=== PATIENT | female | born 1965 | race Caucasian/White ===

== ENCOUNTER → 2016-05-09 | Outpatient (CLI) | payer MEDICARE, MEDICAID | LOC: OD 12:26 | PROVIDERS: ATTEND Internal Medicine | DX: M25.551 Pain in right hip (principal); M25.552 Pain in left hip | CPT/HCPCS: 73522; 73552 ==

== ENCOUNTER → 2016-11-21 | Outpatient (CLI) | payer MEDICARE, MEDICAID ==
--- NOTE | 2016-11-21 16:10 | RADIOLOGY REPORT (SQ) ---
EXAM DESCRIPTION: CT HEAD WITHOUT COMPLETED DATE/TIME: 11/21/2016 3:54 pm REASON FOR STUDY: TREMOR R25.1 TREMOR, UNSPECIFIED COMPARISON: 12/11/2011 TECHNIQUE: Axial images acquired through the brain without intravenous contrast. Images reviewed wi th bone, brain and subdural windows. Images stored on PACS. All CT scanners at this facility use dose modulation, iterative reconstruction, and/or weight based d osing when appropriate to reduce radiation dose to as low as reasonably achievable (ALARA). [facility]: Dose Right [facility]: CareDose [facility]: Dose Right [facility]: Teradose 4D [facility]: Smart [facility] RADIATION DOSE: Up-to-date CT equipment and radiation dose reduction techniques were employed. CTDIv ol: 49.0 mGy. DLP: 783 mGy-cm. mGy. LIMITATIONS: None. FINDINGS: VENTRICLES: Normal size and contour. CEREBRUM: No masses. No hemorrhage. No midline shift. No evidence for acute infarction. Normal gra y/white matter differentiation. No areas of low density in the white matter. CEREBELLUM: No masses. No hemorrhage. No alteration of density. No evidence for acute infarction. EXTRAAXIAL SPACES: No fluid collections. No masses. ORBITS AND GLOBE: No intra- or extraconal masses. Normal contour of globe without masses. CALVARIUM: No fracture. PARANASAL SINUSES: No fluid or mucosal thickening. SOFT TISSUES: No mass or hematoma. OTHER: No other significant finding. IMPRESSION: NORMAL BRAIN CT WITHOUT CONTRAST. EVIDENCE OF ACUTE STROKE: NO. COMMENT: Quality ID # [id number]: Final reports with documentation of one or more dose reduction techniques (e.g., Automated exposure control, adjustment of the mA and/or kV according to patient size, use of iterative reconstruction technique) TECHNICAL DOCUMENTATION: JOB ID: [id number] [employer]- All Rights Reserved
== END ==
LOC: RAD 15:25
PROVIDERS: ATTEND Internal Medicine
DX: R25.1 Tremor, unspecified (principal)
CPT/HCPCS: 70450

== ENCOUNTER 2016-12-16 13:08 | Emergency (ER) | payer MEDICARE, MEDICAID ==
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
[2016-12-16] MEDS ORDERED: DIPH/PERTUSS(ACELL)/TETANUS VAC/PF 0.5 ML SYR (>=10YO) IM ONE (14:40)
[2016-12-16] MEDS ORDERED: RABIES VACCINE (PCEC)/PF 2.5 UNIT/1 ML KIT IM ONE (15:00)
[2016-12-16] MEDS ORDERED: RABIES IMMUNE GLOBULIN INJ/PF 300 UNIT/2 ML SDV IM ONE (15:00)
[2016-12-16] MEDS ORDERED: ONDANSETRON HCL INJ/PF 4 MG/2 ML SDV IV ONE (17:17)
[2016-12-16 17:47] VITALS: BP 112/68
== END 2016-12-16 17:39 | disposition home or self-care (01) ==
LOC: ER 13:08
DX: S61.452A Open bite of left hand, initial encounter (principal); W55.01XA Bitten by cat, initial encounter; F17.210 Nicotine dependence, cigarettes, uncomplicated; Z20.3 Contact with and (suspected) exposure to rabies
CPT/HCPCS: 90376; 90471; 90675; 90715; 96372; 99283

== ENCOUNTER 2017-02-17 10:23 | Inpatient (IN) | payer MEDICARE, MEDICAID ==
--- NOTE | 2017-02-17 11:50 | ER Document Report ---
ED Medical Screen (RME) - General Chief Complaint: Shortness Of Breath Stated Complaint: BREATHING PROBLEMS Time Seen by Provider: 02/17/17 11:39 Notes: 51-year-old female patient with COPD and multiple medical problems has a few day history of pain productive cough, developing laryngitis, has developed dyspnea on exertion. Went to see her primary care provider he was not in the office, went to see her pulmonary medicine doctor the check pulse ox told to come the emergency room. He has been doing doing nebs at home without benefit. She saw her primary care provider last and was treated with probably Tamiflu and Zithromax pack without any improvement. I have greeted and performed a rapid initial assessment of this patient. A comprehensive ED assessment and evaluation of the patient, analysis of test results and completion of the medical decision making process will be conducted by additional ED providers. TRAVEL OUTSIDE OF THE [place] IN LAST 30 DAYS: No - Related Data Allergies/Adverse Reactions: levofloxacin [From Levaquin] Allergy (Severe, Verified 12/18/16 13:24) Swelling of Throat lisinopril [Lisinopril] Allergy (Severe, Verified 12/18/16 13:24) sob, throat swelling acetaminophen [From Tylenol] Allergy (Verified 12/18/16 13:24) shock atorvastatin calcium [From Lipitor] Adverse Reaction (Severe, Verified 12/18/16 13:24) muscle cramps adhesive tape [Adhesive Tape] Adverse Reaction (Intermediate, Verified 12/18/16 13:24) Hives Past Medical History - Social History Chew tobacco use (# tins/day): No Frequency of alcohol use: None Drug Abuse: None - Past Medical History Cardiac Medical History: Reports: Hx Congestive Heart Failure, Hx Coronary Artery Disease - ANGINA, stent, Hx Heart Attack - 2011, Hx Hypercholesterolemia , Hx Hypertension - on meds Denies: Hx Atrial Fibrillation, Hx Peripheral Vascular Disease, Hx Pulmonary Embolism, Hx Heart Murmur Pulmonary Medical History: Reports: Hx Asthma, Hx Bronchitis - hx of, Hx COPD, Hx Pneumonia, Hx Respiratory Failure Denies: Hx Sleep Apnea, Hx Tuberculosis Neurological Medical History: Denies: Hx Cerebrovascular Accident, Hx Seizures Endocrine Medical History: Denies: Hx Graves' Disease, Hx Hyperthyroidism, Hx Hypothyroidism Renal/ Medical History: Reports: Hx Kidney Stones, Hx Ovarian Cysts. Denies: Hx End Stage Renal Disease, Hx Peritoneal Dialysis, Hx Pelvic Inflammatory Disease Malignancy Medical History: Denies: Hx Breast Cancer, Hx Cervical Cancer, Hx Leukemia, Hx Lung Cancer, Hx Ovarian Cancer GI Medical History: Denies: Hx Crohn's Disease, Hx Gastroesophageal Reflux Disease, Hx Hiatal Hernia, Hx Irritable Bowel, Hx Liver Failure, Hx Pancreatitis , Hx Ulcer Musculoskeltal Medical History: Reports Hx Arthritis, Denies Hx Fibromyalgia, Denies Hx Multiple Sclerosis, Denies Hx Muscular Dystrophy Psychiatric Medical History: Denies: Hx Bipolar Disorder, Hx Dementia, Hx Depression, Hx Post Traumatic Stress Disorder, Hx Schizophrenia Traumatic Medical History: Reports: Hx Fractures - right ankle fracture 1990 Infectious Medical History: Denies: Hx HIV Past Surgical History: Reports: Hx Cardiac Catheterization - with stents, Hx Cardiac Surgery - cardiac stent, Hx Section, Hx Pacemaker, Hx Tonsillectomy. Denies: Hx Appendectomy, Hx Bowel Surgery, Hx Cholecystectomy, Hx Colostomy, Hx Coronary Artery Bypass Graft, Hx Gastric Bypass Surgery, Hx Herniorrhaphy, Hx Hysterectomy, Hx Mastectomy, Hx Tubal Ligation - Immunizations Immunizations up to date: Yes Hx Diphtheria, Pertussis, Tetanus Vaccination: Yes History of Influenza Vaccine for 11/2016 - 04/2017 Season: No Physical Exam - Vital signs Vitals: Temp Pulse Resp BP Pulse Ox 98.1 F 84 16 134/92 H 96 02/17/17 10:41 02/17/17 10:41 02/17/17 10:41 02/17/17 10:41 02/17/17 10:41 Course - Vital Signs Vital signs: Temp Pulse Resp BP Pulse Ox 98.1 F 84 22 H 134/92 H 96 02/17/17 10:41 02/17/17 10:41 02/17/17 11:07 02/17/17 10:41 02/17/17 10:41
[2017-02-17 12:44] LABS: ABSOLUTE LYMPHOCYTES (AUTO) 1.2 10^3/uL (0.5-4.7); ABSOLUTE MONOCYTES (AUTO) 0.4 10^3/uL (0.1-1.4); ABSOLUTE NEUT (AUTO) 5.3 10^3/uL (1.7-8.2); BASOPHILS % (AUTO) 0.3 % (0-2); EOSINOPHILS % (AUTO) 0.3 % (0-6); HEMATOCRIT 42.2 % (36.0-47.0); HEMOGLOBIN 14.2 g/dL (12.0-15.5); MEAN CORPUSCULAR HEMOGLOBIN 27.5 pg (27.0-33.4); MEAN CORPUSCULAR HGB CONC 33.5 g/dL (32.0-36.0); MEAN CORPUSCULAR VOLUME 82 fl (80-97); MONOCYTES % (AUTO) 5.6 % (3-13); PLATELET COUNT 144 10^3/uL (150-450); RED BLOOD COUNT 5.14 10^6/uL (3.72-5.28); RED CELL DISTRIBUTION WIDTH 13.5 % (11.5-14.0); SEGMENTED NEUTROPHILS % (AUTO) 75.8 % (42-78); TOTAL CELLS COUNTED % (AUTO) 100 %; WHITE BLOOD COUNT 6.9 10^3/uL (4.0-10.5)
--- NOTE | 2017-02-17 12:49 | RADIOLOGY REPORT (SQ) ---
EXAM DESCRIPTION: CHEST SINGLE VIEW portable COMPLETED DATE/TIME: 02/17/2017 12:38 pm REASON FOR STUDY: COPD, PATTON, productive cough COMPARISON: 08/23/2015 EXAM PARAMETERS: NUMBER OF VIEWS: One view. TECHNIQUE: Single frontal radiographic view of the chest acquired. Portable RADIATION DOSE: NA LIMITATIONS: None. FINDINGS: LUNGS AND PLEURA: No opacities, masses or pneumothorax. No pleural effusion. MEDIASTINUM AND HILAR STRUCTURES: No masses. Contour normal. HEART AND VASCULAR STRUCTURES: Heart normal in size. Normal vasculature. BONES: No acute findings. HARDWARE: Stable OTHER: No other significant finding. IMPRESSION: NO ACUTE RADIOGRAPHIC FINDING IN THE CHEST. TECHNICAL DOCUMENTATION: JOB ID: [id number] [employer]- All Rights Reserved
[2017-02-17 12:53] LABS: ALANINE AMINOTRANSFERASE 45 U/L (9-52); ALBUMIN 4.1 g/dL (3.5-5.0); ALKALINE PHOSPHATASE 108 U/L (38-126); ANION GAP 12 (5-19); ASPARTATE AMINO TRANSFERASE 38 U/L (14-36); BILIRUBIN,DIRECT 0.2 mg/dL (0.0-0.4); BILIRUBIN,TOTAL 0.6 mg/dL (0.2-1.3); BLOOD UREA NITROGEN 5 mg/dL (7-20); CALCIUM 9.4 mg/dL (8.4-10.2); CARBON DIOXIDE 25 mmol/L (22-30); CHLORIDE 106 mmol/L (98-107); GLUCOSE 124 mg/dL (75-110); POTASSIUM 3.4 mmol/L (3.6-5.0); SODIUM 143.1 mmol/L (137-145)
[2017-02-17] MEDS ORDERED: IPRATROPIUM/ALBUTEROL 0.5-2.5 MG/3 ML AMPUL NEB ONE (12:53)
[2017-02-17] MEDS ORDERED: METHYLPREDNISOLONE INJ 125 MG/2 ML SDV IV ONE (12:53)
[2017-02-17] MEDS ORDERED: MAGNESIUM SULFATE/D5W 1 GM/100 ML RTUPB IV ONE (12:53)
--- NOTE | 2017-02-17 14:40 | ER Document Report ---
ED General - General Chief Complaint: Shortness Of Breath Stated Complaint: BREATHING PROBLEMS Time Seen by Provider: 02/17/17 11:39 TRAVEL OUTSIDE OF THE [place] IN LAST 30 DAYS: No - HPI Patient complains to provider of: Shortness of breath Notes: Patient coming in with a history of shortness of breath patient was recently seen by her torch straightener and heater started on a Z-[place] however continues to have shortness of breath sputum is nonproductive at this time. Denies any fevers chills. Patient was seen by her torch straightener and heater Dr. Fox today and told to come to the ER for low O2 saturations. By my evaluation patient is slightly tachypneic denies any chest pain denies any fevers chills nausea vomiting denies any abdominal pain. Patient has a normal SPO2 on examination. - Related Data Allergies/Adverse Reactions: levofloxacin [From Levaquin] Allergy (Severe, Verified 02/17/17 12:33) Swelling of Throat lisinopril [Lisinopril] Allergy (Severe, Verified 02/17/17 12:33) sob, throat swelling acetaminophen [From Tylenol] Allergy (Verified 02/17/17 12:33) shock rosuvastatin [From Crestor] Allergy (Verified 02/17/17 12:33) Hives atorvastatin calcium [From Lipitor] Adverse Reaction (Severe, Verified 02/17/17 12:33) muscle cramps adhesive tape [Adhesive Tape] Adverse Reaction (Intermediate, Verified 02/17/17 12:33) Hives Past Medical History - Social History Smoking Status: Current Some Day Smoker Chew tobacco use (# tins/day): No Frequency of alcohol use: None Drug Abuse: None Family History: CAD, CVA, DM, Malignancy Patient has suicidal ideation: No Patient has homicidal ideation: No - Past Medical History Cardiac Medical History: Reports: Hx Congestive Heart Failure, Hx Coronary Artery Disease - ANGINA, stent, Hx Heart Attack - 2011, Hx Hypercholesterolemia , Hx Hypertension - on meds Denies: Hx Atrial Fibrillation, Hx Peripheral Vascular Disease, Hx Pulmonary Embolism, Hx Heart Murmur Pulmonary Medical History: Reports: Hx Asthma, Hx Bronchitis - hx of, Hx COPD, Hx Pneumonia, Hx Respiratory Failure Denies: Hx Sleep Apnea, Hx Tuberculosis Neurological Medical History: Denies: Hx Cerebrovascular Accident, Hx Seizures Endocrine Medical History: Denies: Hx Graves' Disease, Hx Hyperthyroidism, Hx Hypothyroidism Renal/ Medical History: Reports: Hx Kidney Stones, Hx Ovarian Cysts. Denies: Hx End Stage Renal Disease, Hx Peritoneal Dialysis, Hx Pelvic Inflammatory Disease Malignancy Medical History: Denies: Hx Breast Cancer, Hx Cervical Cancer, Hx Leukemia, Hx Lung Cancer, Hx Ovarian Cancer GI Medical History: Denies: Hx Crohn's Disease, Hx Gastroesophageal Reflux Disease, Hx Hiatal Hernia, Hx Irritable Bowel, Hx Liver Failure, Hx Pancreatitis , Hx Ulcer Musculoskeltal Medical History: Reports Hx Arthritis, Denies Hx Fibromyalgia, Denies Hx Multiple Sclerosis, Denies Hx Muscular Dystrophy Psychiatric Medical History: Denies: Hx Bipolar Disorder, Hx Dementia, Hx Depression, Hx Post Traumatic Stress Disorder, Hx Schizophrenia Traumatic Medical History: Reports: Hx Fractures - right ankle fracture 1990 Infectious Medical History: Denies: Hx HIV Past Surgical History: Reports: Hx Cardiac Catheterization - with stents, Hx Cardiac Surgery - cardiac stent, Hx Section, Hx Pacemaker, Hx Tonsillectomy. Denies: Hx Appendectomy, Hx Bowel Surgery, Hx Cholecystectomy, Hx Colostomy, Hx Coronary Artery Bypass Graft, Hx Gastric Bypass Surgery, Hx Herniorrhaphy, Hx Hysterectomy, Hx Mastectomy, Hx Tubal Ligation - Immunizations Immunizations up to date: Yes Hx Diphtheria, Pertussis, Tetanus Vaccination: Yes Hx Pneumococcal Vaccination: 02/02/14 Review of Systems - Review of Systems Constitutional: No symptoms reported EENT: No symptoms reported Cardiovascular: No symptoms reported Respiratory: Short of breath, Wheezing Gastrointestinal: No symptoms reported Genitourinary: No symptoms reported Female Genitourinary: No symptoms reported Musculoskeletal: No symptoms reported Skin: No symptoms reported Hematologic/Lymphatic: No symptoms reported Neurological/Psychological: No symptoms reported -: Yes All other systems reviewed and negative Physical Exam - Vital signs Vitals: Temp Pulse Resp BP Pulse Ox 98.1 F 84 16 134/92 H 96 02/17/17 10:41 02/17/17 10:41 02/17/17 10:41 02/17/17 10:41 02/17/17 10:41 Interpretation: Normal - General General appearance: Appears well, Alert - HEENT Head: Normocephalic, Atraumatic Eyes: Normal Pupils: PERRL - Respiratory Respiratory status: Tachypnea Chest status: Nontender Breath sounds: Wheezing Chest palpation: Normal - Cardiovascular Rhythm: Regular Heart sounds: Normal auscultation Murmur: No - Abdominal Inspection: Normal Distension: No distension Bowel sounds: Normal Tenderness: Nontender Organomegaly: No organomegaly - Back Back: Normal, Nontender - Extremities General upper extremity: Normal inspection, Nontender, Normal color, Normal ROM , Normal temperature General lower extremity: Normal inspection, Nontender, Normal color, Normal ROM , Normal temperature, Normal weight bearing. No: Zulma's sign - Neurological Neuro grossly intact: Yes Cognition: Normal Orientation: AAOx4 Javier Coma Scale Eye Opening: Spontaneous [place] Coma Scale Verbal: Oriented [place] Coma Scale Motor: Obeys Commands Javier Coma Scale Total: 15 Speech: Normal Motor strength normal: LUE, RUE, LLE, RLE Sensory: Normal - Psychological Associated symptoms: Normal affect, Normal mood - Skin Skin Temperature: Warm Skin Moisture: Dry Skin Color: Normal Course - Re-evaluation Re-evalutation: 02/17/17 15:13 Patient laboratory studies showed a low potassium this will be replaced orally. Patient was ambulated in ER with SPO2 on the lower side [id number]. Patient still very tachypneic also in ambulation. No relief of symptoms therefore patient will be admitted for COPD exacerbation. 02/17/17 15:[address] Eli Benton covering physician for PCP agrees with admission to telemetry unit. - Vital Signs Vital signs: Temp Pulse Resp BP Pulse Ox 98.1 F 84 22 H 134/92 H 96 02/17/17 10:41 02/17/17 10:41 02/17/17 11:07 02/17/17 10:41 02/17/17 10:41 - Laboratory Result Diagrams: 02/17/17 12:15 02/17/17 12:15 Laboratory results interpreted by me: 02/17/17 02/17/17 02/17/17 12:15 12:15 13:40 Plt Count 144 L Carbonic Acid 1.03 L ABG pH 7.47 H ABG pCO2 34.1 L ABG pO2 71.5 L ABG Total CO2 25.1 H Potassium 3.4 L BUN 5 L Glucose 124 H AST 38 H Discharge - Discharge Clinical Impression: COPD with acute exacerbation Condition: Good Disposition: ADMITTED INPATIENT Admitting Provider: John Paul Carrasco covering Unit Admitted: Telemetry Referrals: JIMMY CORONA MD [Primary Care Provider] - Follow up as needed
[2017-02-17 15:01] LABS: ARTERIAL BLOOD FIO2 21%; ARTERIAL BLOOD H2CO3 1.03 mmol/L (1.05-1.35); ARTERIAL BLOOD HCO3 24.1 mmol/L (20-26); ARTERIAL BLOOD O2 SATURATION 95.4 % (94-98); ARTERIAL BLOOD PCO2 34.1 mmHg (35-45); ARTERIAL BLOOD PH 7.47 (7.35-7.45); ARTERIAL BLOOD PO2 71.5 mmHg (80-100); ARTERIAL BLOOD TOTAL CO2 25.1 mmol/L (21-25)
[2017-02-17] MEDS ORDERED: TRAMADOL HCL 50 MG TABLET PO PRN (19:07)
[2017-02-17] MEDS ORDERED: MECLIZINE HCL 25 MG TABLET PO PRN (19:07)
[2017-02-17] MEDS ORDERED: ENOXAPARIN SODIUM INJ 40 MG/0.4 ML DISP.SYRIN SUBCUT ONE (20:00)
[2017-02-17] MEDS ORDERED: (PENDING PHARMACY ID) (Pitavastatin Calcium [Livalo] 4 MG) PO SCH (22:00)
[2017-02-17] MEDS: GABAPENTIN 300 MG CAPSULE PO SCH (22:03)
[2017-02-17] MEDS: METHYLPREDNISOLONE INJ 125 MG/2 ML SDV IV SCH (22:04)
[2017-02-17] MEDS: IPRATROPIUM/ALBUTEROL 0.5-2.5 MG/3 ML AMPUL NEB PRN (22:32)
[2017-02-17] MEDS: DOXEPIN HCL 10 MG CAPSULE PO SCH (22:37)
[2017-02-18] MEDS: LANSOPRAZOLE 30 MG TAB.RAP.DR PO SCH (05:17)
[2017-02-18] MEDS: METHYLPREDNISOLONE INJ 125 MG/2 ML SDV IV SCH ×3 (05:17→22:01)
[2017-02-18] MEDS: IPRATROPIUM/ALBUTEROL 0.5-2.5 MG/3 ML AMPUL NEB PRN ×2 (09:40→17:17)
[2017-02-18] MEDS ORDERED: RANOLAZINE 2000 MG PO SCH (10:00)
[2017-02-18] MEDS ORDERED: OMEPRAZOLE 80 MG PO SCH (10:00)
[2017-02-18] MEDS: ENOXAPARIN SODIUM INJ 40 MG/0.4 ML DISP.SYRIN SUBCUT SCH (10:27)
[2017-02-18] MEDS: RANOLAZINE 500 MG TAB.SR.12H PO SCH (10:27)
--- NOTE | 2017-02-18 10:29 | EKG REPORT ---
SEVERITY:- ABNORMAL ECG - SINUS ARRHYTHMIA, RATE 64-88 PROBABLE LEFT ATRIAL ABNORMALITY BORDERLINE R WAVE PROGRESSION, ANTERIOR LEADS BORDERLINE T ABNORMALITIES, LATERAL LEADS : Confirmed by: Jefry Feng 18-Feb-2017 10:27:44
[2017-02-18] MEDS ORDERED: GABAPENTIN 300 MG CAPSULE PO PRN (11:10)
[2017-02-18] MEDS: CETIRIZINE 5 MG TABLET PO SCH (11:41)
[2017-02-18] MEDS: ASPIRIN 81 MG TABLET, CHEWABLE PO SCH (11:41)
[2017-02-18] MEDS: VALSARTAN 40 MG TABLET PO SCH (11:42)
[2017-02-18] MEDS: METOPROLOL SUCCINATE 25 MG TAB.SR.24H PO SCH (11:44)
[2017-02-18] MEDS: BUMETANIDE 1 MG TABLET PO SCH (11:44)
[2017-02-18] MEDS: CLOPIDOGREL BISULFATE 75 MG TABLET PO SCH (11:45)
[2017-02-18] MEDS ORDERED: ROFLUMILAST 500 MCG TABLET PO ONE (12:00)
[2017-02-18] MEDS ORDERED: (PENDING PHARMACY ID) (Tiotropium Br/Olodaterol Hcl [Stiolto Respimat Inhal Spray] 1 PUFF) IH SCH (17:45)
--- NOTE | 2017-02-18 17:48 | PDOC H&P ---
History of Present Illness Admission Date/PCP: 02/17/17 15:05 JIMMY CORONA MD History of Present Illness: DHAVAL ROD is a 51 year old female, She has a history of ischemic cardiomyopathy, chronic obstructive pulmonary disease, she was at the [employer] office for follow-up she was yet to see the [employer], she was found to have a low oxygen saturation by the office staff, she was then referred to the emergency room for evaluation. I saw her in the office couple of days before [place] when she presented with respiratory symptoms, cough and wheezing she was prescribed, antibiotic azithromycin with tapered dose prednisone but apparently she said her symptoms did not completely subside she felt some relief initially but after a while she became short of breath.In the emergency room she was evaluated, it was felt that she needed to be admitted to the hospital. The arterial blood gas on room air showed pH 7.47, PCO2 34.1, PO2 71, bicarbonate 24 Past Medical History Cardiac Medical History: Reports: Congestive Heart Failure, Coronary Artery Disease - ANGINA, stent, Myocardial Infarction - 2011, Hyperlipidema, Hypertension - on meds Pulmonary Medical History: Reports: Asthma, Bronchitis - hx of, Chronic Obstructive Pulmonary Disease (COPD), Pneumonia, Respiratory Failure Musculoskeltal Medical History: Reports: Arthritis Past Surgical History Past Surgical History: Reports: Cardiac Catheterization - with stents, Section, Pacemaker, Tonsillectomy Social History Smoking Status: Current Every Day Smoker Frequency of Alcohol Use: None Hx Recreational Drug Use: No Drugs: None Hx Prescription Drug Abuse: No - Advance Directive Resuscitation Status: Full Code Family History Family History: CAD, CVA, DM, Malignancy Parental Family History Reviewed: Yes Children Family History Reviewed: Yes Sibling(s) Family History Reviewed.: Yes Medication/Allergy Home Medications: Albuterol Sulfate [Proair HFA] 2 puff IH Q6HP PRN 02/17/17 Aspirin [Aspirin 81 mg Chewable Tablet] 81 mg PO DAILY 02/17/17 Budesonide/Formoterol Fumarate [Symbicort 160-4.5 Mcg Inhaler] 2 puff IH Q12 04/05 Bumetanide [Bumex 1 mg Tablet] 2 mg PO DAILY 02/17/17 Clopidogrel Bisulfate [Clopidogrel] 75 mg PO DAILY 02/17/17 Doxepin HCl [Sinequan 10 Mg Capsule] 10 mg PO QHS 02/17/17 Gabapentin [Neurontin] 600 mg PO QHS 02/17/17 Levocetirizine Dihydrochloride [Xyzal] 5 mg PO DAILY 02/17/17 Meclizine HCl [Antivert 25 mg Tablet] 25 mg PO Q8HP PRN 02/17/17 Metoprolol Succinate [Toprol Xl 25 mg Tab.sr] 25 mg PO DAILY 02/17/17 Omeprazole 80 mg PO DAILY 02/17/17 Pitavastatin Calcium [Livalo] 4 mg PO QHS 02/17/17 Ranolazine [Ranexa] 2,000 mg PO DAILY 02/17/17 Roflumilast [Daliresp 500 mcg Tablet] 500 mcg PO DAILY 02/17/17 Tiotropium Br/Olodaterol HCl [Stiolto Respimat Inhal [place]] 1 puff IH Q12 Tramadol HCl [Ultram 50 mg Tablet] 50 mg PO Q6HP PRN 02/17/17 Valsartan [Diovan 40 mg Tablet] 40 mg PO DAILY 02/17/17 Allergies/Adverse Reactions: levofloxacin [From Levaquin] Allergy (Severe, Verified 02/17/17 12:33) Swelling of Throat lisinopril [Lisinopril] Allergy (Severe, Verified 02/17/17 12:33) sob, throat swelling acetaminophen [From Tylenol] Allergy (Verified 02/17/17 12:33) shock rosuvastatin [From Crestor] Allergy (Verified 02/17/17 12:33) Hives atorvastatin calcium [From Lipitor] Adverse Reaction (Severe, Verified 02/17/17 12:33) muscle cramps adhesive tape [Adhesive Tape] Adverse Reaction (Intermediate, Verified 02/17/17 12:33) Hives Review of Systems Constitutional: ABSENT: chills, fever(s), headache(s), weight gain, weight loss Eyes: ABSENT: visual disturbances Ears: ABSENT: hearing changes Cardiovascular: PRESENT: dyspnea on exertion Respiratory: PRESENT: cough, dyspnea Gastrointestinal: ABSENT: abdominal pain, constipation, diarrhea, hematemesis, hematochezia, nausea, vomiting Genitourinary: ABSENT: dysuria, hematuria Musculoskeletal: ABSENT: joint swelling Integumentary: ABSENT: rash, wounds Neurological: ABSENT: abnormal gait, abnormal speech, confusion, dizziness, focal weakness, syncope Psychiatric: ABSENT: anxiety, depression, homidical ideation, suicidal ideation Endocrine: ABSENT: cold intolerance, heat intolerance, menstrual abnormalities, polydipsia, polyuria Hematologic/Lymphatic: ABSENT: easy bleeding, easy bruising, lymphadenopathy Physical Exam Vital Signs: Temp Pulse Resp BP Pulse Ox 98.8 F 86 22 H 148/82 H 97 02/18/17 15:26 02/18/17 17:17 02/18/17 17:17 02/18/17 15:26 02/18/17 17:17 Intake & Output 02/17/17 02/18/17 02/19/17 06:59 06:59 06:59 Intake Total 920 Balance 920 Weight 93.9 kg General appearance: PRESENT: no acute distress, well-developed, well-nourished Head exam: PRESENT: atraumatic, normocephalic Eye exam: PRESENT: PERRLA Ear exam: PRESENT: normal external ear exam Mouth exam: PRESENT: moist, tongue midline Respiratory exam: PRESENT: wheezes Cardiovascular exam: PRESENT: RRR, +S1, +S2 Pulses: PRESENT: normal dorsalis pedis pul, +2 pedal pulses bilateral Vascular exam: PRESENT: normal capillary refill GI/Abdominal exam: PRESENT: normal bowel sounds, soft Rectal exam: PRESENT: deferred Neurological exam: PRESENT: alert, awake, oriented to person, oriented to place , oriented to time, oriented to situation, CN II-XII grossly intact Psychiatric exam: PRESENT: appropriate affect, normal mood Skin exam: PRESENT: dry, intact, warm Results Impressions: Chest X-Ray 02/17/17 11:48 IMPRESSION: NO ACUTE RADIOGRAPHIC FINDING IN THE CHEST. Assessment & Plan - Diagnosis (1) Chronic obstructive pulmonary disease with (acute) exacerbation Is this a current diagnosis for this admission?: Yes Plan: She is admitted to be managed for COPD with acute exacerbation (2) Ischemic cardiomyopathy Is this a current diagnosis for this admission?: Yes
[2017-02-18 18:55] LABS: CREATINE KINASE MB 3.19 ng/mL (<4.55)
[2017-02-18 19:01] LABS: TROPONIN I < 0.012 ng/mL
[2017-02-18] MEDS ORDERED: IPRATROPIUM/ALBUTEROL 0.5-2.5 MG/3 ML AMPUL NEB PRN (19:56)
[2017-02-18] MEDS: IPRATROPIUM/ALBUTEROL 0.5-2.5 MG/3 ML AMPUL NEB SCH (20:47)
[2017-02-18] MEDS: GABAPENTIN 300 MG CAPSULE PO SCH (22:01)
[2017-02-18] MEDS: DOXEPIN HCL 10 MG CAPSULE PO SCH (22:01)
[2017-02-19] MEDS: IPRATROPIUM/ALBUTEROL 0.5-2.5 MG/3 ML AMPUL NEB SCH ×3 (01:59→13:29)
[2017-02-19 03:02] LABS: CREATINE KINASE MB 3.61 ng/mL (<4.55)
[2017-02-19 03:04] LABS: TROPONIN I < 0.012 ng/mL
[2017-02-19] MEDS: METHYLPREDNISOLONE INJ 125 MG/2 ML SDV IV SCH ×2 (06:38→13:29)
[2017-02-19] MEDS: LANSOPRAZOLE 30 MG TAB.RAP.DR PO SCH (06:38)
[2017-02-19 08:46] VITALS: BP 123/72
[2017-02-19] MEDS: ASPIRIN 81 MG TABLET, CHEWABLE PO SCH (09:36)
[2017-02-19] MEDS: BUMETANIDE 1 MG TABLET PO SCH (09:36)
[2017-02-19] MEDS: CETIRIZINE 5 MG TABLET PO SCH (09:37)
[2017-02-19] MEDS: CLOPIDOGREL BISULFATE 75 MG TABLET PO SCH (09:37)
[2017-02-19] MEDS: VALSARTAN 40 MG TABLET PO SCH (09:37)
[2017-02-19] MEDS: RANOLAZINE 500 MG TAB.SR.12H PO SCH (09:38)
[2017-02-19] MEDS: METOPROLOL SUCCINATE 25 MG TAB.SR.24H PO SCH (09:38)
[2017-02-19] MEDS: ENOXAPARIN SODIUM INJ 40 MG/0.4 ML DISP.SYRIN SUBCUT SCH (09:38)
[2017-02-19] MEDS ORDERED: ROFLUMILAST 500 MCG TABLET PO SCH (10:00)
[2017-02-19 11:29] LABS: CREATINE KINASE MB 3.78 ng/mL (<4.55); TROPONIN I < 0.012 ng/mL
--- NOTE | 2017-02-19 12:50 | PDOC DISCHARGE SUMMARY ---
General - Admit/Disc Date/PCP Admission Date/Primary Care Provider: 02/17/17 15:05 JIMMY CORONA MD Discharge Date: 02/19/17 - Discharge Diagnosis (1) Chronic obstructive pulmonary disease with (acute) exacerbation Is this a current diagnosis for this admission?: Yes (2) Ischemic cardiomyopathy Is this a current diagnosis for this admission?: Yes - Additional Information Resuscitation Status: Full Code Discharge Diet: Regular Discharge Activity: Activity As Tolerated Prescriptions: Dexamethasone [Dexpak] 1.5 mg PO ANGELICA #6 tab.ds.pk Home Medications: Albuterol Sulfate [Proair HFA] 2 puff IH Q6HP PRN 02/17/17 Aspirin [Aspirin 81 mg Chewable Tablet] 81 mg PO DAILY 02/17/17 Budesonide/Formoterol Fumarate [Symbicort 160-4.5 Mcg Inhaler] 2 puff IH Q12 04/05 Bumetanide [Bumex 1 mg Tablet] 2 mg PO DAILY 02/17/17 Clopidogrel Bisulfate [Clopidogrel] 75 mg PO DAILY 02/17/17 Doxepin HCl [Sinequan 10 mg Capsule] 10 mg PO QHS 02/17/17 Gabapentin [Neurontin] 600 mg PO QHS 02/17/17 Levocetirizine Dihydrochloride [Xyzal] 5 mg PO DAILY 02/17/17 Meclizine HCl [Antivert 25 mg Tablet] 25 mg PO Q8HP PRN 02/17/17 Metoprolol Succinate [Toprol Xl 25 mg Tab.sr] 25 mg PO DAILY 02/17/17 Omeprazole 80 mg PO DAILY 02/17/17 Pitavastatin Calcium [Livalo] 4 mg PO QHS 02/17/17 Ranolazine [Ranexa] 2,000 mg PO DAILY 02/17/17 Roflumilast [Daliresp 500 mcg Tablet] 500 mcg PO DAILY 02/17/17 Tiotropium Br/Olodaterol HCl [Stiolto Respimat Inhal [place]] 1 puff IH Q12 Tramadol HCl [Ultram 50 mg Tablet] 50 mg PO Q6HP PRN 02/17/17 Valsartan [Diovan 40 mg Tablet] 40 mg PO DAILY 02/17/17 Dexamethasone [Dexpak] 1.5 mg PO ANGELICA #6 tab.ds.pk 02/19/17 History of Present Illness History of Present Illness: DHAVAL RDO is a 51 year old female, She has a history of ischemic cardiomyopathy, chronic obstructive pulmonary disease, she was at the [facility] office for follow-up she was yet to see the shank maker, she was found to have a low oxygen saturation by the office staff, she was then referred to the emergency room for evaluation. I saw her in the office couple of days before [place] when she presented with respiratory symptoms, cough and wheezing she was prescribed, antibiotic azithromycin with tapered dose prednisone but apparently she said her symptoms did not completely subside she felt some relief initially but after a while she became short of breath.In the emergency room she was evaluated, it was felt that she needed to be admitted to the hospital. The arterial blood gas on room air showed pH 7.47, PCO2 34.1, PO2 71, bicarbonate 24 Hospital Course Hospital Course: Patient was admitted for the management of acute COPD exacerbation in the setting of chronic ischemic cardiomyopathy. She was treated with intravenous Solu-Medrol, bronchodilators with DuoNeb, IV antibiotic with very good results. This morning she wants to go home, she says she is able to walk distances without getting short of breath, she is also concerned about her pets, she has a dog and a cat and no one is home to feed them. She is not fully recovered lung function, on auscultation of the chest there is still faint wheeze in both lung he but she is bet on going home Physical Exam Vital Signs: Temp Pulse Resp BP Pulse Ox 98.4 F 89 18 123/72 94 02/19/17 08:45 02/19/17 08:45 02/19/17 08:45 02/19/17 08:45 02/19/17 08:45 Intake & Output 02/18/17 02/19/17 02/20/17 06:59 06:59 06:59 Intake Total 920 970 Balance 920 970 Weight 93.9 kg General appearance: PRESENT: no acute distress, well-developed, well-nourished Head exam: PRESENT: atraumatic, normocephalic Eye exam: PRESENT: conjunctiva pink, EOMI, PERRLA Ear exam: PRESENT: normal external ear exam Mouth exam: PRESENT: moist, tongue midline Neck exam: PRESENT: full ROM Respiratory exam: PRESENT: wheezes Cardiovascular exam: PRESENT: RRR, +S1, +S2 Pulses: PRESENT: normal dorsalis pedis pul, +2 pedal pulses bilateral Vascular exam: PRESENT: normal capillary refill GI/Abdominal exam: PRESENT: normal bowel sounds, soft Rectal exam: PRESENT: deferred Neurological exam: PRESENT: alert, awake, oriented to person, oriented to place , oriented to time, oriented to situation, CN II-XII grossly intact Psychiatric exam: PRESENT: appropriate affect, normal mood Skin exam: PRESENT: dry, intact, warm Results Laboratory Results: 02/18/17 02/18/17 02/19/17 18:00 18:00 02:07 Creatine Kinase 112 107 CK-MB (CK-2) 3.19 Troponin I < 0.012 02/19/17 02/19/17 02/19/17 02:07 10:43 10:43 Creatine Kinase 79 CK-MB (CK-2) 3.61 3.78 Troponin I < 0.012 < 0.012 Impressions: Chest X-Ray 02/17/17 11:48 IMPRESSION: NO ACUTE RADIOGRAPHIC FINDING IN THE CHEST.
[2017-02-20] MEDS ORDERED: VALSARTAN 40 MG TABLET PO SCH (06:00)
[2017-02-20] MEDS ORDERED: ROFLUMILAST 500 MCG TABLET PO SCH (06:00)
[2017-02-20] MEDS ORDERED: METOPROLOL SUCCINATE 25 MG TAB.SR.24H PO SCH (06:00)
--- NOTE | 2017-02-20 15:08 | Physician Advisory Note ---
Physician Advisor ProgressNote .: [place] [facility] [place] [facility] have reviewed [facility] medical record for this patient. Physician Advisor Statement: Please consider documenting, if you agree: 1. "Chronic systolic & diastolic CHF, EF 25-30%, with mild pulmonary HTN" 2. "obesity with BMI 40.4" Thanks! CK
== END 2017-02-19 14:00 | disposition home or self-care (01) | DRG 192 ==
LOC: ER 10:23 → EH 15:05 → 5 17:45
PROVIDERS: ADMIT Internal Medicine; ATTEND Internal Medicine
PROC: 3E0F73Z Introduction of Anti-inflammatory into Respiratory Tract, Via Natural or Artificial Opening (ICD-10-PCS; principal; 2017-02-17)
DX: J44.1 Chronic obstructive pulmonary disease with (acute) exacerbation (principal); I25.5 Ischemic cardiomyopathy; I50.9 Heart failure, unspecified; I25.119 Atherosclerotic heart disease of native coronary artery with unspecified angina pectoris; E78.5 Hyperlipidemia, unspecified; I11.0 Hypertensive heart disease with heart failure; M19.90 Unspecified osteoarthritis, unspecified site; F17.210 Nicotine dependence, cigarettes, uncomplicated; I25.2 Old myocardial infarction; Z79.82 Long term (current) use of aspirin; Z79.899 Other long term (current) drug therapy; Z95.0 Presence of cardiac pacemaker; Z95.5 Presence of coronary angioplasty implant and graft; Z82.3 Family history of stroke; Z83.3 Family history of diabetes mellitus; Z80.9 Family history of malignant neoplasm, unspecified; Z82.49 Family history of ischemic heart disease and other diseases of the circulatory system; Z88.6 Allergy status to analgesic agent; Z88.3 Allergy status to other anti-infective agents; Z88.8 Allergy status to other drugs, medicaments and biological substances
CPT/HCPCS: 36415; 36600; 71045; 80053; 82550; 82553; 82803; 84484; 85025; 87040; 87070; 87205; 87493; 93005; 93010; 94640; 96365; 96375; 99285; J2930; J3475; J3490; J7620

== ENCOUNTER → 2017-06-02 | Outpatient (CLI) | payer MEDICARE, MEDICAID ==
--- NOTE | 2017-06-02 14:11 | RADIOLOGY REPORT (SQ) ---
EXAM DESCRIPTION: CT HEAD WITHOUT COMPLETED DATE/TIME: 06/02/2017 1:58 pm REASON FOR STUDY: HEADACHE (R51) R51 HEADACHE COMPARISON: CT brain 11/21/2016 TECHNIQUE: Axial images acquired through the brain without intravenous contrast. Images reviewed wi th bone, brain and subdural windows. Additional sagittal and coronal reconstructions were generated. Images stored on PACS. All CT scanners at this facility use dose modulation, iterative reconstruction, and/or weight based d osing when appropriate to reduce radiation dose to as low as reasonably achievable (ALARA). [facility]: Dose Right [facility]: CareDose [facility]: Dose Right [facility]: Teradose 4D [facility]: [place] RADIATION DOSE: CT Rad equipment meets quality standard of care and radiation dose reduction techniq ues were employed. CTDIvol: 48.5 mGy. DLP: 855 mGy-cm. mGy. LIMITATIONS: None. FINDINGS: VENTRICLES: Normal size and contour. CEREBRUM: No masses. No hemorrhage. No midline shift. No evidence for acute infarction. Normal gra y/white matter differentiation. No areas of low density in the white matter. CEREBELLUM: No masses. No hemorrhage. No alteration of density. No evidence for acute infarction. EXTRAAXIAL SPACES: No fluid collections. No masses. ORBITS AND GLOBE: No intra- or extraconal masses. Normal contour of globe without masses. CALVARIUM: No fracture. PARANASAL SINUSES: No fluid or mucosal thickening. SOFT TISSUES: No mass or hematoma. OTHER: No other significant finding. IMPRESSION: NORMAL BRAIN CT WITHOUT CONTRAST. EVIDENCE OF ACUTE STROKE: NO. COMMENT: Quality ID # [id number]: Final reports with documentation of one or more dose reduction techniques (e.g., Automated exposure control, adjustment of the mA and/or kV according to patient size, use of iterative reconstruction technique) TECHNICAL DOCUMENTATION: JOB ID: [id number] [email or web address]- All Rights Reserved Reading location - IP/workstation name: [email or web address]
== END ==
LOC: RAD 13:32
PROVIDERS: ATTEND Internal Medicine
DX: R51 Headache (principal)
CPT/HCPCS: 70450

== ENCOUNTER → 2017-06-09 | Outpatient (CLI) | payer MEDICARE, MEDICAID | LOC: OD 11:07 | PROVIDERS: ATTEND Otolaryngology | DX: J30.2 Other seasonal allergic rhinitis (principal) | CPT/HCPCS: 36415; 82785; 86003 ==

== ENCOUNTER 2017-06-24 07:39 | Day surgery (SDC) | payer MEDICARE, MEDICAID ==
[~2017-06-24 07:39] MED LIST: DIPHENHYDRAMINE HCL 50 MG/ML VIAL ONE; EPINEPHRINE INJ 1 MG/10 ML DISP.SYRIN ONE; FENTANYL CITRATE INJ/PF 100 MCG/2 ML AMPUL ONE; FLUMAZENIL INJ 0.5 MG/5 ML VIAL ONE; GLUCAGON,HUMAN RECOMB 1 MG INJ ONE; NALOXONE HCL INJ/PF 0.4 MG/1 ML SDV ONE; ONDANSETRON HCL INJ/PF 4 MG/2 ML SDV ONE
[2017-06-24] MEDS: MIDAZOLAM 2 MG/2 ML INJ ONE ×2 (08:08→08:12)
--- NOTE | 2017-06-24 08:27 | Operative Report ---
Operative Report DATE OF SURGERY: 06/24/17 Operative Report: The risks benefits and alternatives of the procedure explained to the patient in detail and informed consent is obtained.A GIF Olympus video scope was inserted into the patient's mouth and hypopharynx, the esophagus is identified intubated and insufflated, the scope was then advanced through the esophagus stomach and duodenum, retroflexion maneuver is done, the esophagus stomach and first and second portions of the duodenum examined PREOPERATIVE DIAGNOSIS: Dysphagia POSTOPERATIVE DIAGNOSIS: Schatzki's ring status post breakage. Hiatal hernia. Gastritis status post biopsy rule out Helicobacter pylori. Duodenitis OPERATION: EGD with biopsy SURGEON: RAJEEV ONOFRE ANESTHESIA: Moderate Sedation - 4 mg of Versed, 50 mcg of fentanyl. Conscious sedation monitoring time 30 minutes. TISSUE REMOVED OR ALTERED: As noted above. COMPLICATIONS: None. ESTIMATED BLOOD LOSS: None. INTRAOPERATIVE FINDINGS: As noted above. PROCEDURE: Patient tolerated procedure well. No immediate postprocedure complications are noted. Patient discharged in good condition. Discharge date 06/24/2017. Discharge diet: Regular. Discharge activity: Regular. 2-3 week follow-up to discuss findings. Patient is instructed to call the office or proceed to the emergency room should there be any further problems or questions. We will wait on pathology.
[2017-06-24 09:21] VITALS: BP 102/67
== END 2017-06-24 09:30 | disposition home or self-care (01) ==
LOC: END 07:39
PROVIDERS: ATTEND Internal Medicine Gastroenterology
DX: K22.2 Esophageal obstruction (principal); K44.9 Diaphragmatic hernia without obstruction or gangrene; K29.80 Duodenitis without bleeding; K29.70 Gastritis, unspecified, without bleeding; K21.9 Gastro-esophageal reflux disease without esophagitis; F17.210 Nicotine dependence, cigarettes, uncomplicated; Z79.899 Other long term (current) drug therapy; Z79.82 Long term (current) use of aspirin; Z79.51 Long term (current) use of inhaled steroids; Z88.8 Allergy status to other drugs, medicaments and biological substances
CPT/HCPCS: 43239; 88342 ×2; 88305 ×2; J2250; J3010; J0171; J1200; J1610; J2310; J2405; J3490

== ENCOUNTER → 2017-11-13 | Outpatient (CLI) | payer MEDICARE, MEDICAID ==
--- NOTE | 2017-11-13 08:30 | RADIOLOGY REPORT (SQ) ---
EXAM DESCRIPTION: CT CHEST WITHOUT COMPLETED DATE/TIME: 11/13/2017 8:16 am REASON FOR STUDY: DYSPNEA (R06.00) R06.00 DYSPNEA, UNSPECIFIED COMPARISON: 01/31/2014 TECHNIQUE: CT scan performed of the chest without intravenous contrast. Images reviewed with lung, soft tissue and bone windows. Reconstructed coronal and sagittal MPR images reviewed. All images st ored on PACS. All CT scanners at this facility use dose modulation, iterative reconstruction, and/or weight based d osing when appropriate to reduce radiation dose to as low as reasonably achievable (ALARA). [facility]: Dose Right [facility]: CareDose [facility]: Dose Right [facility]: Teradose 4D [facility]: [employer] RADIATION DOSE: CT Rad equipment meets quality standard of care and radiation dose reduction techniq ues were employed. CTDIvol: 12.1 mGy. DLP: 458 mGy-cm. mGy. LIMITATIONS: No technical limitations. FINDINGS: LUNGS AND PLEURA: Mild bilateral emphysematous changes are again noted. No focal masses, consolidation or effusions. HILAR AND MEDIASTINAL STRUCTURES: No identified masses or abnormal nodes. No obvious aneurysm. HEART AND VASCULAR STRUCTURES: No aneurysm. No pericardial effusion. UPPER ABDOMEN: Left adrenal adenoma is again noted. Calcified renal mass previously described is not imaged on the current study. THYROID AND OTHER SOFT TISSUES: No masses. No adenopathy. BONES: No significant finding. HARDWARE: Battery pack and leads remain in place. OTHER: No other significant findings. IMPRESSION: Mild emphysematous changes. No acute findings in the chest. Stable left adrenal adenom a. TECHNICAL DOCUMENTATION: JOB ID: [id number] Quality ID # [id number]: Final reports with documentation of one or more dose reduction techniques (e.g., Au tomated exposure control, adjustment of the mA and/or kV according to patient size, use of iterative reconstruction technique) 2010 [employer]- All Rights Reserved Reading location - IP/workstation name: [email or web address]
== END ==
LOC: RAD 07:57
PROVIDERS: ATTEND Physician Assistant
DX: R06.00 Dyspnea, unspecified (principal); D35.02 Benign neoplasm of left adrenal gland
CPT/HCPCS: 71250

== ENCOUNTER 2018-05-25 13:50 | Inpatient (IN) | payer MEDICARE, MEDICAID ==
[2018-05-25 15:07] LABS: HEMATOCRIT 42.2 % (36.0-47.0); HEMOGLOBIN 14.4 g/dL (12.0-15.5); MEAN CORPUSCULAR HEMOGLOBIN 28.3 pg (27.0-33.4); MEAN CORPUSCULAR VOLUME 83 fl (80-97); RED BLOOD COUNT 5.06 10^6/uL (3.72-5.28); WHITE BLOOD COUNT 4.9 10^3/uL (4.0-10.5)
--- NOTE | 2018-05-25 15:26 | RADIOLOGY REPORT (SQ) ---
EXAM DESCRIPTION: CHEST 2 VIEWS COMPLETED DATE/TIME: 05/25/2018 3:12 pm REASON FOR STUDY: COPD COMPARISON: CT chest 11/13/2017 AP chest 02/17/2017, 08/23/2015 EXAM PARAMETERS: NUMBER OF VIEWS: two views TECHNIQUE: Digital Frontal and Lateral radiographic views of the chest acquired. RADIATION DOSE: NA LIMITATIONS: none FINDINGS: LUNGS AND PLEURA: Minimal airspace disease just above the left hemidiaphragm, pneumonia ve rsus atelectasis. Remainder of the lungs are hyperinflated but clear. No pleural effusion or pneumothorax. MEDIASTINUM AND HILAR STRUCTURES: No masses or contour abnormalities. HEART AND VASCULAR STRUCTURES: Heart normal size. No evidence for failure. BONES: No acute findings. HARDWARE: Left-sided dual lead pacemaker OTHER: No other significant finding. IMPRESSION: Minimal patchy left basilar airspace disease atelectasis versus pneumonia. TECHNICAL DOCUMENTATION: JOB ID: [id number] [employer]- All Rights Reserved Reading location - IP/workstation name: [email or web address]
[2018-05-25 15:27] LABS: ALANINE AMINOTRANSFERASE 34 U/L (9-52); ALBUMIN 3.7 g/dL (3.5-5.0); ALKALINE PHOSPHATASE 94 U/L (38-126); ANION GAP 10 (5-19); ASPARTATE AMINO TRANSFERASE 33 U/L (14-36); BILIRUBIN,DIRECT 0.3 mg/dL (0.0-0.4); BILIRUBIN,TOTAL 0.5 mg/dL (0.2-1.3); BLOOD UREA NITROGEN 9 mg/dL (7-20); CALCIUM 8.9 mg/dL (8.4-10.2); CARBON DIOXIDE 23 mmol/L (22-30); CHLORIDE 103 mmol/L (98-107); GLUCOSE 92 mg/dL (75-110); POTASSIUM 4.4 mmol/L (3.6-5.0); SODIUM 135.9 mmol/L (137-145); TOTAL PROTEIN 6.9 g/dL (6.3-8.2)
[2018-05-25 15:29] LABS: PLATELET COUNT 97 10^3/uL (150-450)
[2018-05-25] MEDS: METHYLPREDNISOLONE INJ 125 MG/2 ML SDV IV SCH ×2 (15:57→21:58)
[2018-05-25] MEDS: IPRATROPIUM/ALBUTEROL 0.5-2.5 MG/3 ML AMPUL NEB SCH ×2 (16:34→19:51)
[2018-05-25] MEDS ORDERED: DEXAMETHASONE 4 MG TABLET PO SCH ×2 (18:00→22:00)
[2018-05-25] MEDS ORDERED: AZITHROMYCIN 500 MG in DEXTROSE 5%-WATER 250 ML IV SCH (18:00)
[2018-05-25] MEDS ORDERED: MECLIZINE HCL 25 MG TABLET PO PRN (20:14)
[2018-05-25] MEDS ORDERED: (PENDING PHARMACY ID) (Pitavastatin Calcium [Livalo] 4 MG) PO SCH (20:15)
[2018-05-25] MEDS ORDERED: ROFLUMILAST PO SCH (20:15)
[2018-05-25] MEDS ORDERED: RANOLAZINE 2000 MG PO SCH (20:15)
[2018-05-25] MEDS ORDERED: PILOCARPINE HCL 5 MG PO SCH (20:15)
--- NOTE | 2018-05-25 20:18 | PDOC H&P ---
History of Present Illness Admission Date/PCP: 05/25/18 13:50 History of Present Illness: DHAVAL ROD is a 52 year old female, she has ischemic cardiomyopathy, chronic obstructive pulmonary disease, she came to the office for evaluation of respiratory symptoms, cough, shortness of breath, wheezing, the oxygen saturation was in the low 90s, attempt was made to treat outpatient previously without much success. She was admitted for management of her symptoms. Right chest x-ray that was done demonstrated minimal patchy left basilar airspace disease, atelectasis versus pneumonia there was also hyperinflated lung but clear. She continues to struggle with smoking cessation, she uses vapor as replacement for tobacco use Past Medical History Cardiac Medical History: Reports: Congestive Heart Failure, Coronary Artery Disease - ANGINA, stent, Myocardial Infarction - 2012, Hyperlipidema Pulmonary Medical History: Reports: Asthma, Bronchitis - hx of, Chronic Obstructive Pulmonary Disease (COPD), Respiratory Failure Musculoskeltal Medical History: Reports: Arthritis Past Surgical History Past Surgical History: Reports: Cardiac Catheterization - with stents, Section, Hysterectomy, Pacemaker, Tonsillectomy Social History Smoking Status: Former Smoker Last Time Smoked: 02/09/18 Frequency of Alcohol Use: Occasional Hx Recreational Drug Use: No Drugs: None Hx Prescription Drug Abuse: No Family History Family History: CAD, CVA, DM, Malignancy Parental Family History Reviewed: Yes Children Family History Reviewed: Yes Sibling(s) Family History Reviewed.: Yes Medication/Allergy Home Medications: Albuterol Sulfate [Proair HFA Inhalation Aerosol 8.5 gm MDI] 2 puff IH Q4HP PRN 05/25/18 Aspirin [Ecotrin 81 mg EC Tablet] 81 mg PO DAILY 05/25/18 Budesonide/Formoterol Fumarate [Symbicort HFA 160-4.5 mcg Inhaler 6 gm] 2 puff IH Q12 05/25/18 Bumetanide [Bumex 1 mg Tablet] 2 mg PO Q12 05/25/18 Chlorpheniramine Maleate [Chlor-Trimeton 4 mg Tablet] 4 mg PO Q6HP PRN 05/25/18 Clopidogrel Bisulfate [Plavix 75 mg Tablet] 75 mg PO DAILY 05/25/18 Dexlansoprazole [Dexilant 60 mg Capsule] 60 mg PO DAILY 05/25/18 Doxepin HCl [Sinequan 10 mg Capsule] 10 mg PO QHS 05/25/18 Gabapentin [Neurontin] 600 mg PO Q6HP PRN 05/25/18 Levocetirizine Dihydrochloride [Xyzal] 5 mg PO QHS 05/25/18 Meclizine HCl [Antivert 25 mg Tablet] 25 mg PO Q8HP PRN 05/25/18 Metoprolol Succinate [Toprol Xl 25 mg Tab.sr] 25 mg PO DAILY 05/25/18 [place] HCl [[place]] 5 mg PO Q6 05/25/18 Pitavastatin Calcium [Livalo] 4 mg PO DAILY 05/25/18 Ranolazine [Ranexa] 2,000 mg PO DAILY 05/25/18 Roflumilast [Daliresp 500 mcg Tablet] 1,500 mcg PO DAILY 05/25/18 Tiotropium Br/Olodaterol HCl [Stiolto Respimat Inhal [place]] 1 puff IH Q12 11/04 Tramadol HCl [Ultram 50 mg Tablet] 50 mg PO Q6HP PRN 05/25/18 Valsartan [Diovan 40 mg Tablet] 40 mg PO DAILY 05/25/18 Allergies/Adverse Reactions: acetaminophen [From Tylenol] Allergy (Severe, Verified 06/22/17 14:36) Anaphylaxis levofloxacin [From Levaquin] Allergy (Severe, Verified 06/22/17 14:36) Anaphylaxis lisinopril [Lisinopril] Allergy (Severe, Verified 06/22/17 14:36) sob, throat swelling rosuvastatin [From Crestor] Allergy (Mild, Verified 06/22/17 14:36) Hives atorvastatin calcium [From Lipitor] Adverse Reaction (Severe, Verified 06/22/17 14:36) muscle cramps adhesive tape [Adhesive Tape] Adverse Reaction (Intermediate, Verified 06/22/17 14:36) Hives Review of Systems Constitutional: ABSENT: chills, fever(s), headache(s), weight gain, weight loss Eyes: ABSENT: visual disturbances Ears: ABSENT: hearing changes Cardiovascular: ABSENT: chest pain, dyspnea on exertion, edema, orthropnea, palpitations Respiratory: PRESENT: cough, dyspnea, sputum Gastrointestinal: ABSENT: as per HPI, abdominal pain, bloating, coffee ground emesis, constipation, diarrhea, dysphagia, heartburn, hematemesis, hematochezia, melena, nausea, vomiting, other Genitourinary: ABSENT: dysuria, hematuria Musculoskeletal: ABSENT: joint swelling Integumentary: ABSENT: rash, wounds Neurological: ABSENT: abnormal gait, abnormal speech, confusion, dizziness, focal weakness, syncope Psychiatric: ABSENT: anxiety, depression, homidical ideation, suicidal ideation Endocrine: ABSENT: cold intolerance, heat intolerance, menstrual abnormalities, polydipsia, polyuria Hematologic/Lymphatic: ABSENT: easy bleeding, easy bruising, lymphadenopathy Physical Exam Vital Signs: Temp Pulse Resp BP Pulse Ox 98.4 F 80 26 H 135/77 H 93 05/25/18 14:15 05/25/18 16:34 05/25/18 16:34 05/25/18 14:15 05/25/18 16:34 Intake & Output 05/24/18 05/25/18 05/26/18 06:59 06:59 06:59 Intake Total 240 Balance 240 General appearance: PRESENT: mild distress Head exam: PRESENT: atraumatic, normocephalic Eye exam: PRESENT: PERRLA Neck exam: PRESENT: full ROM Respiratory exam: PRESENT: wheezes Cardiovascular exam: PRESENT: RRR, +S1, +S2 Vascular exam: PRESENT: normal capillary refill GI/Abdominal exam: PRESENT: normal bowel sounds, soft Rectal exam: PRESENT: deferred Neurological exam: PRESENT: alert, motor sensory deficit Psychiatric exam: PRESENT: appropriate affect, normal mood Skin exam: PRESENT: dry, intact, warm Results Laboratory Results: 05/25/18 14:52 05/25/18 14:52 05/25/18 05/25/18 14:52 14:52 WBC 4.9 RBC 5.06 Hgb 14.4 Hct 42.2 MCV 83 MCH 28.3 MCHC 34.0 RDW 14.0 Plt Count 97 L Sodium 135.9 L Potassium 4.4 Chloride 103 Carbon Dioxide 23 Anion Gap 10 BUN 9 Creatinine 0.64 Est GFR ( Amer) > 60 Est GFR (Non-Af Amer) > 60 Glucose 92 Calcium 8.9 Total Bilirubin 0.5 AST 33 ALT 34 Alkaline Phosphatase 94 Total Protein 6.9 Albumin 3.7 Impressions: Chest X-Ray 05/25/18 00:00 IMPRESSION: Minimal patchy left basilar airspace disease atelectasis versus pneumonia. Assessment & Plan - Diagnosis (1) COPD with acute exacerbation Is this a current diagnosis for this admission?: Yes Plan: Patient is admitted for management
[2018-05-25] MEDS ORDERED: ONDANSETRON 4 MG TAB.RAPDIS ONE (20:32)
[2018-05-25] MEDS: VALSARTAN 40 MG TABLET PO SCH (20:50)
[2018-05-25] MEDS: METOPROLOL SUCCINATE 25 MG TAB.SR.24H PO SCH (21:49)
[2018-05-25] MEDS: CLOPIDOGREL BISULFATE 75 MG TABLET PO SCH (21:49)
[2018-05-25] MEDS: BUMETANIDE 1 MG TABLET PO SCH (21:49)
[2018-05-25] MEDS: PANTOPRAZOLE SODIUM 40 MG TABLET.DR PO SCH (21:49)
[2018-05-25] MEDS: ROFLUMILAST 500 MCG TABLET PO SCH (21:50)
[2018-05-25] MEDS: CETIRIZINE 5 MG TABLET PO SCH (21:50)
[2018-05-25] MEDS: DOXEPIN HCL 10 MG CAPSULE PO SCH (21:55)
[2018-05-25] MEDS: GABAPENTIN 300 MG CAPSULE PO PRN (21:57)
[2018-05-25] MEDS: ASPIRIN 81 MG TABLET, ENT COATED PO SCH (21:57)
[2018-05-25] MEDS: DEXAMETHASONE SOD PHOSPHATE INJ 4 MG/1 ML VIAL IV SCH (21:58)
[2018-05-25] MEDS: TRAMADOL HCL 50 MG TABLET PO PRN (22:00)
[2018-05-25] MEDS ORDERED: (PENDING PHARMACY ID) (Tiotropium Br/Olodaterol Hcl [Stiolto Respimat Inhal Spray] 1 PUFF) IH SCH (22:00)
[2018-05-25] MEDS ORDERED: ATORVASTATIN CALCIUM 20 MG TABLET PO SCH (22:00)
[2018-05-26 00:18] LABS: APPEARANCE,URINE TURBID; BILIRUBIN,URINE NEGATIVE (NEGATIVE); COLOR,URINE YELLOW; GLUCOSE, URINE NEGATIVE (NEGATIVE); KETONES,URINE NEGATIVE (NEGATIVE); LEUKOCYTE ESTERASE,URINE NEGATIVE (NEGATIVE); NITRITE,URINE NEGATIVE (NEGATIVE); PROTEIN,URINE 30 mg/dL (NEGATIVE); URINE SPECIFIC GRAVITY 1.024
[2018-05-26] MEDS: IPRATROPIUM/ALBUTEROL 0.5-2.5 MG/3 ML AMPUL NEB SCH ×6 (00:28→20:55)
[2018-05-26] MEDS: DEXAMETHASONE SOD PHOSPHATE INJ 4 MG/1 ML VIAL IV SCH ×3 (05:31→22:39)
[2018-05-26] MEDS: ONDANSETRON 4 MG TAB.RAPDIS PO PRN ×2 (07:49→17:26)
[2018-05-26] MEDS ORDERED: FLUTICASONE/VILANTEROL 200-25 MCG/DOSE IH SCH (10:00)
[2018-05-26] MEDS: RANOLAZINE 500 MG TAB.SR.12H PO SCH (10:03)
[2018-05-26] MEDS: PANTOPRAZOLE SODIUM 40 MG TABLET.DR PO SCH (10:03)
[2018-05-26] MEDS: ROFLUMILAST 500 MCG TABLET PO SCH (10:05)
[2018-05-26] MEDS: CLOPIDOGREL BISULFATE 75 MG TABLET PO SCH (10:06)
[2018-05-26] MEDS: METOPROLOL SUCCINATE 25 MG TAB.SR.24H PO SCH (10:06)
[2018-05-26] MEDS: ASPIRIN 81 MG TABLET, ENT COATED PO SCH (10:06)
[2018-05-26] MEDS: BUMETANIDE 1 MG TABLET PO SCH ×2 (10:06→22:39)
[2018-05-26] MEDS: VALSARTAN 40 MG TABLET PO SCH (10:07)
[2018-05-26] MEDS ORDERED: LIVALO 4 MG PO SCH (15:00)
[2018-05-26] MEDS: AZITHROMYCIN 250 MG TABLET PO SCH (17:18)
--- NOTE | 2018-05-26 17:21 | PDOC PROGRESS REPORT ---
Subjective Progress Note for:: 05/26/18 Subjective:: Patient was seen by the bedside, she was admitted yesterday for acute COPD exacerbation, she did not tolerate intravenous azithromycin because of the burning sensation that she felt. She continues to have difficulty breathing with the use of accessory muscle of respiration Reason For Visit: ACUTE COPD,DIARRHEA Physical Exam Vital Signs: Temp Pulse Resp BP Pulse Ox 97.9 F 84 16 121/70 92 05/26/18 12:27 05/26/18 14:00 05/26/18 12:30 05/26/18 12:27 05/26/18 12:30 Intake & Output 05/25/18 05/26/18 05/27/18 06:59 06:59 06:59 Intake Total 1125 Output Total 600 Balance 525 Weight 89.7 kg General appearance: PRESENT: obese Eye exam: PRESENT: PERRLA Respiratory exam: PRESENT: wheezes Cardiovascular exam: PRESENT: +S1, +S2 GI/Abdominal exam: PRESENT: soft Neurological exam: PRESENT: alert, CN II-XII grossly intact Results Laboratory Results: 05/25/18 14:52 05/25/18 14:52 05/25/18 17:14 Urine Color YELLOW Urine Appearance TURBID Urine pH 6.0 Ur Specific [place] 1.024 Urine Protein 30 H Urine Glucose (UA) NEGATIVE Urine Ketones NEGATIVE Urine Blood SMALL H Urine Nitrite NEGATIVE Ur Leukocyte Esterase NEGATIVE Impressions: Chest X-Ray 05/25/18 00:00 IMPRESSION: Minimal patchy left basilar airspace disease atelectasis versus pneumonia. Assessment & Plan - Diagnosis (1) COPD with acute exacerbation Is this a current diagnosis for this admission?: Yes Plan: Continue IV dexamethasone,bronchodilators (2) History of [place] (myocardial infarction) Is this a current diagnosis for this admission?: Yes (3) Ischemic cardiomyopathy Is this a current diagnosis for this admission?: Yes
[2018-05-26] MEDS: LIVALO 4 MG PO SCH (22:40)
[2018-05-26] MEDS: DOXEPIN HCL 10 MG CAPSULE PO SCH (22:42)
[2018-05-26] MEDS: CETIRIZINE 5 MG TABLET PO SCH (22:42)
[2018-05-26] MEDS: TRAMADOL HCL 50 MG TABLET PO PRN (23:12)
[2018-05-26] MEDS: GABAPENTIN 300 MG CAPSULE PO PRN (23:12)
[2018-05-26] MEDS: CHLORPHENIRAMINE MALEATE 4 MG TABLET PO PRN (23:12)
[2018-05-27] MEDS: IPRATROPIUM/ALBUTEROL 0.5-2.5 MG/3 ML AMPUL NEB SCH ×6 (00:09→20:25)
[2018-05-27] MEDS: DEXAMETHASONE SOD PHOSPHATE INJ 4 MG/1 ML VIAL IV SCH ×3 (05:40→21:56)
[2018-05-27] MEDS: ENOXAPARIN SODIUM INJ 40 MG/0.4 ML DISP.SYRIN SUBCUT SCH (09:36)
[2018-05-27] MEDS: RANOLAZINE 500 MG TAB.SR.12H PO SCH (10:43)
[2018-05-27] MEDS: VALSARTAN 40 MG TABLET PO SCH (10:44)
[2018-05-27] MEDS: ASPIRIN 81 MG TABLET, ENT COATED PO SCH (10:44)
[2018-05-27] MEDS: ROFLUMILAST 500 MCG TABLET PO SCH (10:44)
[2018-05-27] MEDS: PANTOPRAZOLE SODIUM 40 MG TABLET.DR PO SCH (10:44)
[2018-05-27] MEDS: CLOPIDOGREL BISULFATE 75 MG TABLET PO SCH (10:44)
[2018-05-27] MEDS: ONDANSETRON 4 MG TAB.RAPDIS PO PRN (10:44)
[2018-05-27] MEDS: METOPROLOL SUCCINATE 50 MG TAB.SR.24H PO SCH (10:44)
[2018-05-27] MEDS ORDERED: CETIRIZINE 5 MG TABLET PO ONE (11:00)
[2018-05-27] MEDS: BUMETANIDE 1 MG TABLET PO SCH (17:23)
[2018-05-27] MEDS: [UNRECOGNIZED DRUG - OTHER] IH SCH (17:31)
[2018-05-27] MEDS: BUDESONIDE IH SCH (17:31)
[2018-05-27] MEDS: AZITHROMYCIN 250 MG TABLET PO SCH (17:31)
[2018-05-27] MEDS: CHLORPHENIRAMINE MALEATE 4 MG TABLET PO PRN (17:31)
[2018-05-27] MEDS: Tiotropium Br/Olodaterol Hcl [Stiolto Respimat Inhal Spray] IH SCH (17:32)
--- NOTE | 2018-05-27 20:23 | PDOC PROGRESS REPORT ---
Subjective Progress Note for:: 05/27/18 Subjective:: Patient is alert admitted for COPD exacerbation with a background cardiomyopathy Reason For Visit: ACUTE COPD EXACERBATION Physical Exam Vital Signs: Temp Pulse Resp BP Pulse Ox 98.3 F 59 L 18 96/64 L 93 05/27/18 19:11 05/27/18 19:11 05/27/18 19:11 05/27/18 19:11 05/27/18 19:11 Intake & Output 05/26/18 05/27/18 05/28/18 06:59 06:59 06:59 Intake Total 1125 2488 1159 Output Total 600 2250 600 Balance 525 238 559 Weight 89.7 kg 94.8 kg General appearance: PRESENT: no acute distress Eye exam: PRESENT: PERRLA Respiratory exam: PRESENT: wheezes Cardiovascular exam: PRESENT: +S1, +S2 GI/Abdominal exam: PRESENT: soft Neurological exam: PRESENT: alert Results Laboratory Results: 05/25/18 14:52 05/25/18 14:52 Impressions: Chest X-Ray 05/25/18 00:00 IMPRESSION: Minimal patchy left basilar airspace disease atelectasis versus pneumonia. Assessment & Plan - Diagnosis (1) COPD with acute exacerbation Is this a current diagnosis for this admission?: Yes Plan: Continue IV dexamethasone,bronchodilators (2) History of [place] (myocardial infarction) Is this a current diagnosis for this admission?: Yes (3) Ischemic cardiomyopathy Is this a current diagnosis for this admission?: Yes
[2018-05-27] MEDS: LIVALO 4 MG PO SCH (21:56)
[2018-05-27] MEDS: DOXEPIN HCL 10 MG CAPSULE PO SCH (21:56)
[2018-05-27] MEDS: TRAMADOL HCL 50 MG TABLET PO PRN (22:03)
[2018-05-27] MEDS: GABAPENTIN 300 MG CAPSULE PO PRN (22:03)
[2018-05-28] MEDS: IPRATROPIUM/ALBUTEROL 0.5-2.5 MG/3 ML AMPUL NEB SCH ×6 (00:16→20:52)
[2018-05-28] MEDS: DEXAMETHASONE SOD PHOSPHATE INJ 4 MG/1 ML VIAL IV SCH ×3 (05:21→21:21)
[2018-05-28] MEDS: BUMETANIDE 1 MG TABLET PO SCH ×2 (05:25→17:40)
[2018-05-28] MEDS: BUDESONIDE IH SCH ×2 (05:25→17:45)
[2018-05-28] MEDS: [UNRECOGNIZED DRUG - OTHER] IH SCH ×2 (05:25→17:45)
[2018-05-28] MEDS: Tiotropium Br/Olodaterol Hcl [Stiolto Respimat Inhal Spray] IH SCH ×2 (05:26→17:45)
[2018-05-28 06:08] LABS: HEMATOCRIT 40.2 % (36.0-47.0); HEMOGLOBIN 13.7 g/dL (12.0-15.5); MEAN CORPUSCULAR HEMOGLOBIN 28.3 pg (27.0-33.4); MEAN CORPUSCULAR HGB CONC 34.1 g/dL (32.0-36.0); MEAN CORPUSCULAR VOLUME 83 fl (80-97); PLATELET COUNT 106 10^3/uL (150-450); RED BLOOD COUNT 4.83 10^6/uL (3.72-5.28); RED CELL DISTRIBUTION WIDTH 13.8 % (11.5-14.0)
[2018-05-28 06:14] LABS: INTERNATIONAL RATION (INR) 0.94
[2018-05-28 06:15] LABS: PARTIAL THROMBOPLASTIN TIME 24.9 SEC (23.5-35.8)
[2018-05-28] MEDS ORDERED: CETIRIZINE 5 MG TABLET PO SCH (08:00)
[2018-05-28] MEDS: RANOLAZINE 500 MG TAB.SR.12H PO SCH (09:11)
[2018-05-28] MEDS: ENOXAPARIN SODIUM INJ 40 MG/0.4 ML DISP.SYRIN SUBCUT SCH (09:11)
[2018-05-28] MEDS: CHLORPHENIRAMINE MALEATE 4 MG TABLET PO PRN (09:29)
[2018-05-28] MEDS: CETIRIZINE 5 MG TABLET PO SCH (09:29)
[2018-05-28] MEDS: ASPIRIN 81 MG TABLET, ENT COATED PO SCH (09:29)
[2018-05-28] MEDS: VALSARTAN 40 MG TABLET PO SCH (09:30)
[2018-05-28] MEDS: METOPROLOL SUCCINATE 50 MG TAB.SR.24H PO SCH (09:30)
[2018-05-28] MEDS: ROFLUMILAST 500 MCG TABLET PO SCH (09:30)
[2018-05-28] MEDS: CLOPIDOGREL BISULFATE 75 MG TABLET PO SCH (09:30)
[2018-05-28] MEDS: PANTOPRAZOLE SODIUM 40 MG TABLET.DR PO SCH (09:30)
[2018-05-28] MEDS ORDERED: BENZOCAINE/MENTHOL SORE THROAT LOZENGE BUCCAL PRN (09:33)
--- NOTE | 2018-05-28 12:52 | PDOC PROGRESS REPORT ---
Subjective Progress Note for:: 05/28/18 Subjective:: Patient was admitted for the COPD and a cardiomyopathy Patient was put on dexamethasone and nebulizer treatments Patient is feeling much better Patient is denied any chest pain to than any shortness of the breath No fever no chills Reason For Visit: ACUTE COPD EXACERBATION Physical Exam Vital Signs: Temp Pulse Resp BP Pulse Ox 97.3 F 73 22 H 104/58 L 91 L 05/28/18 11:51 05/28/18 11:51 05/28/18 11:51 05/28/18 11:51 05/28/18 11:51 Intake & Output 05/27/18 05/28/18 05/29/18 06:59 06:59 06:59 Intake Total 2488 2187 Output Total 2250 1080 Balance 238 1107 Weight 94.8 kg 91.8 kg General appearance: PRESENT: no acute distress, well-developed, well-nourished Head exam: PRESENT: atraumatic, normocephalic Eye exam: PRESENT: conjunctiva pink, EOMI, PERRLA. ABSENT: scleral icterus Ear exam: PRESENT: normal external ear exam Mouth exam: PRESENT: moist, tongue midline Neck exam: PRESENT: full ROM. ABSENT: carotid bruit, JVD, lymphadenopathy, thyromegaly Respiratory exam: PRESENT: clear to auscultation augie Cardiovascular exam: PRESENT: RRR. ABSENT: diastolic murmur, rubs, systolic murmur Pulses: PRESENT: normal dorsalis pedis pul, +2 pedal pulses bilateral Vascular exam: PRESENT: normal capillary refill GI/Abdominal exam: PRESENT: normal bowel sounds, soft. ABSENT: distended, guarding, mass, organolmegaly, rebound, tenderness Rectal exam: PRESENT: deferred Musculoskeletal exam: PRESENT: ambulatory Neurological exam: PRESENT: alert, awake, oriented to person, oriented to place, oriented to time, oriented to situation, CN II-XII grossly intact. ABSENT: motor sensory deficit Psychiatric exam: PRESENT: appropriate affect, normal mood. ABSENT: homicidal ideation, suicidal ideation Skin exam: PRESENT: dry, intact, warm. ABSENT: cyanosis, rash Results Laboratory Results: 05/28/18 05:22 05/25/18 14:52 05/28/18 05:22 WBC 7.0 RBC 4.83 Hgb 13.7 Hct 40.2 MCV 83 MCH 28.3 MCHC 34.1 RDW 13.8 Plt Count 106 L Impressions: Chest X-Ray 05/25/18 00:00 IMPRESSION: Minimal patchy left basilar airspace disease atelectasis versus pneumonia. Assessment & Plan - Diagnosis (1) COPD with acute exacerbation Is this a current diagnosis for this admission?: Yes Plan: Reduce the IV dexamethasone Repeat the chest x-ray Continues to current medications (2) Ischemic cardiomyopathy Is this a current diagnosis for this admission?: Yes Plan: Continues to all current medications (3) Chronic systolic heart failure Is this a current diagnosis for this admission?: Yes Plan: Continues to Bumex - Time Time Spent with patient: 15-24 minutes Medications reviewed and adjusted accordingly: Yes Anticipated discharge: Home Within: Other - Plan Summary Plan Summary: Continues to current medications
--- NOTE | 2018-05-28 14:08 | RADIOLOGY REPORT (SQ) ---
EXAM DESCRIPTION: CHEST 2 VIEWS COMPLETED DATE/TIME: 05/28/2018 1:36 pm REASON FOR STUDY: copd COMPARISON: 05/25/2018. EXAM PARAMETERS: NUMBER OF VIEWS: two views TECHNIQUE: Digital Frontal and Lateral radiographic views of the chest acquired. RADIATION DOSE: NA LIMITATIONS: none FINDINGS: LUNGS AND PLEURA: Improved aeration in the left lung base. No lobar infiltrates, masses o r pneumothorax. No pleural effusion. MEDIASTINUM AND HILAR STRUCTURES: No masses or contour abnormalities. HEART AND VASCULAR STRUCTURES: Heart normal size. No evidence for failure. BONES: No acute findings. HARDWARE: None in the chest. OTHER: Defibrillator. IMPRESSION: IMPROVED AERATION IN THE LEFT LUNG BASE. NO ACUTE RADIOGRAPHIC FINDING IN THE CHEST. TECHNICAL DOCUMENTATION: JOB ID: [id number] [employer]- All Rights Reserved Reading location - IP/workstation name: [email or web address]
[2018-05-28] MEDS: AZITHROMYCIN 250 MG TABLET PO SCH (17:44)
[2018-05-28] MEDS: DOXEPIN HCL 10 MG CAPSULE PO SCH (21:17)
[2018-05-28] MEDS: GABAPENTIN 300 MG CAPSULE PO PRN (21:17)
[2018-05-28] MEDS: TRAMADOL HCL 50 MG TABLET PO PRN (21:17)
[2018-05-28] MEDS: LIVALO 4 MG PO SCH (21:18)
[2018-05-29] MEDS: IPRATROPIUM/ALBUTEROL 0.5-2.5 MG/3 ML AMPUL NEB SCH ×4 (00:44→12:12)
[2018-05-29 04:30] LABS: ANION GAP 10 (5-19); BLOOD UREA NITROGEN 21 mg/dL (7-20); CALCIUM 8.7 mg/dL (8.4-10.2); CARBON DIOXIDE 28 mmol/L (22-30); CHLORIDE 101 mmol/L (98-107); GLUCOSE 146 mg/dL (75-110)
[2018-05-29] MEDS: BUDESONIDE IH SCH (05:40)
[2018-05-29] MEDS: Tiotropium Br/Olodaterol Hcl [Stiolto Respimat Inhal Spray] IH SCH (05:40)
[2018-05-29] MEDS: [UNRECOGNIZED DRUG - OTHER] IH SCH (05:40)
[2018-05-29] MEDS: DEXAMETHASONE SOD PHOSPHATE INJ 4 MG/1 ML VIAL IV SCH (05:41)
[2018-05-29] MEDS: BUMETANIDE 1 MG TABLET PO SCH (05:41)
[2018-05-29] MEDS: CLOPIDOGREL BISULFATE 75 MG TABLET PO SCH (10:08)
[2018-05-29] MEDS: ROFLUMILAST 500 MCG TABLET PO SCH (10:08)
[2018-05-29] MEDS: ASPIRIN 81 MG TABLET, ENT COATED PO SCH (10:08)
[2018-05-29] MEDS: PANTOPRAZOLE SODIUM 40 MG TABLET.DR PO SCH (10:09)
[2018-05-29] MEDS: VALSARTAN 40 MG TABLET PO SCH (10:09)
[2018-05-29] MEDS: METOPROLOL SUCCINATE 50 MG TAB.SR.24H PO SCH (10:09)
[2018-05-29] MEDS: CETIRIZINE 5 MG TABLET PO SCH (10:09)
[2018-05-29] MEDS: RANOLAZINE 500 MG TAB.SR.12H PO SCH (10:15)
[2018-05-29] MEDS: CHLORPHENIRAMINE MALEATE 4 MG TABLET PO PRN (10:21)
--- NOTE | 2018-05-29 10:38 | PDOC PROGRESS REPORT ---
Subjective Progress Note for:: 05/29/18 Subjective:: Patient is currently doing much better but still wheezing Patient's chest x-ray is all stable Patient expressed to go home Patient's denied any chest pain to than any shortness of breath Reason For Visit: ACUTE COPD EXACERBATION Physical Exam Vital Signs: Temp Pulse Resp BP Pulse Ox 97.6 F 61 18 103/57 L 93 05/29/18 07:47 05/29/18 09:19 05/29/18 09:19 05/29/18 07:47 05/29/18 09:19 Intake & Output 05/28/18 05/29/18 05/30/18 06:59 06:59 06:59 Intake Total 2187 944 Output Total 1080 2025 Balance 1107 -1081 Weight 91.8 kg 94.6 kg General appearance: PRESENT: no acute distress, well-developed, well-nourished Head exam: PRESENT: atraumatic, normocephalic Eye exam: PRESENT: conjunctiva pink, EOMI, PERRLA. ABSENT: scleral icterus Ear exam: PRESENT: normal external ear exam Mouth exam: PRESENT: moist, tongue midline Neck exam: PRESENT: full ROM. ABSENT: carotid bruit, JVD, lymphadenopathy, thyromegaly Respiratory exam: PRESENT: clear to auscultation augie Cardiovascular exam: PRESENT: RRR. ABSENT: diastolic murmur, rubs, systolic murmur Vascular exam: PRESENT: normal capillary refill GI/Abdominal exam: PRESENT: normal bowel sounds, soft. ABSENT: distended, guarding, mass, organolmegaly, rebound, tenderness Rectal exam: PRESENT: deferred Musculoskeletal exam: PRESENT: ambulatory Neurological exam: PRESENT: alert, awake, oriented to person, oriented to place, oriented to time, oriented to situation, CN II-XII grossly intact. ABSENT: motor sensory deficit Psychiatric exam: PRESENT: appropriate affect, normal mood. ABSENT: homicidal ideation, suicidal ideation Skin exam: PRESENT: dry, intact, warm. ABSENT: cyanosis, rash Results Laboratory Results: 05/28/18 05:22 05/29/18 03:25 05/29/18 03:25 Sodium 139.0 Potassium 4.0 Chloride 101 Carbon Dioxide 28 Anion Gap 10 BUN 21 H Creatinine 0.75 Est GFR ( Amer) > 60 Est GFR (Non-Af Amer) > 60 Glucose 146 H Calcium 8.7 Impressions: Chest X-Ray 05/28/18 00:00 IMPRESSION: IMPROVED AERATION IN THE LEFT LUNG BASE. NO ACUTE RADIOGRAPHIC FINDING IN THE CHEST. Assessment & Plan - Diagnosis (1) COPD with acute exacerbation Is this a current diagnosis for this admission?: Yes Plan: Currently all improving but according to the nursing staff patient was wheezing this morning we will DC the IV Solu-Medrol started on p.o. Solu-Medrol patient's desire to go home and hopefully next 24 hours of the patient is remained stable and the p.o. steroid can go home (2) Ischemic cardiomyopathy Is this a current diagnosis for this admission?: Yes Plan: Continues to all current medications (3) Chronic systolic heart failure Is this a current diagnosis for this admission?: Yes Plan: Continues to Bumex - Time Time Spent with patient: 15-24 minutes Medications reviewed and adjusted accordingly: Yes Anticipated discharge: Home Within: within 24 hours - Plan Summary Plan Summary: DC the IV's dexamethasone start on a p.o. discussed with the patient is still not ready to go home but patient is very insistent to go home Because the patient have any money to be feed discussed with the patient That if the patient remains stable the next 24 hours we will discharge it with the p.o. medications
[2018-05-29] MEDS ORDERED: DEXAMETHASONE 4 MG TABLET PO SCH (14:00)
[2018-05-29 14:38] VITALS: BP 104/62
--- NOTE | 2018-06-25 13:11 | PDOC DISCHARGE SUMMARY ---
General - Admit/Disc Date/PCP Admission Date/Primary Care Provider: 05/26/18 17:22 Discharge Date: 05/29/18 - Discharge Diagnosis (1) COPD with acute exacerbation Is this a current diagnosis for this admission?: Yes (2) Ischemic cardiomyopathy Is this a current diagnosis for this admission?: Yes (3) Chronic systolic heart failure Is this a current diagnosis for this admission?: Yes - Additional Information Discharge Diet: As Tolerated Discharge Activity: Balance Activity w/Rest Home Medications: Albuterol Sulfate [Proair HFA Inhalation Aerosol 8.5 gm MDI] 2 puff IH Q4HP PRN 05/25/18 Aspirin [Ecotrin 81 mg EC Tablet] 81 mg PO DAILY 05/25/18 Budesonide/Formoterol Fumarate [Symbicort HFA 160-4.5 mcg Inhaler 6 gm] 2 puff IH Q12 05/25/18 Bumetanide [Bumex 1 mg Tablet] 2 mg PO Q12 05/25/18 Chlorpheniramine Maleate [Chlor-Trimeton 4 mg Tablet] 4 mg PO Q6HP PRN 05/25/18 Clopidogrel Bisulfate [Plavix 75 mg Tablet] 75 mg PO DAILY 05/25/18 Dexlansoprazole [Dexilant 60 mg Capsule] 60 mg PO DAILY 05/25/18 Doxepin HCl [Sinequan 10 mg Capsule] 10 mg PO QHS 05/25/18 Gabapentin [Neurontin] 600 mg PO Q6HP PRN 05/25/18 Levocetirizine Dihydrochloride [Xyzal] 5 mg PO QHS 05/25/18 Meclizine HCl [Antivert 25 mg Tablet] 25 mg PO Q8HP PRN 05/25/18 Metoprolol Succinate [Toprol Xl 25 mg Tab.sr] 25 mg PO DAILY 05/25/18 Pilocarpine HCl [Salagen] 5 mg PO Q6 05/25/18 Pitavastatin Calcium [Livalo] 4 mg PO DAILY 05/25/18 Ranolazine [Ranexa] 2,000 mg PO DAILY 05/25/18 Roflumilast [Daliresp 500 mcg Tablet] 1,500 mcg PO DAILY 05/25/18 Tiotropium Br/Olodaterol HCl [Stiolto Respimat Inhal [place]] 1 puff IH Q12 05/25/18 Tramadol HCl [Ultram 50 mg Tablet] 50 mg PO Q6HP PRN 05/25/18 Valsartan [Diovan 40 mg Tablet] 40 mg PO DAILY 05/25/18 History of Present Illness Patient complains of: Shortness of the breath History of Present Illness: DHAVAL ROD is a 52 year old female Patient was admitted from Dr. Coker with complaint of a COPD and acute exa cerbation shortness of the breath Hospital Course Hospital Course: Patient was admitted for COPD acute exacerbation patient was started on a nebulizer treatment steroid and antibiotics Patient responds very well switch everything to the p.o. Patients wants to go home's Patient's other medical blood work was all stable Patients follow outpatient Dr. Coker Physical Exam Vital Signs: Temp Pulse Resp BP Pulse Ox 98.1 F 67 18 104/62 90 L 05/29/18 14:37 05/29/18 14:37 05/29/18 14:37 05/29/18 14:37 05/29/18 14:37 General appearance: PRESENT: no acute distress, well-developed, well-nourished Head exam: PRESENT: atraumatic, normocephalic Eye exam: PRESENT: conjunctiva pink, EOMI, PERRLA. ABSENT: scleral icterus Ear exam: PRESENT: normal external ear exam Mouth exam: PRESENT: moist, tongue midline Neck exam: PRESENT: full ROM. ABSENT: carotid bruit, JVD, lymphadenopathy, thyromegaly Respiratory exam: PRESENT: clear to auscultation augie Cardiovascular exam: PRESENT: RRR. ABSENT: diastolic murmur, rubs, systolic murmur Vascular exam: PRESENT: normal capillary refill GI/Abdominal exam: PRESENT: normal bowel sounds, soft. ABSENT: distended, guarding, mass, organolmegaly, rebound, tenderness Rectal exam: PRESENT: deferred Musculoskeletal exam: PRESENT: ambulatory Neurological exam: PRESENT: alert, awake, oriented to person, oriented to place, oriented to time, oriented to situation, CN II-XII grossly intact. ABSENT: motor sensory deficit Psychiatric exam: PRESENT: appropriate affect, normal mood. ABSENT: homicidal ideation, suicidal ideation Skin exam: PRESENT: dry, intact, warm. ABSENT: cyanosis, rash Results Laboratory Results: 05/28/18 05:22 05/29/18 03:25 Impressions: Chest X-Ray 05/28/18 00:00 IMPRESSION: IMPROVED AERATION IN THE LEFT LUNG BASE. NO ACUTE RADIOGRAPHIC FINDING IN THE CHEST. Qualifiers - * PATIENT BEING DISCHARGED WITH ANY OF THE FOLLOWING DIAGNOSIS: No VTE patient discharged on overlapping Therapy?: Yes Acute Heart Failure Is this a Heart Failure Patient?: No Plan Time Spent: Less than 30 Minutes
== END 2018-05-29 15:49 | disposition home or self-care (01) | DRG 191 ==
LOC: 3W 13:50 → INTOOBSV 13:50 → OBSVTOIN 05-26 17:22
PROVIDERS: ADMIT Internal Medicine; ATTEND Internal Medicine
PROC: 3E0F73Z Introduction of Anti-inflammatory into Respiratory Tract, Via Natural or Artificial Opening (ICD-10-PCS; principal; 2018-05-25)
DX: J44.1 Chronic obstructive pulmonary disease with (acute) exacerbation (principal); I50.22 Chronic systolic (congestive) heart failure; I25.5 Ischemic cardiomyopathy; I25.10 Atherosclerotic heart disease of native coronary artery without angina pectoris; E78.5 Hyperlipidemia, unspecified; M19.90 Unspecified osteoarthritis, unspecified site; E66.9 Obesity, unspecified; I25.2 Old myocardial infarction; Z95.5 Presence of coronary angioplasty implant and graft; Z90.710 Acquired absence of both cervix and uterus; Z95.0 Presence of cardiac pacemaker; Z87.891 Personal history of nicotine dependence; Z79.82 Long term (current) use of aspirin; Z79.02 Long term (current) use of antithrombotics/antiplatelets; Z79.899 Other long term (current) drug therapy; Z88.6 Allergy status to analgesic agent; Z88.3 Allergy status to other anti-infective agents; Z88.8 Allergy status to other drugs, medicaments and biological substances; Z83.3 Family history of diabetes mellitus; Z80.9 Family history of malignant neoplasm, unspecified; Z82.3 Family history of stroke; Z82.49 Family history of ischemic heart disease and other diseases of the circulatory system
CPT/HCPCS: 36415; 71046; 80048; 80076; 81001; 85027; 85610; 85730; 87040; 87493; 94640; G0378; G0379; J0456; J1100; J3490; J7060; J7620; S0119

== ENCOUNTER → 2018-06-07 | Outpatient (CLI) | payer MEDICARE, MEDICAID ==
--- NOTE | 2018-06-07 11:45 | WOMENS IMAGING REPORT ---
EXAM DESCRIPTION: 3D SCREENING MAMMO BILAT COMPLETED DATE/TIME: 06/07/2018 9:36 am REASON FOR STUDY: ROUTINE BILATERAL SCREENING;Z12.31 Z12.31 ENCNTR SCREEN MAMMOGRAM FOR MALIGNANT N EOPLASM OF MINE COMPARISON: 2011 TECHNIQUE: Standard craniocaudal and mediolateral oblique views of each breast recorded using digita l acquisition and breast tomosynthesis. LIMITATIONS: Motion artifact on some of the images, patient could not tolerate compression FINDINGS: No masses, calcifications or architectural distortion. No areas of suspicion. Read with the assistance of CAD. [facility] - R2 Cenova Version 1.3 .[facility] - R2 Cenova Version 2.1 .[facility] - R2 Cenova Version 2.4 .[facility] [place] - R2 Cenova Version 2.4 .[facility] - R2 Mimeographer Version 9.2 IMPRESSION: NORMAL MAMMOGRAM. BIRADS 1. BREAST DENSITY: b. There are scattered areas of fibroglandular density. BIRAD: 1 NEGATIVE RECOMMENDATION: ROUTINE SCREENING COMMENT: The patient has been notified of the results by letter per SA requirements. Additional no tification policies are in place for contacting patient with suspicious or incomplete findings. Quality ID #[id number]: The [employer] recommends an annual screening mammogram for women aged 40 years or over. This facility utilizes a reminder system to ensure that all patients receive reminder letters, and/or direct phone calls for appointments. This includes reminders for routine scr eening mammograms, diagnostic mammograms, or other Breast Imaging Interventions when appropriate. Th is patient will be placed in the appropriate reminder system. The [employer] (ACR) has developed recommendations for screening MRI of the breast s in certain patient populations, to be used in conjunction with mammography. Breast MRI surveillanc e may be appropriate for women with more than 20% lifetime risk of developing breast cancer as deter mined by genetic testing, significant family history of the disease, or history of mantle radiation f or Hodgkins Disease. ACR Practice Guidelines 2008. DBT Technology DBT is a type of tomographic mammography. With conventional mammography, overlapping breast tissue ma y make lesions difficult to detect, even with good compression. DBT uses an x-ray tube that rotates a round the breast, taking images at different angles. These images are then combined to create thin sl ices of the breast that the radiologist can view as a 3D reconstruction. The [facility] can perform full-field digital mammograms (2D imaging); or DBT (3D imaging); or both, in a combination mode that quickly performs both the mammogram and the tomosynthesis scan while the breast is still compressed. PQRS 6045F: Fluoroscopic imaging is not utilized for breast tomosynthesis. TECHNICAL DOCUMENTATION: FINDING NUMBER: (1) ASSESSMENT: (1) JOB ID: [id number] [employer]- All Rights Reserved Reading location - IP/workstation name: [email or web address]
== END ==
LOC: WI 09:24
PROVIDERS: ATTEND Internal Medicine
DX: Z12.31 Encounter for screening mammogram for malignant neoplasm of breast (principal)
CPT/HCPCS: 77063; 77067

== ENCOUNTER → 2018-09-02 | Outpatient (CLI) | payer MEDICARE, MEDICAID ==
[2018-09-03 14:37] LABS: ANTICHROMATIN AB 0.2 AI (0.0-0.9); CENTROMERE B AB 0.2 AI (0.0-0.9); JO-1 ANTIBODY (ANACOMP) <0.2 AI (0.0-0.9); SJOGREN'S ANTI-SS-B AB <0.2 AI (0.0-0.9); SJOGREN'S SS-A ANTIBODY <0.2 AI (0.0-0.9)
[2018-09-03 16:05] LABS: DNA DOUBLE STRAND ANTIBODY ANA <1 IU/mL (0-9)
[2018-09-03 17:36] LABS: CYTOPLASMIC (C-ANCA) <1:20 titer (Neg:<1:20)
[2018-09-04 18:19] LABS: ATYPICAL PANCA <1:20 titer (Neg:<1:20); PERINUCLEAR (P-ANCA) <1:20 titer (Neg:<1:20)
== END ==
LOC: OD 13:44
PROVIDERS: ATTEND Internal Medicine Pulmonary Disease
DX: R94.2 Abnormal results of pulmonary function studies (principal)
CPT/HCPCS: 36415; 86021; 86225; 86235; 86430

== ENCOUNTER 2018-10-24 14:03 | Emergency (ER) | payer MEDICARE, MEDICAID ==
[2018-10-24] MEDS ORDERED: DIPHENHYDRAMINE HCL 50 MG CAPSULE PO ONE (14:29)
[2018-10-24] MEDS ORDERED: FAMOTIDINE 20 MG TABLET PO ONE (14:29)
[2018-10-24] MEDS ORDERED: DEXAMETHASONE SOD PHOS INJ 10 MG/1 ML VIAL IM ONE (14:29)
--- NOTE | 2018-10-24 14:29 | ER Document Report ---
ED Medical Screen (RME) - General Chief Complaint: Bee Sting Stated Complaint: BEE STING Time Seen by Provider: 10/24/18 14:24 Primary Care Provider: BROCK SEWELL MD [Primary Care Provider] - Follow up as needed Mode of Arrival: Ambulatory Information source: Patient Notes: 53-year-old female presented to ED they got stung by at least 9 yellow jackets about half an hour ago. She states she does not know if she is allergic to bees or not. She states that bee stings is very painful. She states that she is having to work for breathing. He states it feels like her lip and tongue are swollen but they do not appear swelling at this time. We will treat with steroids Pepcid and Benadryl. Patient is alert oriented respirations regular and unlabored at this time. I have greeted and performed a rapid initial assessment of this patient. A comprehensive ED assessment and evaluation of the patient, analysis of test results and completion of medical decision making process will be conducted by an additional ED providers. TRAVEL OUTSIDE OF THE [place] IN LAST 30 DAYS: No - Related Data Allergies/Adverse Reactions: acetaminophen [From Tylenol] Allergy (Severe, Verified 10/24/18 14:19) Anaphylaxis levofloxacin [From Levaquin] Allergy (Severe, Verified 10/24/18 14:19) Anaphylaxis lisinopril [Lisinopril] Allergy (Severe, Verified 10/24/18 14:19) sob, throat swelling rosuvastatin [From Crestor] Allergy (Mild, Verified 10/24/18 14:19) Hives atorvastatin calcium [From Lipitor] Adverse Reaction (Severe, Verified 10/24/18 14:19) muscle cramps adhesive tape [Adhesive Tape] Adverse Reaction (Intermediate, Verified 10/24/18 14:19) Hives Past Medical History - Past Medical History Cardiac Medical History: Reports: Hx Congestive Heart Failure, Hx Coronary Artery Disease - ANGINA, stent, Hx Heart Attack - 2011, Hx Hypercholesterolemia Denies: Hx Atrial Fibrillation, Hx Hypertension - on meds, Hx Peripheral Vascular Disease, Hx Pulmonary Embolism, Hx Heart Murmur Pulmonary Medical History: Reports: Hx Asthma, Hx Bronchitis - hx of, Hx COPD, Hx Respiratory Failure Denies: Hx Sleep Apnea, Hx Tuberculosis Neurological Medical History: Denies: Hx Cerebrovascular Accident, Hx Seizures Endocrine Medical History: Denies: Hx Graves' Disease, Hx Hyperthyroidism, Hx Hypothyroidism Renal/ Medical History: Reports: Hx Kidney Stones, Hx Ovarian Cysts. Denies: Hx End Stage Renal Disease, Hx Peritoneal Dialysis, Hx Pelvic Inflammatory Disease Malignancy Medical History: Denies: Hx Breast Cancer, Hx Cervical Cancer, Hx Leukemia, Hx Lung Cancer, Hx Ovarian Cancer GI Medical History: Denies: Hx Crohn's Disease, Hx Gastroesophageal Reflux Disease, Hx Hiatal Hernia, Hx Irritable Bowel, Hx Liver Failure, Hx Pancreatitis, Hx Ulcer Musculoskeltal Medical History: Reports Hx Arthritis, Denies Hx Fibromyalgia, Denies Hx Multiple Sclerosis, Denies Hx Muscular Dystrophy, Denies Hx Systemic Lupus Erythematosus Psychiatric Medical History: Denies: Hx Bipolar Disorder, Hx Dementia, Hx Depression, Hx Post Traumatic St ress Disorder, Hx Schizophrenia Traumatic Medical History: Reports: Hx Fractures - right ankle fracture 1990 Infectious Medical History: Denies: Hx HIV Past Surgical History: Reports: Hx Cardiac Catheterization - with stents, Hx Cardiac Surgery - cardiac stent, Hx Section, Hx Hysterectomy, Hx Pacemaker, Hx Tonsillectomy. Denies: Hx Appendectomy, Hx Bowel Surgery, Hx Cholecystectomy, Hx Colostomy, Hx Coronary Artery Bypass Graft, Hx Gastric Bypass Surgery, Hx Herniorrhaphy, Hx Mastectomy, Hx Tubal Ligation - Immunizations Immunizations up to date: Yes Hx Diphtheria, Pertussis, Tetanus Vaccination: Yes History of Influenza Vaccine for 11/2016 - 04/2017 Season: No Physical Exam - Vital signs Vitals: Temp Pulse Resp BP Pulse Ox 98.9 F 99 18 126/74 H 94 10/24/18 14:14 10/24/18 14:14 10/24/18 14:14 10/24/18 14:14 10/24/18 14:14 Course - Vital Signs Vital signs: Temp Pulse Resp BP Pulse Ox 98.9 F 99 18 126/74 H 94 10/24/18 14:14 10/24/18 14:14 10/24/18 14:14 10/24/18 14:14 10/24/18 14:14 Doctor's Discharge - Discharge Referrals: BROCK SEWELL MD [Primary Care Provider] - Follow up as needed
[2018-10-24] MEDS ORDERED: EPINEPHRINE INJ/PF 1 MG/1 ML AMPULE IM ONE (15:25)
--- NOTE | 2018-10-24 15:32 | ER Document Report ---
ED General - General Chief Complaint: Bee Sting Stated Complaint: BEE STING Time Seen by Provider: 10/24/18 14:24 Primary Care Provider: BROCK SEWELL MD [ACTIVE STAFF] - Follow up as needed Mode of Arrival: Ambulatory Notes: 53-year-old female presents the emergency department stating that she was stung by at least 9 yellow jackets just prior to arrival. Some of the stings were to the right side of her leg and her right hand. Denies any stings to her face. States she feels like her lips and tongue are swelling. Admits difficulty swallowing but denies shortness of breath. States that her eyelids feel heavy. This is also after she took 25 mg of Bentyl under drill at home. Denies ever having been stung before in her life. TRAVEL OUTSIDE OF THE [place] IN LAST 30 DAYS: No - Related Data Allergies/Adverse Reactions: acetaminophen [From Tylenol] Allergy (Severe, Verified 10/24/18 14:19) Anaphylaxis levofloxacin [From Levaquin] Allergy (Severe, Verified 10/24/18 14:19) Anaphylaxis lisinopril [Lisinopril] Allergy (Severe, Verified 10/24/18 14:19) sob, throat swelling rosuvastatin [From Crestor] Allergy (Mild, Verified 10/24/18 14:19) Hives atorvastatin calcium [From Lipitor] Adverse Reaction (Severe, Verified 10/24/18 14:19) muscle cramps adhesive tape [Adhesive Tape] Adverse Reaction (Intermediate, Verified 10/24/18 14:19) Hives Past Medical History - General Information source: Patient - Social History Smoking Status: Former Smoker - Continues to use E cigarettes. Frequency of alcohol use: None Drug Abuse: None Family History: CAD, CVA, DM, Malignancy Patient has suicidal ideation: No Patient has homicidal ideation: No - Past Medical History Cardiac Medical History: Reports: Hx Congestive Heart Failure, Hx Coronary Artery Disease - ANGINA, stent, Hx Heart Attack - 2011, Hx Hypercholesterolemia Denies: Hx Atrial Fibrillation, Hx Hypertension - on meds, Hx Peripheral Vascular Disease, Hx Pulmonary Embolism, Hx Heart Murmur Pulmonary Medical History: Reports: Hx Asthma, Hx Bronchitis - hx of, Hx COPD, Hx Respiratory Failure Denies: Hx Sleep Apnea, Hx Tuberculosis Neurological Medical History: Denies: Hx Cerebrovascular Accident, Hx Seizures Endocrine Medical History: Denies: Hx Graves' Disease, Hx Hyperthyroidism, Hx Hypothyroidism Renal/ Medical History: Reports: Hx Kidney Stones, Hx Ovarian Cysts. Denies: Hx End Stage Renal Disease, Hx Peritoneal Dialysis, Hx Pelvic Inflammatory Disease Malignancy Medical History: Denies: Hx Breast Cancer, Hx Cervical Cancer, Hx Leukemia, Hx Lung Cancer, Hx Ovarian Cancer GI Medical History: Denies: Hx Crohn's Disease, Hx Gastroesophageal Reflux Disease, Hx Hiatal Hernia, Hx Irritable Bowel, Hx Liver Failure, Hx Pancreatitis, Hx Ulcer Musculoskeletal Medical History: Reports Hx Arthritis, Denies Hx Fibromyalgia, Denies Hx Multiple Sclerosis, Denies Hx Muscular Dystrophy, Denies Hx Systemic Lupus Erythematosus Psychiatric Medical History: Denies: Hx Bipolar Disorder, Hx Dementia, Hx Depression, Hx Post Traumatic Stress Disorder, Hx Schizophrenia Traumatic Medical History: Reports: Hx Fractures - right ankle fracture 1990 Infectious Medical History: Denies: Hx HIV Past Surgical History: Reports: Hx Cardiac Catheterization - with stents, Hx Cardiac Surgery - cardiac stent, Hx Section, Hx Hysterectomy, Hx Pacemaker, Hx Tonsillectomy. Denies: Hx Appendectomy, Hx Bowel Surgery, Hx Cholecystectomy, Hx Colostomy, Hx Coronary Artery Bypass Graft, Hx Gastric Bypass Surgery, Hx Herniorrhaphy, Hx Mastectomy, Hx Tubal Ligation - Immunizations Immunizations up to date: Yes Hx Diphtheria, Pertussis, Tetanus Vaccination: Yes Hx Pneumococcal Vaccination: 02/02/14 Review of Systems - Review of Systems Constitutional: See HPI - Tired. EENT: See HPI - Lip and tongue swelling. Cardiovascular: No symptoms reported. denies: Chest pain Respiratory: Short of breath - Patient states she is short of breath at baseline with her COPD. Is not certain whether or not it is a worse. Gastrointestinal: See HPI Skin: See HPI - Pain and swelling to her right hand and right leg where she was stung. -: Yes All other systems reviewed and negative Physical Exam - Vital signs Vitals: Temp Pulse Resp BP Pulse Ox 98.9 F 99 18 126/74 H 94 10/24/18 14:14 10/24/18 14:14 10/24/18 14:14 10/24/18 14:14 10/24/18 14:14 Interpretation: Normal - Notes Notes: GENERAL: Alert, interacts well. Appears mildly anxious, but no acute distress. HEAD: Normocephalic, atraumatic EYES: Pupils equal, round and reactive to light, extraocular movements intact. ENT: Oral mucosa moist, tongue midline. No swelling of the lips or tongue. No respiratory distress. NECK: Full range of motion, supple, trachea midline. LUNGS: Clear to auscultation bilaterally, no wheezes, rales or rhonchi, no respiratory distress. HEART: Regular rate and rhythm, no murmurs, gallops, rubs. ABDOMEN: Soft, nontender, nondistended, bowel sounds present in all 4 quadrants. EXTREMITIES: Moves all 4 extremities spontaneously, no edema, radial and dorsalis pedis pulses 2/4 bilaterally. No cyanosis. NEUROLOGICAL: Alert and oriented x3, normal speech. PSYCH: Normal mood, normal affect. SKIN: Warm, Dry, puncture wounds to the right hand, right upper back, right legs consistent with stings, minimal surrounding erythema, no fluctuance. No hives noted anywhere. Course - Re-evaluation Re-evalutation: 10/24/18 15:34 Patient was already given Decadron, Benadryl and Pepcid. Given the fact that she states she is having trouble swallowing we will go ahead and give her some epinephrine and observe her on the monitor. Currently no other signs of anaphylaxis. 10/24/18 18:08 Patient has been rechecked, feels like all of her lip and tongue swelling has resolved and that she is no longer having any difficulty swallowing after receiving the epinephrine. Patient will be observed for 3 hours afterwards and then discharged home with repeat dose of Decadron, EpiPen and Pepcid and Benadryl. Patient is agreeable to this plan. 10/24/18 18:59 Rechecked again, still feeling well, no recurrence of symptoms. Discharged home. - Vital Signs Vital signs: Temp Pulse Resp BP Pulse Ox 98.9 F 99 18 126/74 H 94 10/24/18 14:14 10/24/18 14:14 10/24/18 14:14 10/24/18 14:14 10/24/18 14:14 - EKG Interpretation by Me Additional EKG results interpreted by me: 10/24/18 15:46 EKG shows sinus rhythm rate of 71, normal axis, poor R wave progression, T wave inversions in V4 and V5 which are unchanged from prior EKG on 02/17/2017, no ST segment elevations or depressions per my interpretation. Critical Care Note - Critical Care Note Total time excluding time spent on procedures (mins): 35 Discharge - Discharge Clinical Impression: Yellow jacket sting allergy Yellow jacket sting Qualifiers: Encounter type: initial encounter Injury intent: accidental or unintentional Qualified Code(s): T63.461A - Toxic effect of venom of wasps, accidental (unintentional), initial encounter Condition: Stable Disposition: HOME, SELF-CARE Additional Instructions: Insect Sting You've been stung by an insect. The venom can cause pain, redness, and swelling. Right after the sting, we sometimes use adrenaline to reduce the reaction to the venom. This also stops any allergic reaction. You should apply cold compresses, rest and elevate the affected part, and take antihistamines. You may take Benadryl [id number] 25 to 50 mg every 6 hours as needed for itching. You may also take Pepcid [id number] 1 tab every 12 hours as needed for itching. A more severe, itchy red swelling sometimes develops the next day. This is a local allergic reaction to the venom. This local allergy isn't dangerous. We treat it with cortisone-type medicine and antihistamines. Sometimes we use antibiotics if we're worried about infection. If you develop a fever, chills, a red streak, or swollen glands in the area of the bite, infection may be starting. Return at once. Insect stings from the bee and hornet family may cause a severe allergic reaction. Symptoms include hoarseness, shortness of breath, general redness of the skin, general itching, or lightheadedness. If any of these symptoms occur, you'll be treated with adrenalin and cortisone-like steroids. You should carry an "Anaphylaxis Kit" with you in the summer months so you can administer these medications to yourself before getting emergency medical care. Prescriptions: Dexamethasone 12 mg PO ONCE PRN #2 tablet PRN Reason: Epinephrine [Epipen] 0.3 mg IJ PRN PRN #1 auto.injct PRN Reason: allergic reaction Referrals: BROCK SEWELL MD [ACTIVE STAFF] - Follow up as needed
--- NOTE | 2018-10-24 16:03 | RADIOLOGY REPORT (SQ) ---
EXAM DESCRIPTION: CHEST SINGLE VIEW COMPLETED DATE/TIME: 10/24/2018 3:49 pm REASON FOR STUDY: yellow jacket stings, difficulty swallowing COMPARISON: 05/28/2018 EXAM PARAMETERS: NUMBER OF VIEWS: One view. TECHNIQUE: Single frontal radiographic view of the chest acquired. RADIATION DOSE: NA LIMITATIONS: None. FINDINGS: LUNGS AND PLEURA: No opacities, masses or pneumothorax. No pleural effusion. MEDIASTINUM AND HILAR STRUCTURES: No masses. Contour normal. HEART AND VASCULAR STRUCTURES: Cardiomegaly. Normal vasculature. BONES: No acute findings. HARDWARE: Stable position of defibrillator. OTHER: No other significant finding. IMPRESSION: NO ACUTE RADIOGRAPHIC FINDING IN THE CHEST. TECHNICAL DOCUMENTATION: JOB ID: [id number] [employer]- All Rights Reserved Reading location - IP/workstation name: [email or web address]
[2018-10-24] MEDS ORDERED: NAPROXEN 250 MG TABLET PO ONE (17:36)
--- NOTE | 2018-10-24 18:38 | EKG REPORT ---
SEVERITY:- ABNORMAL ECG - SINUS RHYTHM BORDERLINE R WAVE PROGRESSION, ANTERIOR LEADS NONSPECIFIC T ABNORMALITIES, ANT-LAT LEADS : Confirmed by: Jefry Feng 24-Oct-2018 18:38:14
[2018-10-24 19:10] VITALS: BP 139/83
== END 2018-10-24 19:10 | disposition home or self-care (01) ==
LOC: ER 14:03
DX: T63.461A Toxic effect of venom of wasps, accidental (unintentional), initial encounter (principal); R22.0 Localized swelling, mass and lump, head; R13.10 Dysphagia, unspecified; Y92.9 Unspecified place or not applicable; Z87.891 Personal history of nicotine dependence; I50.9 Heart failure, unspecified; I25.10 Atherosclerotic heart disease of native coronary artery without angina pectoris; I25.2 Old myocardial infarction; J44.9 Chronic obstructive pulmonary disease, unspecified
CPT/HCPCS: 93005; 71045; 93010; A9270 ×3; J0171; J1100; 96372; 99285

== ENCOUNTER 2018-11-06 11:55 | Observation (INO) | payer MEDICARE, MEDICAID ==
--- NOTE | 2018-11-06 12:04 | ER Document Report ---
ED Medical Screen (RME) - General Stated Complaint: BLOOD PRESSURE PROBLEM Time Seen by Provider: 11/06/18 11:57 Primary Care Provider: JIMMY CORONA MD [Primary Care Provider] - Follow up as needed Mode of Arrival: Wheelchair Information source: Patient Notes: 53-year-old female with history of cardiac disease and pacemaker presents today with reports of high blood pressure. Reports she took her blood pressure twice today it was very high 151/101. Also complains of a headache she took naproxen did not relieve the headache. Complains of left side face feels kind of numb with difficulty speaking. Report the symptoms started when she woke up at approximately 0600 this morning. Also reports chest pain shortness of breath last night. Reports she took her angina pill without relief of symptoms. Patient has extensive cardiac history and also reports a stroke in 2011. I have greeted and performed a rapid initial assessment of this patient. A comprehensive ED assessment and evaluation of the patient, analysis of test results and completion of the medical decision making process will be conducted by additional ED providers. Dictation of this chart was performed using voice recognition software; therefore, there may be some unintended grammatical errors. TRAVEL OUTSIDE OF THE [place] IN LAST 30 DAYS: No - Related Data Allergies/Adverse Reactions: acetaminophen [From Tylenol] Allergy (Severe, Verified 10/24/18 14:19) Anaphylaxis levofloxacin [From Levaquin] Allergy (Severe, Verified 10/24/18 14:19) Anaphylaxis lisinopril [Lisinopril] Allergy (Severe, Verified 10/24/18 14:19) sob, throat swelling rosuvastatin [From Crestor] Allergy (Mild, Verified 10/24/18 14:19) Hives atorvastatin calcium [From Lipitor] Adverse Reaction (Severe, Verified 10/24/18 14:19) muscle cramps adhesive tape [Adhesive Tape] Adverse Reaction (Intermediate, Verified 10/24/18 14:19) Hives Past Medical History - Past Medical History Cardiac Medical History: Reports: Hx Congestive Heart Failure, Hx Coronary Artery Disease - ANGINA, stent, Hx Heart Attack - 2012, Hx Hypercholesterolemia Denies: Hx Atrial Fibrillation, Hx Hypertension - on meds, Hx Peripheral Vascular Disease, Hx Pulmonary Embolism, Hx Heart Murmur Pulmonary Medical History: Reports: Hx Asthma, Hx Bronchitis - hx of, Hx COPD, Hx Respiratory Failure Denies: Hx Sleep Apnea, Hx Tuberculosis Neurological Medical History: Denies: Hx Cerebrovascular Accident, Hx Seizures Endocrine Medical History: Denies: Hx Graves' Disease, Hx Hyperthyroidism, Hx Hypothyroidism Renal/ Medical History: Reports: Hx Kidney Stones, Hx Ovarian Cysts. Denies: Hx End Stage Renal Disease, Hx Peritoneal Dialysis, Hx Pelvic Inflammatory Disease Malignancy Medical History: Denies: Hx Breast Cancer, Hx Cervical Cancer, Hx Leukemia, Hx Lung Cancer, Hx Ovarian Cancer GI Medical History: Denies: Hx Crohn's Disease, Hx Gastroesophageal Reflux Dise ase, Hx Hiatal Hernia, Hx Irritable Bowel, Hx Liver Failure, Hx Pancreatitis, Hx Ulcer Musculoskeltal Medical History: Reports Hx Arthritis, Denies Hx Fibromyalgia, Denies Hx Multiple Sclerosis, Denies Hx Muscular Dystrophy, Denies Hx Systemic Lupus Erythematosus Psychiatric Medical History: Denies: Hx Bipolar Disorder, Hx Dementia, Hx Depression, Hx Post Traumatic Stress Disorder, Hx Schizophrenia Traumatic Medical History: Reports: Hx Fractures - right ankle fracture 1990 Infectious Medical History: Denies: Hx HIV Past Surgical History: Reports: Hx Cardiac Catheterization - with stents, Hx Cardiac Surgery - cardiac stent, Hx Section, Hx Hysterectomy, Hx Pacemaker, Hx Tonsillectomy. Denies: Hx Appendectomy, Hx Bowel Surgery, Hx Cholecystectomy, Hx Colostomy, Hx Coronary Artery Bypass Graft, Hx Gastric Bypass Surgery, Hx Herniorrhaphy, Hx Mastectomy, Hx Tubal Ligation - Immunizations Immunizations up to date: Yes Hx Diphtheria, Pertussis, Tetanus Vaccination: Yes History of Influenza Vaccine for 11/2016 - 04/2017 Season: No Physical Exam - Vital signs Vitals: Temp Pulse Resp BP Pulse Ox 97.6 F 104 H 16 129/88 H 97 11/06/18 12:02 11/06/18 12:02 11/06/18 12:02 11/06/18 12:02 11/06/18 12:02 Course - Vital Signs Vital signs: Temp Pulse Resp BP Pulse Ox 97.6 F 104 H 16 129/88 H 97 11/06/18 12:02 11/06/18 12:02 11/06/18 12:02 11/06/18 12:02 11/06/18 12:02 Doctor's Discharge - Discharge Referrals: JIMMY CORONA MD [Primary Care Provider] - Follow up as needed
[2018-11-06 13:00] LABS: ABSOLUTE BASOPHILS # (AUTO) 0.1 10^3/uL (0.0-0.2); ABSOLUTE EOSINOPHILS # (AUTO) 0.2 10^3/uL (0.0-0.6); ABSOLUTE LYMPHOCYTES (AUTO) 1.2 10^3/uL (0.5-4.7); ABSOLUTE MONOCYTES (AUTO) 0.5 10^3/uL (0.1-1.4); ABSOLUTE NEUT (AUTO) 7.9 10^3/uL (1.7-8.2); BASOPHILS % (AUTO) 0.7 % (0-2); EOSINOPHILS % (AUTO) 1.6 % (0-6); HEMATOCRIT 42.6 % (36.0-47.0); HEMOGLOBIN 14.3 g/dL (12.0-15.5); LYMPHOCYTES % (AUTO) 11.9 % (13-45); MEAN CORPUSCULAR HEMOGLOBIN 28.5 pg (27.0-33.4); MEAN CORPUSCULAR HGB CONC 33.7 g/dL (32.0-36.0); MEAN CORPUSCULAR VOLUME 85 fl (80-97); MONOCYTES % (AUTO) 5.1 % (3-13); PLATELET COUNT 103 10^3/uL (150-450); RED BLOOD COUNT 5.03 10^6/uL (3.72-5.28); RED CELL DISTRIBUTION WIDTH 13.7 % (11.5-14.0); SEGMENTED NEUTROPHILS % (AUTO) 80.7 % (42-78); TOTAL CELLS COUNTED % (AUTO) 100 %; WHITE BLOOD COUNT 9.8 10^3/uL (4.0-10.5)
[2018-11-06 13:04] LABS: INTERNATIONAL RATION (INR) 1.03; PROTHROMBIN TIME 13.5 SEC (11.4-15.4)
[2018-11-06 13:05] LABS: PARTIAL THROMBOPLASTIN TIME 28.3 SEC (23.5-35.8)
--- NOTE | 2018-11-06 13:11 | RADIOLOGY REPORT (SQ) ---
EXAM DESCRIPTION: CHEST SINGLE VIEW COMPLETED DATE/TIME: 11/06/2018 1:02 pm REASON FOR STUDY: cp COMPARISON: Chest films 10/24/2018, 05/28/2018, 05/25/2018 CT chest 11/13/2017 EXAM PARAMETERS: NUMBER OF VIEWS: One view. TECHNIQUE: Single frontal radiographic view of the chest acquired. RADIATION DOSE: NA LIMITATIONS: None. FINDINGS: LUNGS AND PLEURA: No opacities, masses or pneumothorax. No pleural effusion. MEDIASTINUM AND HILAR STRUCTURES: No masses. Contour normal. HEART AND VASCULAR STRUCTURES: Heart normal in size. Normal vasculature. BONES: No acute findings. HARDWARE: Left-sided pacemaker OTHER: No other significant finding. IMPRESSION: NO ACUTE RADIOGRAPHIC FINDING IN THE CHEST. TECHNICAL DOCUMENTATION: JOB ID: [id number] [employer]- All Rights Reserved Reading location - IP/workstation name: [email or web address]
--- NOTE | 2018-11-06 13:16 | ER Document Report ---
ED General - General Chief Complaint: High Blood Pressure Stated Complaint: BLOOD PRESSURE PROBLEM Time Seen by Provider: 11/06/18 11:57 Mode of Arrival: Wheelchair TRAVEL OUTSIDE OF THE [place] IN LAST 30 DAYS: No - HPI Context: 53-year-old female with a history of DE, CVA and a pacemaker-like device presents to the emergency room with complaints of hypertension, numbness and ti ngling to left side of face, slurred speech, weakness, headache that started approximately 6 about this morning. Patient states that her blood pressure is elevated 150/110. Patient reports she did have left sided chest pain last night that lasted for a couple of hours. Denies any nausea vomiting, fevers, chills, abdominal pain, bowel or bladder dysfunction, rashes. Denies any new medications foods or travel. - Related Data Allergies/Adverse Reactions: acetaminophen [From Tylenol] Allergy (Severe, Verified 10/24/18 14:19) Anaphylaxis levofloxacin [From Levaquin] Allergy (Severe, Verified 10/24/18 14:19) Anaphylaxis lisinopril [Lisinopril] Allergy (Severe, Verified 10/24/18 14:19) sob, throat swelling rosuvastatin [From Crestor] Allergy (Mild, Verified 10/24/18 14:19) Hives atorvastatin calcium [From Lipitor] Adverse Reaction (Severe, Verified 10/24/18 14:19) muscle cramps adhesive tape [Adhesive Tape] Adverse Reaction (Intermediate, Verified 10/24/18 14:19) Hives Past Medical History - General Information source: Patient - Social History Smoking Status: Current Every Day Smoker Family History: CAD, CVA, DM, Malignancy Patient has suicidal ideation: No Patient has homicidal ideation: No - Past Medical History Cardiac Medical History: Reports: Hx Congestive Heart Failure, Hx Coronary Artery Disease - ANGINA, stent, Hx Heart Attack - 2011, Hx Hypercholesterolemia Denies: Hx Atrial Fibrillation, Hx Hypertension - on meds, Hx Peripheral Vascular Disease, Hx Pulmonary Embolism, Hx Heart Murmur Pulmonary Medical History: Reports: Hx Asthma, Hx Bronchitis - hx of, Hx COPD, Hx Respiratory Failure Denies: Hx Sleep Apnea, Hx Tuberculosis Neurological Medical History: Denies: Hx Cerebrovascular Accident, Hx Seizures Endocrine Medical History: Denies: Hx Graves' Disease, Hx Hyperthyroidism, Hx Hypothyroidism Renal/ Medical History: Reports: Hx Kidney Stones, Hx Ovarian Cysts. Denies: Hx End Stage Renal Disease, Hx Peritoneal Dialysis, Hx Pelvic Inflammatory Disease Malignancy Medical History: Denies: Hx Breast Cancer, Hx Cervical Cancer, Hx Leukemia, Hx Lung Cancer, Hx Ovarian Cancer GI Medical History: Denies: Hx Crohn's Disease, Hx Gastroesophageal Reflux Disease, Hx Hiatal Hernia, Hx Irritable Bowel, Hx Liver Failure, Hx Pancreatitis, Hx Ulcer Musculoskeletal Medical History: Reports Hx Arthritis, Denies Hx Fibromyalgia, Denies Hx Multiple Sclerosis, Denies Hx Muscular Dystrophy, Denies Hx Systemic Lupus Erythematosus Psychiatric Medical History: Denies: Hx Bipolar Disorder, Hx Dementia, Hx Depression, Hx Post Traumatic Stress Disorder, Hx Schizophrenia Traumatic Medical History: Reports: Hx Fractures - right ankle fracture 1990 Infectious Medical History: Denies: Hx HIV Past Surgical History: Reports: Hx Cardiac Catheterization - with stents, Hx Cardiac Surgery - cardiac stent, Hx Section, Hx Hysterectomy, Hx Pacemaker, Hx Tonsillectomy. Denies: Hx Appendectomy, Hx Bowel Surgery, Hx Cholecystectomy, Hx Colostomy, Hx Coronary Artery Bypass Graft, Hx Gastric Bypass Surgery, Hx Herniorrhaphy, Hx Mastectomy, Hx Tubal Ligation - Immunizations Immunizations up to date: Yes Hx Diphtheria, Pertussis, Tetanus Vaccination: Yes Hx Pneumococcal Vaccination: 02/02/14 Review of Systems - Review of Systems Constitutional: No symptoms reported EENT: No symptoms reported Cardiovascular: No symptoms reported Respiratory: No symptoms reported Gastrointestinal: No symptoms reported Genitourinary: No symptoms reported Female Genitourinary: No symptoms reported Musculoskeletal: No symptoms reported Skin: No symptoms reported Hematologic/Lymphatic: No symptoms reported Neurological/Psychological: See HPI Physical Exam - Vital signs Vitals: Temp Pulse Resp BP Pulse Ox 97.6 F 104 H 16 129/88 H 97 11/06/18 12:02 11/06/18 12:02 11/06/18 12:02 11/06/18 12:02 11/06/18 12:02 - Notes Notes: PHYSICAL EXAMINATION: GENERAL: Well-appearing, well-nourished and in no acute distress. HEAD: Atraumatic, normocephalic. EYES: Pupils equal round and reactive to light, extraocular movements intact, conjunctiva are normal. ENT: Nares patent, oropharynx clear without exudates. Moist mucous membranes. NECK: Normal range of motion, supple without lymphadenopathy LUNGS: Breath sounds clear to auscultation bilaterally and equal. No wheezes rales or rhonchi. HEART: Regular rate and rhythm without murmurs ABDOMEN: Soft, nontender, nondistended abdomen. No guarding, no rebound. No masses appreciated. Female : deferred Musculoskeletal: Normal range of motion, no pitting or edema. No cyanosis. NEUROLOGICAL: Cranial nerves grossly intact. Normal speech, normal gait. Normal sensory, motor exams. PERRLA, EOMI. Full motor and sensory function throughout. Receiver + 2 equal bilaterally in BUE. Tongue midline. No pronator drift. No ataxia. Neck with APROM. Raises eyebrows. Strength is 5 out of 5 in bilateral upper and lower extremities equally.Speaks in full sentences. No weakness on one side. Romberg gait steady able to walk straight line. Able to recall 5 objects. PSYCH: Normal mood, normal affect. SKIN: Warm, Dry, normal turgor, no rashes or lesions noted. Course - Re-evaluation Re-evalutation: 11/06/18 18:09 53-year-old female afebrile vitals stable and in no distress. CBC negative for leukocytosis or anemia, CMP negative for hepatic or renal dysfunction, chest x- ray unremarkable, EKG negative for any acute STEMI, no ST segment elevations, initial troponin negative, BNP 640, no CHF, due to patient having complaints of shortness of breath and dyspnea, CTA ordered. Nurses unable to obtain a 20- gauge at the AC, will obtain a VQ scan. VQ scan negative for any PE. Symptoms of left-sided facial numbness tingling, slurred speech, hypertension resolved. Consulted with Dr. Lundy, covering Dr. Coker, for TIA-like symptoms. Dr. Lundy would like a CTA of head prior to patient being brought up to floor. Pt cannot have an MRI due to having stents in her heart. Will admit to stepdown ICU. Patient was agreeable with this plan of care for TIA observation. - Vital Signs Vital signs: Temp Pulse Resp BP Pulse Ox 97.6 F 89 23 H 108/79 98 11/06/18 12:02 11/06/18 12:46 11/06/18 17:00 11/06/18 16:04 11/06/18 17:00 - Laboratory Result Diagrams: 11/06/18 12:53 11/06/18 12:53 Laboratory results interpreted by me: 11/06/18 11/06/18 12:53 12:53 Plt Count 103 L Lymph % (Auto) 11.9 L Seg Neutrophils % 80.7 H Chloride 109 H Total Protein 6.2 L Discharge - Discharge Clinical Impression: TIA (transient ischemic attack) Condition: Stable Disposition: ADMITTED OBSERVATION Admitting Provider: John Paul Unit Admitted: [facility]
[2018-11-06 13:19] LABS: ALBUMIN 3.6 g/dL (3.5-5.0); ALKALINE PHOSPHATASE 100 U/L (38-126); ANION GAP 7 (5-19); ASPARTATE AMINO TRANSFERASE 32 U/L (14-36); BILIRUBIN,DIRECT 0.1 mg/dL (0.0-0.4); BILIRUBIN,TOTAL 0.5 mg/dL (0.2-1.3); BLOOD UREA NITROGEN 9 mg/dL (7-20); CALCIUM 8.9 mg/dL (8.4-10.2); CARBON DIOXIDE 22 mmol/L (22-30); CHLORIDE 109 mmol/L (98-107); CREATINE KINASE 77 U/L (30-135); GLUCOSE 98 mg/dL (75-110); POTASSIUM 4.4 mmol/L (3.6-5.0); TOTAL PROTEIN 6.2 g/dL (6.3-8.2)
[2018-11-06 13:29] LABS: CREATINE KINASE MB 1.65 ng/mL (<4.55)
[2018-11-06 13:31] LABS: TROPONIN I < 0.012 ng/mL
--- NOTE | 2018-11-06 13:42 | RADIOLOGY REPORT (SQ) ---
EXAM DESCRIPTION: CT HEAD WITHOUT COMPLETED DATE/TIME: 11/06/2018 1:20 pm REASON FOR STUDY: DIFFICULTY SPEAKING/LEFT FACIAL NUMBNESS/LAMBERT COMPARISON: 06/02/2017. TECHNIQUE: Axial images acquired through the brain without intravenous contrast. Images reviewed wi th bone, brain and subdural windows. Images stored on PACS. All CT scanners at this facility use dose modulation, iterative reconstruction, and/or weight based d osing when appropriate to reduce radiation dose to as low as reasonably achievable (ALARA). [facility]: Dose Right [facility]: CareDose [facility]: Dose Right [facility]: Teradose 4D [facility]: [employer] RADIATION DOSE: CT Rad equipment meets quality standard of care and radiation dose reduction techniq ues were employed. CTDIvol: 53.2 mGy. DLP: 991 mGy-cm. mGy. LIMITATIONS: None. FINDINGS: VENTRICLES: Normal size and contour. CEREBRUM: No masses. No hemorrhage. No midline shift. No evidence for acute infarction. Normal gra y/white matter differentiation. No areas of low density in the white matter. CEREBELLUM: No masses. No hemorrhage. No alteration of density. No evidence for acute infarction. EXTRAAXIAL SPACES: No fluid collections. No masses. ORBITS AND GLOBE: No intra- or extraconal masses. Normal contour of globe without masses. CALVARIUM: No fracture. PARANASAL SINUSES: No fluid or mucosal thickening. SOFT TISSUES: No mass or hematoma. OTHER: No other significant finding. IMPRESSION: NORMAL BRAIN CT WITHOUT CONTRAST. EVIDENCE OF ACUTE STROKE: NO. COMMENT: Quality ID # [id number]: Final reports with documentation of one or more dose reduction techniques (e.g., Automated exposure control, adjustment of the mA and/or kV according to patient size, use of iterative reconstruction technique) TECHNICAL DOCUMENTATION: JOB ID: [id number] [employer]- All Rights Reserved Reading location - IP/workstation name: [email or web address]
--- NOTE | 2018-11-06 16:25 | RADIOLOGY REPORT (SQ) ---
EXAM DESCRIPTION: NM LUNG VENT/PERF SCAN COMPLETED DATE/TIME: 11/06/2018 4:14 pm REASON FOR STUDY: SOB, CP COMPARISON: Earlier radiograph RADIONUCLIDE AND DOSE: 5.22 millicuries TC-99m MAA Intravenous 29.0 millicuries TC-99m DTPA Inhaled aerosol TECHNIQUE: Eight views of the lungs acquired post ventilation of DTPA aerosol. Eight matching views of the lungs acquired following injection of MAA. LIMITATIONS: None. FINDINGS: VENTILATION: Centralized heterogeneous clumping of radiotracer on ventilation scan. PERFUSION: Perfusion images with generally homogenous activity. No significant segmental defects. N o ventilation-perfusion mismatches. OTHER: No other significant finding. IMPRESSION: No ventilation-perfusion mismatches.Perfusion images with generally homogenous activity. Centralized heterogeneous clumping of radiotracer on ventilation scan. TECHNICAL DOCUMENTATION: JOB ID: [id number] [id number] 2010 [employer]- All Rights Reserved Reading location - IP/workstation name: [employer]
[2018-11-06] MEDS ORDERED: MECLIZINE HCL 25 MG TABLET PO ONE (17:15)
--- NOTE | 2018-11-06 19:41 | PDOC H&P ---
History of Present Illness Admission Date/PCP: 11/06/18 18:24 JIMMY CORONA MD Patient complains of: Tingling numbness in the left side History of Present Illness: DHAVAL ROD is a 53 year old female This is a 53-year-old female's with a history of the COPD history of the hypertension's hyperlipidemia history of the cardiomyopathy status post defibrillator type placement by Dr. Lazo at [place] and multiple other comorbidity with a history of the previous strokes presenting the emergency department with this complaining of left-sided to face tingling numbness and elevated blood pressures headache and not feeling well Patient's denied any cough no congestions but patients feel like the ER is blocked and patients feel like a she drunk Is denied any alcohol intake Patient had a history of the vertigo in the past In the emergency department initial CT of the head was negative patient's blood work cardiac enzyme is all negative's Patient's symptom is pretty much all resolved Patient when I saw in the ER alert awake oriented x4 denied any weakness denied any chest pain to than any shortness of the breath Denied any tingling no numbness No facial weakness Patient had a CT angiogram was ordered but unable to get the veins but at this point patient's denied any other symptoms Patient unfortunately unable to get the MRI due to the synthetic device in the leg and also pacemaker Patients feel like she may have a vertigo because patients feel better with the meclizine We will admit the patient in the TIA protocol Past Medical History Cardiac Medical History: Reports: Congestive Heart Failure, Coronary Artery Disease - ANGINA, stent, Myocardial Infarction - 2012, Hyperlipidema Denies: Atrial Fibrillation, Hypertension - on meds, Peripheral Vascular Disease, Pulmonary Embolism, Heart Murmur Pulmonary Medical History: Reports: Asthma, Bronchitis - hx of, Chronic Obstruct lamine Pulmonary Disease (COPD), Respiratory Failure Denies: Sleep Apnea, Tuberculosis Neurological Medical History: Denies: Seizures Endocrine Medical History: Denies: Hyperthyroidism, Hypothyroidism Renal/ Medical History: Denies: End Stage Renal Disease Malignancy Medical History: Denies: Breast Cancer, Cervical Cancer, Leukemia, Lung Cancer, Ovarian Cancer GI Medical History: Denies: Crohn's Disease, Gastroesophageal Reflux Disease, Hiatal Hernia Musculoskeltal Medical History: Reports: Arthritis Denies: Fibromyalgia Psychiatric Medical History: Denies: Bipolar Disorder, Dementia, Depression, Post Traumatic Stress Disorder Hematology: Denies: Anemia, Hemophilia, Sickle Cell Disease Infectious Medical History: Denies: HIV Past Surgical History Past Surgical History: Reports: Cardiac Catheterization - with stents, Section, Hysterectomy, Pacemaker, Tonsillectomy Denies: Amputation, Appendectomy, Cholecystectomy, Colostomy, Coronary Artery Bypass Graft, Gastric Bypass Surgery, Herniorrhaphy, Mastectomy, Tubal Ligation Social History Smoking Status: Current Every Day Smoker Frequency of Alcohol Use: Occasional Hx Recreational Drug Use: No Drugs: None Hx Prescription Drug Abuse: No Family History Family History: Reviewed & Not Pertinent, CAD, CVA, DM, Malignancy Parental Family History Reviewed: Yes Children Family History Reviewed: Yes Sibling(s) Family History Reviewed.: Yes Medication/Allergy Home Medications: Albuterol Sulfate [Proair HFA Inhalation Aerosol 8.5 gm MDI] 2 puff IH Q4HP PRN 05/25/18 Aspirin [Ecotrin 81 mg EC Tablet] 81 mg PO DAILY 05/25/18 Budesonide/Formoterol Fumarate [Symbicort HFA 160-4.5 mcg Inhaler 6 gm] 2 puff IH Q12 05/25/18 Bumetanide [Bumex 1 mg Tablet] 2 mg PO Q12 05/25/18 Chlorpheniramine Maleate [Chlor-Trimeton 4 mg Tablet] 4 mg PO Q6HP PRN 05/25/18 Clopidogrel Bisulfate [Plavix 75 mg Tablet] 75 mg PO DAILY 05/25/18 Dexlansoprazole [Dexilant 60 mg Capsule] 60 mg PO DAILY 05/25/18 Doxepin HCl [Sinequan 10 mg Capsule] 10 mg PO QHS 05/25/18 Gabapentin [Neurontin] 600 mg PO Q6HP PRN 05/25/18 Levocetirizine Dihydrochloride [Xyzal] 5 mg PO QHS 05/25/18 Meclizine HCl [Antivert 25 mg Tablet] 25 mg PO Q8HP PRN 05/25/18 Metoprolol Succinate [Toprol Xl 25 mg Tab.sr] 25 mg PO DAILY 05/25/18 Pilocarpine HCl [Salagen] 5 mg PO Q6 05/25/18 Pitavastatin Calcium [Livalo] 4 mg PO DAILY 05/25/18 Ranolazine [Ranexa] 2,000 mg PO DAILY 05/25/18 Roflumilast [Daliresp 500 mcg Tablet] 1,500 mcg PO DAILY 05/25/18 Tiotropium Br/Olodaterol HCl [Stiolto Respimat Inhal [place]] 1 puff IH Q12 05/25/18 Tramadol HCl [Ultram 50 mg Tablet] 50 mg PO Q6HP PRN 05/25/18 Valsartan [Diovan 40 mg Tablet] 40 mg PO DAILY 05/25/18 Dexamethasone 12 mg PO ONCE PRN #2 tablet 10/24/18 Epinephrine [Epipen] 0.3 mg IJ PRN PRN #1 auto.injct 10/24/18 Allergies/Adverse Reactions: acetaminophen [From Tylenol] Allergy (Severe, Verified 10/24/18 14:19) Anaphylaxis levofloxacin [From Levaquin] Allergy (Severe, Verified 10/24/18 14:19) Anaphylaxis lisinopril [Lisinopril] Allergy (Severe, Verified 10/24/18 14:19) sob, throat swelling rosuvastatin [From Crestor] Allergy (Mild, Verified 10/24/18 14:19) Hives atorvastatin calcium [From Lipitor] Adverse Reaction (Severe, Verified 10/24/18 14:19) muscle cramps adhesive tape [Adhesive Tape] Adverse Reaction (Intermediate, Verified 10/24/18 14:19) Hives Review of Systems Constitutional: ABSENT: chills, fever(s), headache(s), weight gain, weight loss Eyes: ABSENT: visual disturbances Ears: ABSENT: hearing changes Cardiovascular: ABSENT: chest pain, dyspnea on exertion, edema, orthropnea, palpitations Respiratory: ABSENT: cough, hemoptysis Gastrointestinal: ABSENT: abdominal pain, constipation, diarrhea, hematemesis, hematochezia, nausea, vomiting Genitourinary: ABSENT: dysuria, hematuria Musculoskeletal: ABSENT: joint swelling Integumentary: ABSENT: rash, wounds Neurological: ABSENT: abnormal gait, abnormal speech, confusion, dizziness, focal weakness, syncope Psychiatric: ABSENT: anxiety, depression, homidical ideation, suicidal ideation Endocrine: ABSENT: cold intolerance, heat intolerance, menstrual abnormalities, polydipsia, polyuria Hematologic/Lymphatic: ABSENT: easy bleeding, easy bruising, lymphadenopathy Physical Exam Vital Signs: Temp Pulse Resp BP Pulse Ox 97.6 F 88 20 108/79 96 11/06/18 12:02 11/06/18 15:00 11/06/18 19:00 11/06/18 16:04 11/06/18 19:00 Intake & Output 11/05/18 11/06/18 11/07/18 06:59 06:59 06:59 Weight 94.2 kg General appearance: PRESENT: no acute distress, well-developed, well-nourished Head exam: PRESENT: atraumatic, normocephalic Eye exam: PRESENT: conjunctiva pink, EOMI, PERRLA. ABSENT: scleral icterus Ear exam: PRESENT: normal external ear exam Mouth exam: PRESENT: moist, tongue midline Neck exam: PRESENT: full ROM. ABSENT: carotid bruit, JVD, lymphadenopathy, thyromegaly Respiratory exam: PRESENT: clear to auscultation augie Cardiovascular exam: PRESENT: RRR. ABSENT: diastolic murmur, rubs, systolic murmur Pulses: PRESENT: normal dorsalis pedis pul, +2 pedal pulses bilateral Vascular exam: PRESENT: normal capillary refill GI/Abdominal exam: PRESENT: normal bowel sounds, soft. ABSENT: distended, guarding, mass, organolmegaly, rebound, tenderness Rectal exam: PRESENT: deferred Extremities exam: ABSENT: pedal edema Musculoskeletal exam: PRESENT: ambulatory Neurological exam: PRESENT: alert, awake, oriented to person, oriented to place, oriented to time, oriented to situation, reflexes normal, CN II-XII grossly intact, normal gait. ABSENT: motor sensory deficit Psychiatric exam: PRESENT: appropriate affect, normal mood. ABSENT: homicidal ideation, suicidal ideation Skin exam: PRESENT: dry, intact, warm. ABSENT: cyanosis, rash Results Laboratory Results: 11/06/18 12:53 11/06/18 12:53 11/06/18 11/06/18 11/06/18 12:25 12:25 12:53 WBC Cancelled 9.8 RBC Cancelled 5.03 Hgb Cancelled 14.3 Hct Cancelled 42.6 MCV Cancelled 85 MCH Cancelled 28.5 MCHC Cancelled 33.7 RDW Cancelled 13.7 Plt Count Cancelled 103 L Seg Neutrophils % Cancelled 80.7 H Sodium Cancelled Potassium Cancelled Chloride Cancelled Carbon Dioxide Cancelled Anion Gap Cancelled BUN Cancelled Creatinine Cancelled Est GFR ( Amer) Cancelled Est GFR (Non-Af Amer) Cancelled Glucose Cancelled Calcium Cancelled Total Bilirubin Cancelled AST Cancelled Alkaline Phosphatase Cancelled Total Protein Cancelled Albumin Cancelled 11/06/18 12:53 WBC RBC Hgb Hct MCV MCH MCHC RDW Plt Count Seg Neutrophils % Sodium 137.9 Potassium 4.4 Chloride 109 H Carbon Dioxide 22 Anion Gap 7 BUN 9 Creatinine 0.75 Est GFR ( Amer) > 60 Est GFR (Non-Af Amer) Glucose 98 Calcium 8.9 Total Bilirubin 0.5 AST 32 Alkaline Phosphatase 100 Total Protein 6.2 L Albumin 3.6 11/06/18 11/06/18 11/06/18 12:25 12:25 12:53 Creatine Kinase Cancelled CK-MB (CK-2) Cancelled 1.65 Troponin I Cancelled < 0.012 NT-Pro-B Natriuret Pep 11/06/18 11/06/18 11/06/18 12:53 12:53 18:34 Creatine Kinase 77 CK-MB (CK-2) Troponin I < 0.012 NT-Pro-B Natriuret Pep 640 Impressions: Chest X-Ray 11/06/18 12:02 IMPRESSION: NO ACUTE RADIOGRAPHIC FINDING IN THE CHEST. Lung Scan-VQ NM 11/06/18 14:15 IMPRESSION: No ventilation-perfusion mismatches.Perfusion images with generally homogenous activity. Centralized heterogeneous clumping of radiotracer on ventilation scan. Assessment & Plan - Diagnosis (1) TIA (transient ischemic attack) Is this a current diagnosis for this admission?: Yes Plan: Continues the patient on aspirin Plavix unfortunately patient unable to take the statin for the side effect (2) Hypertension Qualifiers: Hypertension type: essential hypertension Qualified Code(s): I10 - Essential (primary) hypertension Is this a current diagnosis for this admission?: Yes Plan: Currently running in the lower end we will hold the CNS Response (3) Hyperlipidemia Qualifiers: Hyperlipidemia type: unspecified Qualified Code(s): E78.5 - Hyperlipidemia, unspecified Is this a current diagnosis for this admission?: Yes Plan: Check the lipid profile in the morning (4) Chronic obstructive pulmonary disease (COPD) Qualifiers: COPD type: chronic bronchitis Is this a current diagnosis for this admission?: Yes Plan: Continues to nebulizer treatments (5) Chronic systolic heart failure Is this a current diagnosis for this admission?: Yes Plan: the Bumex (6) Ischemic cardiomyopathy Is this a current diagnosis for this admission?: Yes Plan: Since seen by the cardiology in the last admission Dr. Alfonso (7) Vertigo Is this a current diagnosis for this admission?: Yes Plan: Start the patient in the meclizine - Time Time Spent: 50 to 70 Minutes Medications reviewed and adjusted accordingly: Yes Anticipated discharge: Home Within: Other - Inpatient Certification Based on my medical assessment, after consideration of the patient's comorbidities, presenting symptoms, or acuity I expect that the services needed warrant INPATIENT care.: Yes I certify that my determination is in accordance with my understanding of Medicare's requirements for reasonable and necessary INPATIENT services [42 CFR 412.3e].: Yes Medical Necessity: Significant Comorbidiites Make Outpatient Treatment Too Risky, Need For Continuous Telemetry Monitoring, Need for Neurological Checks Post Hospital Care: D/C Staffing Program Manager Documentation - Plan Summary Plan Summary: Admit the patient's in a monitored bed Continues to TIA protocol
[2018-11-06 20:50] LABS: APPEARANCE,URINE CLEAR; BILIRUBIN,URINE NEGATIVE (NEGATIVE); COLOR,URINE YELLOW; GLUCOSE, URINE NEGATIVE (NEGATIVE); KETONES,URINE NEGATIVE (NEGATIVE); LEUKOCYTE ESTERASE,URINE NEGATIVE (NEGATIVE); NITRITE,URINE NEGATIVE (NEGATIVE); PROTEIN,URINE NEGATIVE (NEGATIVE); URINE SPECIFIC GRAVITY 1.011; UROBILINOGEN,URINE NEGATIVE mg/dL (<2.0)
--- NOTE | 2018-11-06 21:51 | EKG REPORT ---
SEVERITY:- ABNORMAL ECG - SINUS RHYTHM ANTERIOR INFARCT, OLD : Confirmed by: Maikel Gilbert MD 06-Nov-2018 21:51:06
[2018-11-07 01:45] LABS: TROPONIN I < 0.012 ng/mL
[2018-11-07] MEDS ORDERED: MECLIZINE HCL 12.5 MG TABLET ONE (06:04)
[2018-11-07] MEDS: MECLIZINE HCL 12.5 MG TABLET PO SCH ×3 (06:36→18:52)
[2018-11-07 07:11] LABS: CHOLESTEROL 105.95 mg/dL (0-200); CREATINE KINASE 72 U/L (30-135); TRIGLYCERIDES 84 mg/dL (<150)
[2018-11-07 07:24] LABS: DIRECT LDL 58 mg/dL (<100)
[2018-11-07 07:32] LABS: CREATINE KINASE MB 1.45 ng/mL (<4.55)
[2018-11-07 07:40] LABS: TROPONIN I < 0.012 ng/mL
[2018-11-07] MEDS: ASPIRIN 81 MG TABLET, ENT COATED PO SCH (09:40)
[2018-11-07] MEDS: CLOPIDOGREL BISULFATE 75 MG TABLET PO SCH (09:53)
--- NOTE | 2018-11-07 10:01 | PDOC PROGRESS REPORT ---
Subjective Progress Note for:: 11/07/18 Subjective:: Patient is feeling much better Denied any chest pain to than any shortness of the breath No tingling no numbness Patients walk with the physical therapy pretty much cleared to go Patient's otherwise no other symptoms Unable to get the CT angiogram due to the difficulty to the IV But patients pretty much back to the normal Reason For Visit: TIA(TRANSIENT ISCHEMIC ATTACK) Physical Exam Vital Signs: Temp Pulse Resp BP Pulse Ox 98.2 F 67 18 117/75 97 11/07/18 04:53 11/07/18 07:00 11/07/18 06:00 11/07/18 06:00 11/07/18 06:00 Intake & Output 11/06/18 11/07/18 11/08/18 06:59 06:59 06:59 Intake Total 905 Output Total 80 Balance 825 Weight 98.4 kg General appearance: PRESENT: no acute distress, well-developed, well-nourished Head exam: PRESENT: atraumatic, normocephalic Eye exam: PRESENT: conjunctiva pink, EOMI, PERRLA. ABSENT: scleral icterus Ear exam: PRESENT: normal external ear exam Mouth exam: PRESENT: moist, tongue midline Neck exam: PRESENT: full ROM. ABSENT: carotid bruit, JVD, lymphadenopathy, thyromegaly Respiratory exam: PRESENT: clear to auscultation augie Cardiovascular exam: PRESENT: RRR. ABSENT: diastolic murmur, rubs, systolic murmur Pulses: PRESENT: normal dorsalis pedis pul, +2 pedal pulses bilateral Vascular exam: PRESENT: normal capillary refill GI/Abdominal exam: PRESENT: normal bowel sounds, soft. ABSENT: distended, guarding, mass, organolmegaly, rebound, tenderness Rectal exam: PRESENT: deferred Extremities exam: ABSENT: pedal edema Musculoskeletal exam: PRESENT: ambulatory Neurological exam: PRESENT: alert, awake, oriented to person, oriented to place, oriented to time, oriented to situation, reflexes normal, CN II-XII grossly intact, normal gait. ABSENT: motor sensory deficit Psychiatric exam: PRESENT: appropriate affect, normal mood. ABSENT: homicidal ideation, suicidal ideation Skin exam: PRESENT: dry, intact, warm. ABSENT: cyanosis, rash Results Laboratory Results: 11/06/18 12:53 11/06/18 12:53 11/06/18 11/06/18 11/06/18 12:25 12:25 12:53 WBC Cancelled 9.8 RBC Cancelled 5.03 Hgb Cancelled 14.3 Hct Cancelled 42.6 MCV Cancelled 85 MCH Cancelled 28.5 MCHC Cancelled 33.7 RDW Cancelled 13.7 Plt Count Cancelled 103 L Seg Neutrophils % Cancelled 80.7 H Sodium Cancelled Potassium Cancelled Chloride Cancelled Carbon Dioxide Cancelled Anion Gap Cancelled BUN Cancelled Creatinine Cancelled Est GFR ( Amer) Cancelled Est GFR (Non-Af Amer) Cancelled Glucose Cancelled Calcium Cancelled Total Bilirubin Cancelled AST Cancelled Alkaline Phosphatase Cancelled Total Protein Cancelled Albumin Cancelled Triglycerides Cholesterol LDL Cholesterol Direct VLDL Cholesterol HDL Cholesterol Urine Color Urine Appearance Urine pH Ur Specific [place] Urine Protein Urine Glucose (UA) Urine Ketones Urine Blood Urine Nitrite Ur Leukocyte Esterase Urine WBC (Auto) Urine RBC (Auto) 11/06/18 11/06/18 11/07/18 12:53 20:15 06:26 WBC RBC Hgb Hct MCV MCH MCHC RDW Plt Count Seg Neutrophils % Sodium 137.9 Potassium 4.4 Chloride 109 H Carbon Dioxide 22 Anion Gap 7 BUN 9 Creatinine 0.75 Est GFR ( Amer) > 60 Est GFR (Non-Af Amer) Glucose 98 Calcium 8.9 Total Bilirubin 0.5 AST 32 Alkaline Phosphatase 100 Total Protein 6.2 L Albumin 3.6 Triglycerides 84 Cholesterol 105.95 LDL Cholesterol Direct 58 VLDL Cholesterol 17.0 HDL Cholesterol 36 L Urine Color YELLOW Urine Appearance CLEAR Urine pH 6.0 Ur Specific [place] 1.011 Urine Protein NEGATIVE Urine Glucose (UA) NEGATIVE Urine Ketones NEGATIVE Urine Blood NEGATIVE Urine Nitrite NEGATIVE Ur Leukocyte Esterase NEGATIVE Urine WBC (Auto) 1 Urine RBC (Auto) 1 11/06/18 11/06/18 11/06/18 12:25 12:25 12:53 Creatine Kinase Cancelled CK-MB (CK-2) Cancelled 1.65 Troponin I Cancelled < 0.012 NT-Pro-B Natriuret Pep 11/06/18 11/06/18 11/06/18 12:53 12:53 18:34 Creatine Kinase 77 CK-MB (CK-2) Troponin I < 0.012 NT-Pro-B Natriuret Pep 640 11/07/18 11/07/18 11/07/18 00:52 00:52 06:26 Creatine Kinase 76 72 CK-MB (CK-2) 1.50 Troponin I < 0.012 NT-Pro-B Natriuret Pep 11/07/18 06:26 Creatine Kinase CK-MB (CK-2) 1.45 Troponin I < 0.012 NT-Pro-B Natriuret Pep Impressions: Chest X-Ray 11/06/18 12:02 IMPRESSION: NO ACUTE RADIOGRAPHIC FINDING IN THE CHEST. Lung Scan-VQ NM 11/06/18 14:15 IMPRESSION: No ventilation-perfusion mismatches.Perfusion images with generally homogenous activity. Centralized heterogeneous clumping of radiotracer on ventilation scan. Assessment & Plan - Diagnosis (1) TIA (transient ischemic attack) Is this a current diagnosis for this admission?: Yes Plan: Continues the patient on aspirin Plavix unfortunately patient unable to take the statin for the side effect (2) Hypertension Qualifiers: Hypertension type: essential hypertension Qualified Code(s): I10 - Essential (primary) hypertension Is this a current diagnosis for this admission?: Yes Plan: Currently running in the lower end we will hold the Accurate Group (3) Hyperlipidemia Qualifiers: Hyperlipidemia type: unspecified Qualified Code(s): E78.5 - Hyperlipidemia, unspecified Is this a current diagnosis for this admission?: Yes Plan: Check the lipid profile in the morning (4) Chronic obstructive pulmonary disease (COPD) Qualifiers: COPD type: chronic bronchitis Is this a current diagnosis for this admission?: Yes Plan: Continues to nebulizer treatments (5) Chronic systolic heart failure Is this a current diagnosis for this admission?: Yes Plan: the Bumex (6) Ischemic cardiomyopathy Is this a current diagnosis for this admission?: Yes Plan: Since seen by the cardiology in the last admission Dr. Alfonso (7) Vertigo Is this a current diagnosis for this admission?: Yes Plan: Start the patient in the meclizine - Time Time Spent with patient: 15-24 minutes Medications reviewed and adjusted accordingly: Yes Anticipated discharge: Home Within: Other - Plan Summary Plan Summary: Continues to current medications
[2018-11-07 13:54] LABS: CREATINE KINASE MB 1.75 ng/mL (<4.55)
[2018-11-07 13:55] LABS: TROPONIN I < 0.012 ng/mL
[2018-11-07] MEDS ORDERED: ALBUTEROL SULFATE HFA (90 MCG/PUFF) 200 PUFF/8.5 GM MDI IH PRN (15:33)
[2018-11-07] MEDS ORDERED: MECLIZINE HCL 25 MG TABLET PO PRN (15:33)
[2018-11-07] MEDS ORDERED: EPINEPHRINE 0.3 MG IJ PRN (15:33)
[2018-11-07] MEDS ORDERED: TRAMADOL HCL 50 MG TABLET PO PRN (15:33)
[2018-11-07] MEDS ORDERED: NITROGLYCERIN 0.4 MG/TAB 25 TAB/BOTTLE SL PRN (15:33)
[2018-11-07] MEDS ORDERED: PILOCARPINE HCL 5 MG PO PRN ×2 (16:11→17:37)
[2018-11-07] MEDS ORDERED: METOPROLOL SUCCINATE 25 MG TAB.SR.24H PO ONE (16:56)
[2018-11-07] MEDS ORDERED: PILOCARPINE HCL 5 MG PO SCH (18:00)
[2018-11-07] MEDS: NAPROXEN 250 MG TABLET PO SCH (21:06)
[2018-11-07] MEDS ORDERED: DOXEPIN HCL 10 MG CAPSULE PO SCH (22:00)
[2018-11-07] MEDS ORDERED: ATORVASTATIN CALCIUM 10 MG TABLET PO SCH (22:00)
[2018-11-07] MEDS ORDERED: GABAPENTIN 300 MG CAPSULE PO SCH (22:00)
[2018-11-08] MEDS: MECLIZINE HCL 12.5 MG TABLET PO SCH ×3 (03:26→17:31)
[2018-11-08] MEDS: ASPIRIN 81 MG TABLET, ENT COATED PO SCH (09:49)
[2018-11-08] MEDS ORDERED: CETIRIZINE 5 MG TABLET PO SCH (10:00)
[2018-11-08] MEDS ORDERED: FLUTICASONE/VILANTEROL 200-25 MCG/DOSE IH SCH (10:00)
[2018-11-08] MEDS ORDERED: METOPROLOL SUCCINATE 25 MG TAB.SR.24H PO SCH (10:00)
[2018-11-08] MEDS ORDERED: (PENDING PHARMACY ID) (Pitavastatin Calcium [Livalo] 4 MG) PO SCH (10:00)
[2018-11-08] MEDS ORDERED: PANTOPRAZOLE SODIUM 40 MG TABLET.DR PO SCH (10:00)
[2018-11-08] MEDS ORDERED: ROFLUMILAST 500 MCG TABLET PO SCH (10:00)
[2018-11-08] MEDS ORDERED: (PENDING PHARMACY ID) (Roflumilast [Daliresp 500 Mcg Tablet] 500 MCG) PO SCH (10:00)
[2018-11-08] MEDS ORDERED: VALSARTAN 40 MG TABLET PO SCH (10:00)
[2018-11-08] MEDS: NAPROXEN 250 MG TABLET PO SCH (10:08)
[2018-11-08] MEDS: CLOPIDOGREL BISULFATE 75 MG TABLET PO SCH (10:10)
[2018-11-08 18:40] VITALS: BP 125/70
--- NOTE | 2018-11-08 20:18 | PDOC DISCHARGE SUMMARY ---
General - Admit/Disc Date/PCP Admission Date/Primary Care Provider: 11/06/18 18:24 JIMMY CORONA MD Discharge Date: 11/08/18 - Additional Information Discharge Diet: As Tolerated Discharge Activity: Activity As Tolerated, Balance Activity w/Rest Home Medications: RX: Albuterol Sulfate [Proair HFA Inhalation Aerosol 8.5 gm MDI] 2 puff IH Q4HP PRN 05/25/18 RX: Budesonide/Formoterol Fumarate [Symbicort HFA 160-4.5 mcg Inhaler 6 gm] 2 puff IH Q12 05/25/18 RX: Dexlansoprazole [Dexilant 60 mg Capsule] 60 mg PO DAILY 05/25/18 RX: Doxepin HCl [Sinequan 10 mg Capsule] 10 mg PO QHS 05/25/18 RX: Pilocarpine HCl [Salagen] 5 mg PO Q6HP PRN 05/25/18 RX: Pitavastatin Calcium [Livalo] 4 mg PO DAILY 05/25/18 RX: Epinephrine [Epipen] 0.3 mg IJ PRN PRN #1 auto.injct 10/24/18 RX: Gabapentin [Neurontin 300 mg Capsule] 600 mg PO QHS 11/07/18 RX: Levocetirizine Dihydrochloride [Xyzal] 5 mg PO DAILY 11/07/18 RX: Meclizine HCl [Antivert 25 mg Tablet] 25 mg PO TIDP PRN 11/07/18 RX: Metoprolol Succinate [Toprol Xl 25 mg Tab.sr] 25 mg PO DAILY 11/07/18 RX: Naproxen [Naprosyn 250 mg Tablet] 250 mg PO Q12 11/07/18 RX: Nitroglycerin [Nitrostat 0.4 mg (1/150 Gr) Tabs 25/Bottle] 1 tab SL Q5MP PRN 11/07/18 RX: Roflumilast [Daliresp 500 mcg Tablet] 500 mcg PO DAILY 11/07/18 RX: Tiotropium Br/Olodaterol HCl [Stiolto Respimat Inhal [place]] 1 puff IH Q12 11/07/18 RX: Tramadol HCl [Ultram 50 mg Tablet] 50 mg PO HSP PRN 11/07/18 RX: Valsartan [Diovan 40 mg Tablet] 40 mg PO DAILY 11/07/18 History of Present Illness History of Present Illness: DHAVAL ROD is a 53 year old female, She came to the emergency room for indio luation of tingling numbness of the left side Hospital Course Hospital Course: Patient was admitted for evaluation and management of left hemisensory loss, she had numbness and tingling of the left side of her body. A CAT scan of the head was done, it was negative for any acute pathology, she could not get MRI because she has AICD/pacemaker placement.I saw the patient on the floor today, she is asymptomatic, there is no focal deficits there is no hemisensory loss, patient symptom is most consistent with transient ischemic attack Physical Exam Vital Signs: Temp Pulse Resp BP Pulse Ox 97.5 F 62 16 106/58 L 100 11/08/18 18:19 11/08/18 18:19 11/08/18 18:19 11/08/18 18:19 11/08/18 18:19 Intake & Output 11/07/18 11/08/18 11/09/18 06:59 06:59 06:59 Intake Total 905 1988 1420 Output Total 80 4200 Balance 825 -2212 1420 Weight 98.4 kg 98.2 kg General appearance: PRESENT: no acute distress, well-developed, well-nourished Head exam: PRESENT: atraumatic, normocephalic Eye exam: PRESENT: conjunctiva pink, EOMI, PERRLA Ear exam: PRESENT: normal external ear exam Neck exam: PRESENT: full ROM Respiratory exam: PRESENT: clear to auscultation augie Cardiovascular exam: PRESENT: RRR, +S1, +S2 Vascular exam: PRESENT: normal capillary refill GI/Abdominal exam: PRESENT: normal bowel sounds, soft Rectal exam: PRESENT: deferred Neurological exam: PRESENT: alert, awake, oriented to person, oriented to place, oriented to time, oriented to situation, CN II-XII grossly intact Psychiatric exam: PRESENT: appropriate affect, normal mood Skin exam: PRESENT: dry, intact, warm Results Laboratory Results: 11/06/18 12:53 11/06/18 12:53 11/06/18 11/06/18 11/06/18 12:25 12:25 12:53 Creatine Kinase Cancelled CK-MB (CK-2) Cancelled 1.65 Troponin I Cancelled < 0.012 NT-Pro-B Natriuret Pep 11/06/18 11/06/18 11/06/18 12:53 12:53 18:34 Creatine Kinase 77 CK-MB (CK-2) Troponin I < 0.012 NT-Pro-B Natriuret Pep 640 11/07/18 11/07/18 11/07/18 00:52 00:52 06:26 Creatine Kinase 76 72 CK-MB (CK-2) 1.50 Troponin I < 0.012 NT-Pro-B Natriuret Pep 11/07/18 11/07/18 11/07/18 06:26 12:43 12:43 Creatine Kinase 85 CK-MB (CK-2) 1.45 1.75 Troponin I < 0.012 < 0.012 NT-Pro-B Natriuret Pep Impressions: Chest X-Ray 11/06/18 12:02 IMPRESSION: NO ACUTE RADIOGRAPHIC FINDING IN THE CHEST. Lung Scan-VQ NM 11/06/18 14:15 IMPRESSION: No ventilation-perfusion mismatches.Perfusion images with generally homogenous activity. Centralized heterogeneous clumping of radiotracer on ventilation scan. Qualifiers PATIENT BEING DISCHARGED WITH ANY OF THE FOLLOWING DIAGNOSIS: No VTE patient discharged on overlapping Therapy?: No Stroke Pt being discharged on Anti-thrombolytic therapy?: No Reason(s) for not prescribing Anti-thrombolytic therapy:: Not indicated Stroke Pt being discharged on Anti-coagulation therapy?: No Reason(s) for not prescribing Anti-coagulation therapy:: Not indicated Stroke Pt being discharged on Statins?: No Reason(s) for not prescribing Statins therapy:: Not indicated [place] Pt being discharged on Aspirin therapy?: No Reason(s) for not prescribing Aspirin therapy:: Not indicated [place] Pt being discharged on Statins?: No Reason(s) for not prescribing Statin therapy:: Not indicated [place] Pt discharged ACEI/ARBS?: No Reason(s) for not prescribing ACEI/ARBS:: Not indicated Acute Heart Failure - Is this a Heart Failure Patient?: No Follow-up Appointment scheduled within 7 days?: Yes
== END 2018-11-08 18:55 | disposition home or self-care (01) ==
LOC: ER 11:55 → EH 18:24 → 3S 21:00
PROVIDERS: ADMIT Internal Medicine; ATTEND Internal Medicine
DX: G45.9 Transient cerebral ischemic attack, unspecified (principal); I25.5 Ischemic cardiomyopathy; I50.22 Chronic systolic (congestive) heart failure; I25.119 Atherosclerotic heart disease of native coronary artery with unspecified angina pectoris; J42 Unspecified chronic bronchitis; E78.5 Hyperlipidemia, unspecified; I11.0 Hypertensive heart disease with heart failure; I50.9 Heart failure, unspecified; R42 Dizziness and giddiness; F17.200 Nicotine dependence, unspecified, uncomplicated; I25.2 Old myocardial infarction; Z79.899 Other long term (current) drug therapy; Z95.810 Presence of automatic (implantable) cardiac defibrillator; Z86.73 Personal history of transient ischemic attack (TIA), and cerebral infarction without residual deficits; Z95.5 Presence of coronary angioplasty implant and graft; Z82.3 Family history of stroke; Z79.02 Long term (current) use of antithrombotics/antiplatelets; Z79.82 Long term (current) use of aspirin; Z82.49 Family history of ischemic heart disease and other diseases of the circulatory system; Z97.8 Presence of other specified devices
CPT/HCPCS: 93005; 99285; 36415 ×2; 82553 ×2; 82962; 82550 ×2; 85025; 85610; 85730; 80053; 81001; 84484 ×2; 80061; 83880; 71045; 78582; 70450; 93010; 97163; G0378 ×4; A9540; A9567; A9270 ×16; J3490 ×2; Q9969

== ENCOUNTER → 2019-02-07 | Outpatient (CLI) | payer MEDICARE, MEDICAID ==
[2019-02-07 16:38] LABS: HEMATOCRIT 49.7 % (36.0-47.0); HEMOGLOBIN 16.4 g/dL (12.0-15.5); MEAN CORPUSCULAR HEMOGLOBIN 27.8 pg (27.0-33.4); MEAN CORPUSCULAR HGB CONC 33.1 g/dL (32.0-36.0); MEAN CORPUSCULAR VOLUME 84 fl (80-97); RED BLOOD COUNT 5.92 10^6/uL (3.72-5.28); RED CELL DISTRIBUTION WIDTH 13.5 % (11.5-14.0)
[2019-02-07 16:42] LABS: PLATELET COUNT 99 10^3/uL (150-450)
[2019-02-07 16:58] LABS: ABSOLUTE LYMPHOCYTES# (MANUAL) 3.2 10^3/uL (0.5-4.7); ABSOLUTE MONOCYTES # (MANUAL) 0.7 10^3/uL (0.1-1.4); BAND NEUTROPHILS % (MANUAL) 1 % (3-5); BASOPHILS % (MANUAL) 0 % (0-2); EOSINOPHILS % (MANUAL) 0 % (0-6); LYMPHOCYTES % (MANUAL) 19 % (13-45); MONOCYTES % (MANUAL) 4 % (3-13); RBC MORPHOLOGY COMMENT NORMO-CYTIC/CHROMIC; SEGMENTED NEUTROPHILS % (MAN) 76 % (42-78); TOTAL CELLS COUNTED 100
[2019-02-07 16:59] LABS: PLATELET COMMENT DECREASED
== END ==
LOC: OD 15:47
PROVIDERS: ATTEND Internal Medicine Pulmonary Disease
DX: L50.3 Dermatographic urticaria (principal)
CPT/HCPCS: 36415; 82785; 83520; 85025

== ENCOUNTER 2019-02-14 09:25 | Emergency (ER) | payer MEDICARE, MEDICAID ==
[2019-02-14] MEDS ORDERED: MORPHINE SULFATE 10 MG/ML INJ IV ONE (10:06)
[2019-02-14] MEDS ORDERED: IPRATROPIUM/ALBUTEROL 0.5-2.5 MG/3 ML AMPUL NEB ONE (10:06)
[2019-02-14] MEDS ORDERED: ONDANSETRON HCL INJ/PF 4 MG/2 ML SDV IV ONE (10:06)
--- NOTE | 2019-02-14 10:10 | ER Document Report ---
ED GI/ - General Chief Complaint: Abdominal Pain Stated Complaint: ABDOMINAL PAIN Time Seen by Provider: 02/14/19 09:54 Primary Care Provider: BROCK SEWELL MD [ACTIVE STAFF] - Follow up as needed Notes: Ms. Doran is a 53 yo f w/ PMH CAD w/ LAD stent, COPD, ischemic cardiomyopathy, vertigo, ischemic colitis, chronic respiratory failure, history of sudden cardiac arrest, previous TIA, hypertension, hyperlipidemia presenting to the ED for abdominal pain. Patient states that the pain began yesterday evening around 7 PM. She describes it as a tearing type sensation in her right upper quadrant and right middle quadrant. Patient has a remote history of an hysterectomy and oophorectomy and states she has history of a small abdominal hernia that she and Dr. Coker have been following. Patient quit smoking in 2013 but has extensive history of COPD. Not normally on any oxygen throughout the day. Patient is subjective fever and chills. She also endorses nausea without any vomiting. No diarrhea. Patient states her last bowel movement was yesterday in the daytime. She denies any cough or chest pain but does endorse shortness of breath. No known ill contacts. TRAVEL OUTSIDE OF THE [place] IN LAST 30 DAYS: No - Related Data Allergies/Adverse Reactions: acetaminophen [From Tylenol] Allergy (Severe, Verified 02/14/19 10:44) Anaphylaxis levofloxacin [From Levaquin] Allergy (Severe, Verified 02/14/19 10:44) Anaphylaxis lisinopril [Lisinopril] Allergy (Severe, Verified 02/14/19 10:44) sob, throat swelling rosuvastatin [From Crestor] Allergy (Mild, Verified 02/14/19 10:44) Hives atorvastatin calcium [From Lipitor] Adverse Reaction (Severe, Verified 02/14/19 10:44) muscle cramps adhesive tape [Adhesive Tape] Adverse Reaction (Intermediate, Verified 02/14/19 10:44) Hives Past Medical History - Social History Smoking Status: Former Smoker Family History: CAD, CVA, DM, Malignancy - Past Medical History Cardiac Medical History: Reports: Hx Congestive Heart Failure, Hx Coronary Artery Disease - ANGINA, stent, Hx Heart Attack - 2011, Hx Hypercholesterolemia Denies: Hx Atrial Fibrillation, Hx Hypertension - on meds, Hx Peripheral Vascular Disease, Hx Pulmonary Embolism, Hx Heart Murmur Pulmonary Medical History: Reports: Hx Asthma, Hx Bronchitis - hx of, Hx COPD, Hx Respiratory Failure Denies: Hx Sleep Apnea, Hx Tuberculosis Neurological Medical History: Denies: Hx Cerebrovascular Accident, Hx Seizures, Hx Parkinson's Disease Endocrine Medical History: Denies: Hx Graves' Disease, Hx Hyperthyroidism, Hx Hypothyroidism Renal/ Medical History: Reports: Hx Kidney Stones, Hx Ovarian Cysts. Denies: Hx End Stage Renal Disease, Hx Peritoneal Dialysis, Hx Pelvic Inflammatory Disea se Malignancy Medical History: Denies: Hx Breast Cancer, Hx Cervical Cancer, Hx Leukemia, Hx Lung Cancer, Hx Ovarian Cancer GI Medical History: Denies: Hx Crohn's Disease, Hx Gastroesophageal Reflux Disease, Hx Hiatal Hernia, Hx Irritable Bowel, Hx Liver Failure, Hx Pancreatitis, Hx Ulcer Musculoskeletal Medical History: Reports Hx Arthritis, Denies Hx Fibromyalgia, Denies Hx Multiple Sclerosis, Denies Hx Muscular Dystrophy, Denies Hx Systemic Lupus Erythematosus Psychiatric Medical History: Denies: Hx Bipolar Disorder, Hx Dementia, Hx Depression, Hx Post Traumatic Stress Disorder, Hx Schizophrenia Traumatic Medical History: Reports: Hx Fractures - right ankle fracture 1990 Infectious Medical History: Denies: Hx HIV Past Surgical History: Reports: Hx Cardiac Catheterization - with stents, Hx Cardiac Surgery - cardiac stent, Hx Section, Hx Hysterectomy, Hx Pacemaker, Hx Tonsillectomy. Denies: Hx Appendectomy, Hx Bowel Surgery, Hx Cholecystectomy, Hx Colostomy, Hx Coronary Artery Bypass Graft, Hx Gastric Bypass Surgery, Hx Herniorrhaphy, Hx Mastectomy, Hx Tubal Ligation - Immunizations Immunizations up to date: Yes Hx Diphtheria, Pertussis, Tetanus Vaccination: Yes Hx Pneumococcal Vaccination: 02/02/14 Review of Systems - Review of Systems Constitutional: See HPI EENT: No symptoms reported Cardiovascular: See HPI Respiratory: See HPI Gastrointestinal: See HPI Genitourinary: No symptoms reported Female Genitourinary: No symptoms reported Musculoskeletal: No symptoms reported Skin: No symptoms reported Hematologic/Lymphatic: No symptoms reported Neurological/Psychological: No symptoms reported Physical Exam - Vital signs Vitals: Temp Pulse Resp BP Pulse Ox 103.0 F H 120 H 22 H 142/88 H 88 L 02/14/19 09:31 02/14/19 09:31 02/14/19 09:31 02/14/19 09:31 02/14/19 09:31 Interpretation: Tachycardic, Hypoxic, Tachypneic, Febrile - General General appearance: Alert, Other - Ill-appearing In distress: Moderate - HEENT Head: Normocephalic, Atraumatic Eyes: Normal Pupils: PERRL - Respiratory Respiratory status: No respiratory distress, Respiratory distress, Labored, Tachypnea Chest status: Nontender Breath sounds: Decreased air movement, Nonproductive cough, Wheezing Chest palpation: Normal - Cardiovascular Rhythm: Tachycardia Heart sounds: Normal auscultation Murmur: No - Abdominal Inspection: Normal Distension: No distension Bowel sounds: Normal Tenderness: Tender, Collier's sign, Guarding. No: Rebound Organomegaly: No organomegaly - Back Back: Normal, Nontender - Extremities General upper extremity: Normal inspection, Nontender, Normal color, Normal ROM, Normal temperature General lower extremity: Normal inspection, Nontender, Normal color, Normal ROM, Normal temperature, Normal weight bearing. No: Zulma's sign - Neurological Neuro grossly intact: Yes Cognition: Normal Orientation: AAOx4 [place] Coma Scale Eye Opening: Spontaneous [place] Coma Scale Verbal: Oriented [place] Coma Scale Motor: Obeys Commands [place] Coma Scale Total: 15 Speech: Normal Motor strength normal: LUE, RUE, LLE, RLE Sensory: Normal - Psychological Associated symptoms: Normal affect, Normal mood - Skin Skin Temperature: Warm Skin Moisture: Dry Skin Color: Normal Course - Re-evaluation Re-evalutation: Patient is ill-appearing and appears uncomfortable. Initial vitals notable for fever, hypoxia and tachycardia. Differential diagnosis includes pneumonia, UTI, SBO, cholecystitis, appendicitis 02/14/19 10:23 Patient ordered for labs, and CT abdomen pelvis. Patient also ordered for Zofran for nausea and morphine for pain control. 02/14/19 10:29 CBC does not show significant leukocytosis or left shift. H&H shows evidence of hemoconcentration. Patient was given IV fluids here in the ED. CMP is otherwise unremarkable. Troponin is negative. UA is negative for evidence of infection. The level of abdominal pain on patient's arrival, patient was ordered for CT. She is also had previous intra-abdominal surgeries. 02/14/19 13:44 Called radiology regarding no report for CT abd pelv. 02/14/19 14:48 CT abdomen pelvis otherwise unremarkable. Possible GERD as underlying source of pain. Patient ordered for famotidine as well as GI cocktail. Patient will be discharged with return precautions. 02/14/19 15:13 Patient was ordered for prednisone here as well as to be discharged with it. She states she cannot tolerate it and causes her to have swelling. Patient states she tolerates dexamethasone. Will give a one-time dose now. - Vital Signs Vital signs: Temp Pulse Resp BP Pulse Ox 99.7 F 112 H 18 142/95 H 89 L 02/14/19 16:46 02/14/19 16:46 02/14/19 16:46 02/14/19 16:46 02/14/19 16:46 - Laboratory Result Diagrams: 02/14/19 10:15 02/14/19 10:15 Laboratory results interpreted by me: 02/14/19 02/14/19 02/14/19 10:15 10:15 11:50 RBC 5.53 H Hgb 15.6 H Plt Count 73 L Lymph % (Auto) 9.7 L Absolute Neuts (auto) 9.0 H Seg Neutrophils % 85.2 H Sodium 133.7 L Est GFR (MDRD) Non-Af 59 L Calcium 8.2 L AST 78 H Urine Protein 100 H Urine Blood SMALL H Discharge - Discharge Clinical Impression: COPD exacerbation Abdominal pain Qualifiers: Abdominal location: upper abdomen, unspecified Qualified Code(s): R10.10 - Upper abdominal pain, unspecified Condition: Good Disposition: HOME, SELF-CARE Instructions: Abdominal Pain ([facility]), Chronic Obstructive Lung Disease ([facility]) Additional Instructions: It is important he take the remaining course of steroids for your COPD. I would avoid foods high in acidity as they can cause your abdominal pain to worsen. Follow-up with your primary care doctor as needed. If you develop worsening abdominal pain, unable to keep down food or drink, or any other concerning symptoms, return to the ED for further evaluation. Prescriptions: Prednisone [Deltasone 20 mg Tablet] 3 tab PO DAILY 4 Days #12 tablet Referrals: BROCK SEWELL MD [ACTIVE STAFF] - Follow up as needed
[2019-02-14 10:41] LABS: ABSOLUTE MONOCYTES (AUTO) 0.5 10^3/uL (0.1-1.4); BASOPHILS % (AUTO) 0.3 % (0-2); EOSINOPHILS % (AUTO) 0.1 % (0-6); HEMATOCRIT 46.3 % (36.0-47.0); HEMOGLOBIN 15.6 g/dL (12.0-15.5); LYMPHOCYTES % (AUTO) 9.7 % (13-45); MEAN CORPUSCULAR HEMOGLOBIN 28.3 pg (27.0-33.4); MEAN CORPUSCULAR HGB CONC 33.8 g/dL (32.0-36.0); MEAN CORPUSCULAR VOLUME 84 fl (80-97); MONOCYTES % (AUTO) 4.7 % (3-13); RED BLOOD COUNT 5.53 10^6/uL (3.72-5.28); RED CELL DISTRIBUTION WIDTH 13.8 % (11.5-14.0); SEGMENTED NEUTROPHILS % (AUTO) 85.2 % (42-78); TOTAL CELLS COUNTED % (AUTO) 100 %; WHITE BLOOD COUNT 10.5 10^3/uL (4.0-10.5)
[2019-02-14 10:47] LABS: ALBUMIN 3.8 g/dL (3.5-5.0); ALKALINE PHOSPHATASE 85 U/L (38-126); ANION GAP 11 (5-19); ASPARTATE AMINO TRANSFERASE 78 U/L (14-36); BILIRUBIN,DIRECT 0.2 mg/dL (0.0-0.4); BLOOD UREA NITROGEN 15 mg/dL (7-20); CALCIUM 8.2 mg/dL (8.4-10.2); CARBON DIOXIDE 25 mmol/L (22-30); CHLORIDE 98 mmol/L (98-107); GLUCOSE 77 mg/dL (75-110); POTASSIUM 4.5 mmol/L (3.6-5.0); TOTAL PROTEIN 6.9 g/dL (6.3-8.2)
[2019-02-14 11:03] LABS: PLATELET COUNT 73 10^3/uL (150-450)
--- NOTE | 2019-02-14 11:30 | RADIOLOGY REPORT (SQ) ---
EXAM DESCRIPTION: CHEST SINGLE VIEW COMPLETED DATE/TIME: 02/14/2019 11:20 am REASON FOR STUDY: shortness of breath COMPARISON: 11/06/2018. EXAM PARAMETERS: NUMBER OF VIEWS: One view. TECHNIQUE: Single frontal radiographic view of the chest acquired. RADIATION DOSE: NA LIMITATIONS: None. FINDINGS: LUNGS AND PLEURA: Mild chronic interstitial changes. Possible small pleural effusion, dif ficult to evaluate due to overlying soft tissue. MEDIASTINUM AND HILAR STRUCTURES: No masses. Contour normal. HEART AND VASCULAR STRUCTURES: Heart normal in size. Normal vasculature. BONES: No acute findings. HARDWARE: Defibrillator. OTHER: No other significant finding. IMPRESSION: MILD CHRONIC APPEARING INTERSTITIAL CHANGES. POSSIBLE SMALL PLEURAL EFFUSION. TECHNICAL DOCUMENTATION: JOB ID: [id number] 4[employer]- All Rights Reserved Reading location - IP/workstation name: [email or web address]
[2019-02-14 12:07] LABS: APPEARANCE,URINE SLIGHTLY-CLOUDY; BILIRUBIN,URINE NEGATIVE (NEGATIVE); COLOR,URINE YELLOW; GLUCOSE, URINE NEGATIVE (NEGATIVE); KETONES,URINE NEGATIVE (NEGATIVE); LEUKOCYTE ESTERASE,URINE NEGATIVE (NEGATIVE); NITRITE,URINE NEGATIVE (NEGATIVE); PROTEIN,URINE 100 mg/dL (NEGATIVE); URINE SPECIFIC GRAVITY 1.018; UROBILINOGEN,URINE NEGATIVE mg/dL (<2.0)
--- NOTE | 2019-02-14 13:44 | RADIOLOGY REPORT (SQ) ---
EXAM DESCRIPTION: CT ABD/PELVIS WITH IV ONLY COMPLETED DATE/TIME: 02/14/2019 12:06 pm REASON FOR STUDY: abd pain, hypoxia, concern for sbo COMPARISON: 01/31/[address] TECHNIQUE: CT scan of the abdomen and pelvis performed using helical scanning technique with dynamic intravenous contrast injection. No oral contrast. Images reviewed with lung, soft tissue, and bone w indows. Reconstructed coronal and sagittal MPR images reviewed. Delayed images for evaluation of the urinary system also acquired. All images stored on PACS. All CT scanners at this facility use dose modulation, iterative reconstruction, and/or weight based d osing when appropriate to reduce radiation dose to as low as reasonably achievable (ALARA). [facility]: Dose Right [facility]: CareDose [facility]: Dose Right [facility]: Teradose 4D [facility]: Strolby CONTRAST TYPE AND DOSE: contrast/concentration: Isovue 350.00 mg/ml; Total Contrast Delivered: 100.0 ml; Total Saline Delivered: 59.7 ml RENAL FUNCTION: GFR > 60. RADIATION DOSE: CT Rad equipment meets quality standard of care and radiation dose reduction techniq ues were employed. CTDIvol: 18.2 - 19.7 mGy. DLP: 1879 mGy-cm.. LIMITATIONS: None. FINDINGS: LOWER CHEST: Scattered patchy airspace and interstitial opacities in both lung bases. No pleural effusion. LIVER: Normal size. Fatty infiltration. Few scattered 5 mm cysts. No enhancing masses. No dilated ducts. SPLEEN: Normal size. No focal lesions. PANCREAS: No masses identified. No significant calcifications. No adjacent inflammation or peripancre atic fluid collections. Pancreatic duct not dilated. GALLBLADDER: No calcified stones. No inflammatory changes to suggest cholecystitis. ADRENAL GLANDS: Stable 1.5 cm left adrenal adenoma. RIGHT KIDNEY AND URETER: Similar 3.2 cm heterogeneous cystic-calcification in the anterior lower pole . No hydronephrosis or hydroureter. LEFT KIDNEY AND URETER: No cysts identified. No solid masses identified. No calcified stones. No hydr onephrosis or hydroureter. AORTA AND VESSELS: No aneurysm. No dissection. Renal arteries, SMA, celiac without significant stenos is. RETROPERITONEUM: No bulky retroperitoneal adenopathy. BOWEL AND PERITONEAL CAVITY: No obstruction or inflammatory changes. No free fluid. APPENDIX: Normal. PELVIS: Prior hysterectomy. . No free fluid. Unremarkable bladder. ABDOMINAL WALL: No masses. No hernias. BONES: No acute findings. OTHER: No other significant finding. IMPRESSION: Scattered patchy airspace and interstitial opacities in both lung bases. No pleural eff usion.NO ACUTE FINDINGS IN THE ABDOMEN OR PELVIS ON CT SCAN WITH IV CONTRAST. TECHNICAL DOCUMENTATION: JOB ID: [id number] [id number] Quality ID # [id number]: Final reports with documentation of one or more dose reduction techniques (e.g., Au tomated exposure control, adjustment of the mA and/or kV according to patient size, use of iterative reconstruction technique) 2010 [employer]- All Rights Reserved Reading location - IP/workstation name: [email or web address]
[2019-02-14] MEDS ORDERED: LIDOCAINE 2% VISCOUS SOLN 20 ML UDCUP PO ONE (14:23)
[2019-02-14] MEDS ORDERED: MAG HYDROX/AL HYDROX/SIMETH SUSP 30 ML UDCUP PO ONE (14:23)
[2019-02-14] MEDS ORDERED: METOCLOPRAMIDE HCL ORAL SOLN 10 MG/10 ML UDCUP PO ONE (14:23)
[2019-02-14] MEDS ORDERED: PREDNISONE 20 MG TABLET PO ONE (15:00)
[2019-02-14 15:05] VITALS: BP 142/95
[2019-02-14] MEDS ORDERED: DEXAMETHASONE SOD PHOS INJ 10 MG/1 ML VIAL IV ONE (15:13)
== END 2019-02-14 16:48 | disposition home or self-care (01) ==
LOC: ER 09:25
DX: R10.11 Right upper quadrant pain (principal); J44.1 Chronic obstructive pulmonary disease with (acute) exacerbation; R10.9 Unspecified abdominal pain; I25.10 Atherosclerotic heart disease of native coronary artery without angina pectoris; R11.0 Nausea; R50.9 Fever, unspecified; R00.0 Tachycardia, unspecified; Z87.891 Personal history of nicotine dependence; Z87.892 Personal history of anaphylaxis; Z88.8 Allergy status to other drugs, medicaments and biological substances; Z88.1 Allergy status to other antibiotic agents; R10.819 Abdominal tenderness, unspecified site; R09.02 Hypoxemia
CPT/HCPCS: 94640; 99284; 96374; 96375; 36415; 87040; 83605; 85025; 80053; 81001; 84484; 71045; 74177; J3490; A9270 ×3; J2270; J2405; J1100; J7620

== ENCOUNTER → 2019-06-30 | Outpatient (CLI) | payer MEDICARE, MEDICAID ==
[2019-06-30 10:00] LABS: ABSOLUTE BASOPHILS # (AUTO) 0.1 10^3/uL (0.0-0.2); ABSOLUTE EOSINOPHILS # (AUTO) 0.2 10^3/uL (0.0-0.6); ABSOLUTE LYMPHOCYTES (AUTO) 2.2 10^3/uL (0.5-4.7); ABSOLUTE MONOCYTES (AUTO) 0.4 10^3/uL (0.1-1.4); ABSOLUTE NEUT (AUTO) 5.4 10^3/uL (1.7-8.2); BASOPHILS % (AUTO) 0.6 % (0-2); EOSINOPHILS % (AUTO) 2.8 % (0-6); HEMATOCRIT 43.5 % (36.0-47.0); HEMOGLOBIN 15.1 g/dL (12.0-15.5); MEAN CORPUSCULAR HEMOGLOBIN 29.5 pg (27.0-33.4); MEAN CORPUSCULAR HGB CONC 34.7 g/dL (32.0-36.0); MEAN CORPUSCULAR VOLUME 85 fl (80-97); MONOCYTES % (AUTO) 4.5 % (3-13); PLATELET COUNT 101 10^3/uL (150-450); RED BLOOD COUNT 5.12 10^6/uL (3.72-5.28); SEGMENTED NEUTROPHILS % (AUTO) 65.1 % (42-78); TOTAL CELLS COUNTED % (AUTO) 100 %; WHITE BLOOD COUNT 8.2 10^3/uL (4.0-10.5)
== END ==
LOC: OD 09:21
PROVIDERS: ATTEND Internal Medicine Pulmonary Disease
DX: J45.50 Severe persistent asthma, uncomplicated (principal)
CPT/HCPCS: 36415; 82785; 85025

== ENCOUNTER 2020-02-03 11:16 | Emergency (ER) | payer MEDICARE, MEDICAID ==
[2020-02-03 11:47] VITALS: BP 121/74
--- NOTE | 2020-02-03 11:56 | ER Document Report ---
ED General - General Chief Complaint: Difficulty Swallowing Stated Complaint: HEADACHE Time Seen by Provider: 02/03/20 11:55 Primary Care Provider: JIMMY CORONA MD [Primary Care Provider] - Follow up as needed TRAVEL OUTSIDE OF THE [place] IN LAST 30 DAYS: No - Related Data Allergies/Adverse Reactions: acetaminophen [From Tylenol] Allergy (Severe, Verified 02/03/20 11:29) Anaphylaxis levofloxacin [From Levaquin] Allergy (Severe, Verified 02/03/20 11:29) Anaphylaxis lisinopril [Lisinopril] Allergy (Severe, Verified 02/03/20 11:29) sob, throat swelling rosuvastatin [From Crestor] Allergy (Mild, Verified 02/03/20 11:29) Hives atorvastatin calcium [From Lipitor] Adverse Reaction (Severe, Verified 02/03/20 11:29) muscle cramps adhesive tape [Adhesive Tape] Adverse Reaction (Intermediate, Verified 02/03/20 11:29) Hives Past Medical History - Social History Smoking Status: Current Every Day Smoker Chew tobacco use (# tins/day): No Frequency of alcohol use: None Drug Abuse: None Family History: CAD, CVA, DM, Malignancy - Past Medical History Cardiac Medical History: Reports: Hx Congestive Heart Failure, Hx Heart Attack - stent, Hx Hypercholesterolemia Denies: Hx Atrial Fibrillation, Hx Coronary Artery Disease, Hx Hypertension, Hx Peripheral Vascular Disease, Hx Pulmonary Embolism, Hx Heart Murmur Pulmonary Medical History: Reports: Hx Asthma, Hx Bronchitis, Hx COPD, Hx Pneumonia, Hx Respiratory Failure Denies: Hx Sleep Apnea, Hx Tuberculosis Neurological Medical History: Reports: Hx Cerebrovascular Accident. Denies: Hx Seizures, Hx Parkinson's Disease Endocrine Medical History: Denies: Hx Graves' Disease, Hx Hyperthyroidism, Hx Hypothyroidism Renal/ Medical History: Reports: Hx Kidney Stones, Hx Ovarian Cysts. Denies: Hx End Stage Renal Disease, Hx Peritoneal Dialysis, Hx Pelvic Inflammatory Disease Malignancy Medical History: Denies: Hx Breast Cancer, Hx Cervical Cancer, Hx Leukemia, Hx Lung Cancer, Hx Ovarian Cancer GI Medical History: Denies: Hx Crohn's Disease, Hx Gastroesophageal Reflux Disease, Hx Hiatal Hernia, Hx Irritable Bowel, Hx Liver Failure, Hx Pancreatitis, Hx Ulcer Musculoskeletal Medical History: Denies Hx Arthritis, Denies Hx Fibromyalgia, Denies Hx Multiple Sclerosis, Denies Hx Muscular Dystrophy, Denies Hx Systemic Lupus Erythematosus Psychiatric Medical History: Denies: Hx Bipolar Disorder, Hx Dementia, Hx Depression, Hx Post Traumatic Stress Disorder, Hx Schizophrenia Traumatic Medical History: Reports: Hx Fractures - right ankle fracture 1990 Infectious Medical History: Denies: Hx HIV Past Surgical History: Reports: Hx Cardiac Catheterization - with stents, Hx Cardiac Surgery - cardiac stent, Hx Section, Hx Hysterectomy, Hx Pacemaker, Hx Tonsillectomy. Denies: Hx Appendectomy, Hx Bowel Surgery, Hx Cholecystectomy, Hx Colostomy, Hx Coronary Artery Bypass Graft, Hx Gastric Bypass Surgery, Hx Herniorrhaphy, Hx Mastectomy, Hx Tubal Ligation - Immunizations Immunizations up to date: Yes Hx Diphtheria, Pertussis, Tetanus Vaccination: No - unknown Hx Pneumococcal Vaccination: 02/16/15 Physical Exam - Vital signs Vitals: Temp 97.6 F 02/03/20 11:32 Course - Vital Signs Vital signs: Temp Pulse Resp BP Pulse Ox 97.6 F 82 18 121/74 100 02/03/20 11:32 02/03/20 11:45 02/03/20 11:45 02/03/20 11:45 02/03/20 11:45 Discharge - Discharge Referrals: JIMMY CORONA MD [Primary Care Provider] - Follow up as needed
--- NOTE | 2020-02-03 12:27 | RADIOLOGY REPORT (SQ) ---
EXAM DESCRIPTION: SOFT TISSUE NECK IMAGES COMPLETED DATE/TIME: 02/03/2020 12:16 pm REASON FOR STUDY: Feels like something stuck in throat COMPARISON: 2011 NUMBER OF VIEWS: Two views. TECHNIQUE: AP and lateral radiographic image of the soft tissues of the neck. LIMITATIONS: None. FINDINGS: EPIGLOTTIS: Normal. Contour normal. Aryepiglottic folds normal. PREVERTEBRAL SOFT TISSUES: Normal. No soft tissue swelling. SUBGLOTTIC AREA: Normal. No narrowing. RETROPHARYNGEAL SPACE: Normal. No soft tissue masses. BONES: No significant findings. LUNG APICES: Normal. OTHER: No radiopaque foreign body. No other significant finding. IMPRESSION: NEGATIVE STUDY OF THE SOFT TISSUES OF THE NECK. TECHNICAL DOCUMENTATION: JOB ID: [id number] 2010 [employer] All Rights Reserved Reading location - IP/workstation name: [email or web address]
[2020-02-03 12:38] LABS: ABSOLUTE EOSINOPHILS # (AUTO) 0.2 10^3/uL (0.0-0.6); ABSOLUTE LYMPHOCYTES (AUTO) 1.7 10^3/uL (0.5-4.7); ABSOLUTE MONOCYTES (AUTO) 0.4 10^3/uL (0.1-1.4); ABSOLUTE NEUT (AUTO) 5.3 10^3/uL (1.7-8.2); BASOPHILS % (AUTO) 0.6 % (0-2); HEMATOCRIT 44.4 % (36.0-47.0); HEMOGLOBIN 14.8 g/dL (12.0-15.5); LYMPHOCYTES % (AUTO) 22.1 % (13-45); MEAN CORPUSCULAR HEMOGLOBIN 28.7 pg (27.0-33.4); MEAN CORPUSCULAR HGB CONC 33.3 g/dL (32.0-36.0); MEAN CORPUSCULAR VOLUME 86 fl (80-97); MONOCYTES % (AUTO) 5.5 % (3-13); PLATELET COUNT 112 10^3/uL (150-450); RED BLOOD COUNT 5.14 10^6/uL (3.72-5.28); SEGMENTED NEUTROPHILS % (AUTO) 68.8 % (42-78); TOTAL CELLS COUNTED % (AUTO) 100 %; WHITE BLOOD COUNT 7.8 10^3/uL (4.0-10.5)
[2020-02-03 12:53] LABS: ALKALINE PHOSPHATASE 100 U/L (38-126); ANION GAP 6 (5-19); ASPARTATE AMINO TRANSFERASE 31 U/L (14-36); BILIRUBIN,DIRECT 0.2 mg/dL (0.0-0.4); BILIRUBIN,TOTAL 0.5 mg/dL (0.2-1.3); BLOOD UREA NITROGEN 14 mg/dL (7-20); CALCIUM 9.2 mg/dL (8.4-10.2); CARBON DIOXIDE 28 mmol/L (22-30); CHLORIDE 106 mmol/L (98-107); GLUCOSE 98 mg/dL (75-110); POTASSIUM 4.9 mmol/L (3.6-5.0); TOTAL PROTEIN 7.2 g/dL (6.3-8.2)
--- NOTE | 2020-02-03 13:00 | ER Document Report ---
Entered by JOESPH PINK SCRIBE 02/03/20 1205 Acting as scribe for:BERENICE PORTER MD ED General - General Chief Complaint: Difficulty Swallowing Stated Complaint: HEADACHE Time Seen by Provider: 02/03/20 11:55 Primary Care Provider: JIMMY CORONA MD [Primary Care Provider] - Follow up as needed Mode of Arrival: Ambulatory Information source: Patient Notes: This 54 year old female patient presents today with complaints of a possible allergic reaction to her xolair injection today. Patient reports she gets this injection monthly and has gotten it for about a year and has never had a reaction until today. Patient felt normal going into the injection. She reports that about 15 to 20 minutes after the injection she felt "very weak, very racy as if she drank too much coffee, and the sensation that something is stuck in her throat". TRAVEL OUTSIDE OF THE [place] IN LAST 30 DAYS: No - Related Data Allergies/Adverse Reactions: acetaminophen [From Tylenol] Allergy (Severe, Verified 02/03/20 11:29) Anaphylaxis levofloxacin [From Levaquin] Allergy (Severe, Verified 02/03/20 11:29) Anaphylaxis lisinopril [Lisinopril] Allergy (Severe, Verified 02/03/20 11:29) sob, throat swelling rosuvastatin [From Crestor] Allergy (Mild, Verified 02/03/20 11:29) Hives atorvastatin calcium [From Lipitor] Adverse Reaction (Severe, Verified 02/03/20 11:29) muscle cramps adhesive tape [Adhesive Tape] Adverse Reaction (Intermediate, Verified 02/03/20 11:29) Hives Past Medical History - General Information source: Patient - Social History Smoking Status: Current Every Day Smoker Cigarette use (# per day): Yes - now vapes, previously smoked 3 ppd Chew tobacco use (# tins/day): No Frequency of alcohol use: None Drug Abuse: None Lives with: Family Family History: CAD, CVA, DM, Malignancy - Past Medical History Cardiac Medical History: Reports: Hx Congestive Heart Failure, Hx Heart Attack - stent, Hx Hypercholesterolemia Pulmonary Medical History: Reports: Hx Asthma, Hx Bronchitis, Hx COPD, Hx Pneumonia, Hx Respiratory Failure Neurological Medical History: Reports: Hx Cerebrovascular Accident Renal/ Medical History: Reports: Hx Kidney Stones, Hx Ovarian Cysts Traumatic Medical History: Reports: Hx Fractures - right ankle fracture 1990 Past Surgical History: Reports: Hx Cardiac Catheterization - with stents, Hx Section, Hx Coronary Stent - x1, Hx Hysterectomy, Hx Pacemaker, Hx Tonsillectomy, Other - Oophorectomy - Immunizations Immunizations up to date: Yes Hx Diphtheria, Pertussis, Tetanus Vaccination: No - unknown Hx Pneumococcal Vaccination: 02/16/15 Review of Systems - Review of Systems Constitutional: See HPI, Other - possible allergic reaction EENT: No symptoms reported Cardiovascular: No symptoms reported Respiratory: No symptoms reported Gastrointestinal: No symptoms reported Genitourinary: No symptoms reported Female Genitourinary: No symptoms reported Musculoskeletal: No symptoms reported Skin: No symptoms reported Hematologic/Lymphatic: No symptoms reported Neurological/Psychological: No symptoms reported -: Yes All other systems reviewed and negative Physical Exam - Vital signs Vitals: Temp 97.6 F 02/03/20 11:32 - Notes Notes: Physical Exam: General: Alert, hoarse sounding voice. HEENT: Normocephalic. Atraumatic. PERRL. Extraocular movements intact. Oropharynx clear. Neck: Supple. Non-tender. Respiratory: No respiratory distress. Coarse breath sounds bilaterally. Cardiovascular: Regular rate and rhythm. Abdominal: Normal Inspection. Non-tender. No distension. Normal Bowel Sounds. Back: No gross abnormalities. Extremities: Moves all four extremities. Upper extremities: Normal inspection. Normal ROM. Lower extremities: Normal inspection. No edema. Normal ROM. Neurological: Normal cognition. AAOx4. Normal speech. Psychological: Normal affect. Normal Mood. Skin: Warm. Dry. Normal color. Course - Re-evaluation Re-evalutation: 02/03/20 15:20 Patient reports her sensation of difficulty swallowing and feeling "racy" has resolved and she is ready to go home. - Vital Signs Vital signs: Temp Pulse Resp BP Pulse Ox 97.6 F 82 18 121/74 100 02/03/20 11:32 02/03/20 11:45 02/03/20 11:45 02/03/20 11:45 02/03/20 11:45 - Laboratory Results Result Diagrams: 02/03/20 12:15 02/03/20 12:15 Laboratory Results Interpreted: 02/03/20 02/03/20 12:15 13:37 Plt Count 112 L Urine Nitrite POSITIVE H Critical Laboratory Results Reviewed: No Critical Results - Radiology Results Critical Radiology Results Reviewed: No Critical Results - Soft tissue neck x- rays are unremarkable. - EKG Interpretation by Me EKG shows normal: Sinus rhythm, [place], Intervals, QRS Complexes. abnormal: ST-T Waves - Nonspecific anterolateral T abnormalities Rate: Normal - 60 Rhythm: Other - Atrial paced rhythm Discharge - Discharge Clinical Impression: Swallowing difficulty Qualifiers: Dysphagia type: unspecified Qualified Code(s): R13.10 - Dysphagia, unspecified Condition: Stable Disposition: HOME, SELF-CARE Additional Instructions: There is no clear explanation for the symptoms you felt today after you got your Xolair shot. For today you should drink plenty of fluids get plenty of rest. Talk with your doctor to see if premedication might be considered before your next Xolair injection. RETURN TO THE EMERGENCY ROOM IF ANY NEW OR WORSENING SYMPTOMS. Referrals: JIMMY CORONA MD [Primary Care Provider] - Follow up as needed I personally performed the services described in the documentation, reviewed and edited the documentation which was dictated to the scribe in my presence, and it accurately records my words and actions.
[2020-02-03 14:58] LABS: APPEARANCE,URINE CLEAR; BILIRUBIN,URINE NEGATIVE (NEGATIVE); COLOR,URINE YELLOW; GLUCOSE, URINE NEGATIVE (NEGATIVE); KETONES,URINE NEGATIVE (NEGATIVE); LEUKOCYTE ESTERASE,URINE NEGATIVE (NEGATIVE); NITRITE,URINE POSITIVE (NEGATIVE); PROTEIN,URINE NEGATIVE (NEGATIVE); URINE SPECIFIC GRAVITY 1.016; UROBILINOGEN,URINE NEGATIVE mg/dL (<2.0)
--- NOTE | 2020-02-04 17:21 | EKG REPORT ---
SEVERITY:- ABNORMAL ECG - ATRIAL-PACED RHYTHM NONSPECIFIC T ABNORMALITIES, ANT-LAT LEADS : Confirmed by: Elen Alfonso MD 04-Feb-2020 17:20:07
== END 2020-02-03 15:40 | disposition home or self-care (01) ==
LOC: ER 11:16
DX: R13.10 Dysphagia, unspecified (principal); F17.290 Nicotine dependence, other tobacco product, uncomplicated; I50.9 Heart failure, unspecified; E78.00 Pure hypercholesterolemia, unspecified; I25.2 Old myocardial infarction; Z88.6 Allergy status to analgesic agent
CPT/HCPCS: 36415; 70360; 80053; 81001; 85025; 93005; 93010; 99285